=== PATIENT | male | born 1930 | race Caucasian/White ===

== ENCOUNTER 2017-03-01 23:25 | Inpatient (IN) | payer MEDICARE, OTHER ==
[~2017-03-01] VITALS: Ht 182.9 cm; Wt 101.6 kg
[~2017-03-01 23:25] MED LIST: ACET325T9 PO; CYAN10005 PO; DONE10TA7 PO; INSU100V13 SQ; MELA3TAB2 PO; MEMA10TA PO; METF500T4 PO; OSEL75CA PO; QUET25TA5 PO; VALP250S3 PO
[2017-03-01] MEDS ORDERED: fentaNYL PF VIAL 100 MCG/2 ML VIAL IV PRN (23:30)
--- NOTE | 2017-03-01 23:46 | ED.ADGEN ---
Past Medical History Past Medical History: Anxiety, Dementia, Depression, Diabetes-Type II, Other Additional Past Medical Histor: Psychosis,Osteoarthritis, alzheimers, insomnia Past Surgical History: Other Additional Past Surgical Histo: unknown surgical hx. pt poor historian. Alcohol Use: None Drug Use: None Adult General Chief Complaint Chief Complaint: MECHANICAL FALL HPI HPI Patient is a 86-year-old man with a history of dementia, type 2 diabetes mellitus, anxiety, who presents to the emergency department via EMS from his nursing facility with report of fall and a rotated and shortened right lower extremity. Per EMS report, they were only given their details, the patient was lying in bed when the arrived, they were told by nursing staff that the patient had fallen, and there was concern for hip injury. C-collar placed upon arousing the emergency department based on patient's inability to answer questions, and concern for distracting injury with unclear history. Patient her report, is at baseline mental status this time, states that he usually does not answer questions, sometimes will speak but his speech is incomprehensible. Patient is awake, alert, and is moving his upper extremities, noted to have shortening rotation of the right lower extremity, grimacing with motion. Review of Systems Review of Systems Unable to obtain secondary to mental status and nonverbal status Current Medications Current Medications Current Medications Medications (Trade) Dose Ordered Sig/Jennifer Start Time Stop Time Status Last Admin Dose Admin Fentanyl Citrate (Fentanyl 2ml Vial) 25 mcg PRN Q15MIN PRN 03/01/17 23:30 03/02/17 23:29 03/02/17 00:49 25 MCG Allergies Allergies Allergies Coded Allergies Type Severity Reaction Last Updated Verified No Known Drug Allergies 09/20/13 No Physical Exam Physical Exam Constitutional: Well developed, well nourished, no acute distress, non-toxic appearance. [] HENT: Normocephalic, atraumatic, bilateral external ears normal, oropharynx moist, no oral exudates, nose normal. [] Eyes: PERRLA, EOMI, conjunctiva normal, no discharge. [] Neck: C-collar in place, symptoms or deformities appreciated, no tenderness, supple, no stridor. [] Cardiovascular:Heart rate regular rhythm, no murmur, S1, S2, 3-5 cm, rubs or gallops. [] Lungs & Thorax: Diminished breath sounds at bases bilaterally. No rhonchi or rales. Abdomen: Bowel sounds normal, soft, no rebound, rigidity, no guarding, no tenderness, no masses, no pulsatile masses. [] Skin: Warm, dry, no erythema, no rash. [] Back: No tenderness, no midline tenderness, step-offs or deformities, no signs of trauma, no CVA tenderness. [] Extremities: Patient with 2+ pitting edema bilaterally, noted have shortening and external rotation of the right lower extremity, with tenderness palpation of the left lower extremity, from the greater trochanter, down to the ankle, noted to have chronic venous stasis changes, no evidence of acute trauma. Adult diaper in place, no cyanosis, no clubbing, ROM intact, no edema. [] Patient moving upper extremity without issue, no evidence of injury. Neurologic: Patient is moving upper extremities, is alert and awake, at baseline mental status per report from nursing facility, Psychologic: Affect normal, judgement normal, mood normal. [] Current Patient Data Vital Signs Vital Signs Date Time Temp Pulse Resp B/P (MAP) Pulse Ox O2 Delivery O2 Flow Rate FiO2 03/02/17 01:19 clearing for ed 03/02/17 01:00 78 13 97 03/01/17 23:40 97.9 158/79 (105) 97.9 Lab Values Laboratory Tests Test 03/01/17 23:50 03/02/17 00:40 White Blood Count 13.0 x10^3/uL (4.0-11.0) H Red Blood Count 4.97 x10^6/uL (4.30-5.70) Hemoglobin 14.3 g/dL (13.0-17.5) Hematocrit 43.6 % (39.0-53.0) Mean Corpuscular Volume 88 fL (79-100) Mean Corpuscular Hemoglobin 29 pg (25-35) Mean Corpuscular Hemoglobin Concent 33 g/dL (31-37) Red Cell Distribution Width 14.4 % (11.5-14.5) Platelet Count 209 x10^3/uL (140-400) Neutrophils (%) (Auto) 81 % (31-73) H Lymphocytes (%) (Auto) 12 % (24-48) L Monocytes (%) (Auto) 7 % (0-9) Eosinophils (%) (Auto) 0 % (0-3) Basophils (%) (Auto) 0 % (0-3) Neutrophils # (Auto) 10.5 x10^3uL (1.8-7.7) H Lymphocytes # (Auto) 1.5 x10^3/uL (1.0-4.8) Monocytes # (Auto) 0.8 x10^3/uL (0.0-1.1) Eosinophils # (Auto) 0.0 x10^3/uL (0.0-0.7) Basophils # (Auto) 0.0 x10^3/uL (0.0-0.2) Sodium Level 140 mmol/L (136-145) Potassium Level 4.2 mmol/L (3.5-5.1) Chloride Level 102 mmol/L (98-107) Carbon Dioxide Level 29 mmol/L (21-32) Anion Gap 9 (6-14) Blood Urea Nitrogen 13 mg/dL (8-26) Creatinine 1.4 mg/dL (0.7-1.3) H Estimated GFR (Cockcroft-Gault) 47.9 BUN/Creatinine Ratio 9 (6-20) Glucose Level 187 mg/dL (70-99) H Calcium Level 8.9 mg/dL (8.5-10.1) Total Bilirubin 0.8 mg/dL (0.2-1.0) Aspartate Amino Transferase (AST) 25 U/L (15-37) Alanine Aminotransferase (ALT) 22 U/L (16-63) Alkaline Phosphatase 79 U/L (46-116) Myoglobin 314 ng/mL (16-96) H Troponin I Quantitative < 0.017 ng/mL (0.000-0.055) Total Protein 6.6 g/dL (6.4-8.2) Albumin 3.2 g/dL (3.4-5.0) L Albumin/Globulin Ratio 0.9 (1.0-1.7) L Urine Collection Type Unknown Urine Color Yellow Urine Clarity Clear Urine pH 8.5 Urine Specific [place] 1.015 Urine Protein Negative mg/dL (NEG-TRACE) Urine Glucose (UA) Negative mg/dL (NEG) Urine Ketones (Stick) 15 mg/dL (NEG) Urine Blood Negative (NEG) Urine Nitrite Negative (NEG) Urine Bilirubin Negative (NEG) Urine Urobilinogen Dipstick 1.0 mg/dL (0.2 mg/dL) Urine Leukocyte Esterase Negative (NEG) Urine RBC 3-5 /HPF (0-2) Urine WBC 0 /HPF (0-4) Urine Squamous Epithelial Cells Occ /LPF Urine Bacteria 0 /HPF (0-FEW) Urine Mucus Slight /LPF Laboratory Tests 03/01/17 23:50 Laboratory Tests 03/01/17 23:50 EKG EKG EC: Sinus rhythm, heart rate 77 beats/minute, left axis deviation, QTC of 436, HI 190, QRS of 88, a ramos with Q waves noted in the inferior leads, mild baseline artifact noted, abnormal ECG, does not meet STEMI criteria. As interpreted by me.[] Radiology/Procedures Radiology/Procedures [][facility] [address] [place], [place] [id number] IMAGING REPORT Signed PATIENT: MARIBEL LARSEN ACCOUNT: [id number] : 1930 LOCATION: ER AGE: 86 SEX: M EXAM STATUS: REG ER ORD. PHYSICIAN: TAMMI RALPH DO REASON: fall PROCEDURE: KNEE RIGHT 2V Right hip AP and lateral x-rays and AP pelvis x-ray HISTORY: Right-sided pain after a fall FINDINGS: There is decrease sensitivity to detect subtle bone pathology due to film technique and patient body habitus and patient motion during the exam. There is an acute femoral neck fracture with varus deformity with lucency of the lateral femoral neck presumably due to distraction of the fracture although a pathologic fracture due to a lytic bone lesion is not excluded. On the lateral film the femoral neck appears to be distracted anteriorly relative to the femoral head a mild degree. The remainder of the pelvis is unremarkable. IMPRESSION: Right acute femoral neck fracture as described above. Right knee x-rays 2 views HISTORY: Fall, right knee pain FINDINGS: No fracture or dislocation. Osteoarthritis of the medial compartment with full-thickness joint space loss and osteophytes with lesser degenerative change at the lateral and patellofemoral compartments. Chronic ossicle quadriceps tendon. Mild nasal soft tissue edema. IMPRESSION: No acute abnormality evident. Electronically signed by: Isabelle Jasso MD (03/02/2017 1:08 AM) [id number] DICTATED and SIGNED BY: ISABELLE JASSO MD DATE: 03/02/17 0104 CC: TAWANA MEIER; TAMMI RALPH DO ~ Impressions: [facility] [address] [place] [address] IMAGING REPORT Signed PATIENT: MARIBEL LARSEN ACCOUNT: [id number] : 1930 LOCATION: ER AGE: 86 SEX: M EXAM STATUS: REG ER ORD. PHYSICIAN: TAMMI RALPH DO REASON: Fall PROCEDURE: CT HEAD AND CERVICAL SPINE WO CT head without contrast. CT cervical spine without contrast. TECHNIQUE: 5 mm axial noncontrast imaging skull base to vertex. Helical noncontrast imaging of the cervical spine. HISTORY: Trauma, fell and hit head, head pain. 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 Generalized brain atrophy. Cerebral periventricular white matter hypoattenuation likely changes of chronic microvascular disease. No intracranial hemorrhage, mass, hydrocephalus or acute infarction. Orbits, paranasal sinuses, mastoids and bones are unremarkable. IMPRESSION: No acute intracranial CT abnormality. CT cervical spine findings: There is significant patient motion at the craniocervical junction and C1 and C2 vertebra limiting evaluation for injuries including fractures at these levels. No gross evidence of fracture of the C1 or C2 vertebra. Remainder of the cervical spine demonstrates intact vertebral body height and alignment. 1 mm anterolisthesis C7 on T1 associated with facet osteoarthritis. No fracture evident. If there is clinical suspicion of a traumatic injury of the upper cervical spine consider follow-up imaging. Multilevel disc height loss and disc osteophytes and uncovertebral and facet osteophytes with spinal canal and neural foraminal stenoses. Lung apices and paraspinal tissues are unremarkable. IMPRESSION: Extensive motion artifact at the upper cervical spine limiting evaluation of the C1 and C2 vertebra. The remainder of the cervical spine imaged without patient motion demonstrates no acute injury. Cervical disc disease is present. See discussion above. Exposure: One or more of the following individualized dose reduction techniques were utilized for this examination: 1. Automated exposure control 2. Adjustment of the mA and/or kV according to patient size 3. Use of iterative reconstruction technique Electronically signed by: Isabelle Jasso MD (03/02/2017 12:35 AM) [facility] DICTATED and SIGNED BY: ISABELLE JASSO MD DATE: 03/02/1726 CC: TAWANA MEIER; TAMMI RALPH DO ~ Course & Med Decision Making Course & Med Decision Making Pertinent Labs and Imaging studies reviewed. (See chart for details) Limited information available upon patient's arrival to the ED, imaging of the head and neck were ordered, along with laboratory studies an ECG, and imaging of the right lower extremity and pelvis. Additional information obtained from nursing facility by nurse Lau, per nursing report, patient had a fall around 4:30 in the afternoon while ambulating with assistance of the staff member, which is his usual mode of ambulation. Per report, patient tripped and had a mechanical fall. Patient was then moved to his bed, and was unwilling to weight bear at that time, therefore portable x-ray was ordered, but nursing facility was apparently unable to obtain portal x-ray, therefore EMS was contacted to transfer the patient to the ED for evaluation. There was no prolonged downtime, and no evidence of concerning symptoms preceding this fall per report. CT of the head and neck obtained, somewhat limited secondary to motion artifact, but no gross fractures or other abnormalities identified, patient's c-collar was cleared in the ED. X-ray of the right hip reveals a right femoral neck fracture , other x-rays are unremarkable. [place] catheter placed in the ED. No evidence of UTI, no other acutely concerning findings identified. I did discuss findings as above with Dr. Conte, the patient's primary care provider, patient was accepted his service as a full admission to the medical telemetry floor, with symptom management including pain medication and antinausea medication written for, consultation placed for Dr. Burgess of orthopedics to evaluate the patient in the morning. Bridge orders entered per discussion. Dragon Disclaimer Dragon Disclaimer This electronic medical record was generated, in whole or in part, using a voice recognition dictation system. Departure Impression: Primary Impression: Fracture of femoral neck, right Disposition: ADMITTED INPATIENT Admitting Physician: Daniele Jones Condition: IMPROVED TAMMI RALPH DO Mar 01, 2017 23:46
[2017-03-02] LABS: BASO % 0 % (0-3); EOS % 0 % (0-3); HEMATOCRIT 43.6 % (39.0-53.0); HEMOGLOBIN 14.3 g/dL (13.0-17.5); LYMPH # 1.5 x10^3/uL (1.0-4.8); LYMPH % 12 % (24-48); MEAN CORPUSCULAR HEMOGLOBIN 29 pg (25-35); MEAN CORPUSCULAR HGB CONC 33 g/dL (31-37); MEAN CORPUSCULAR VOLUME 88 fL (79-100); MONO % 7 % (0-9); NEUT % 81 % (31-73); PLATELET COUNT 209 x10^3/uL (140-400); RED BLOOD COUNT 4.97 x10^6/uL (4.30-5.70); RED CELL DISTRIBUTION WIDTH 14.4 % (11.5-14.5)
[2017-03-02 00:13] LABS: CALCIUM 8.9 mg/dL (8.5-10.1); CREATININE 1.4 mg/dL (0.7-1.3); GFR 47.9; POTASSIUM 4.2 mmol/L (3.5-5.1)
[2017-03-02 00:20] LABS: ALBUMIN 3.2 g/dL (3.4-5.0); ALBUMIN/GLOBULIN RATIO 0.9 (1.0-1.7); TOTAL BILIRUBIN 0.8 mg/dL (0.2-1.0); TOTAL PROTEIN 6.6 g/dL (6.4-8.2)
--- NOTE | 2017-03-02 00:38 | RAD ---
CT head without contrast. CT cervical spine without contrast. TECHNIQUE: 5 mm axial noncontrast imaging skull base to vertex. Helical noncontrast imaging of the cervical spine. HISTORY: Trauma, fell and hit head, head pain. 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 Generalized brain atrophy. Cerebral periventricular white matter hypoattenuation likely changes of chronic microvascular disease. No intracranial hemorrhage, mass, hydrocephalus or acute infarction. Orbits, paranasal sinuses, mastoids and bones are unremarkable. IMPRESSION: No acute intracranial CT abnormality. CT cervical spine findings: There is significant patient motion at the craniocervical junction and C1 and C2 vertebra limiting evaluation for injuries including fractures at these levels. No gross evidence of fracture of the C1 or C2 vertebra. Remainder of the cervical spine demonstrates intact vertebral body height and alignment. 1 mm anterolisthesis C7 on T1 associated with facet osteoarthritis. No fracture evident. If there is clinical suspicion of a traumatic injury of the upper cervical spine consider follow-up imaging. Multilevel disc height loss and disc osteophytes and uncovertebral and facet osteophytes with spinal canal and neural foraminal stenoses. Lung apices and paraspinal tissues are unremarkable. IMPRESSION: Extensive motion artifact at the upper cervical spine limiting evaluation of the C1 and C2 vertebra. The remainder of the cervical spine imaged without patient motion demonstrates no acute injury. Cervical disc disease is present. See discussion above. Exposure: One or more of the following individualized dose reduction techniques were utilized for this examination: 1. Automated exposure control 2. Adjustment of the mA and/or kV according to patient size 3. Use of iterative reconstruction technique Electronically signed by: Klaus Jasso MD (03/02/2017 12:35 AM) [facility]
[2017-03-02 00:51] LABS: BILIRUBIN,URINE NEGATIVE (NEG); GLUCOSE,URINE NEGATIVE (NEG); NITRITE,URINE NEGATIVE (NEG); PH,URINE 8.5; PROTEIN,URINE NEGATIVE (NEG-TRACE)
[2017-03-02 01:03] LABS: BACTERIA,URINE 0 /HPF (0-FEW); SQUAMOUS EPITHELIAL CELL,UR OCC /LPF; WBC,URINE 0 /HPF (0-4)
--- NOTE | 2017-03-02 01:11 | RAD ---
Right hip AP and lateral x-rays and AP pelvis x-ray HISTORY: Right-sided pain after a fall FINDINGS: There is decrease sensitivity to detect subtle bone pathology due to film technique and patient body habitus and patient motion during the exam. There is an acute femoral neck fracture with varus deformity with lucency of the lateral femoral neck presumably due to distraction of the fracture although a pathologic fracture due to a lytic bone lesion is not excluded. On the lateral film the femoral neck appears to be distracted anteriorly relative to the femoral head a mild degree. The remainder of the pelvis is unremarkable. IMPRESSION: Right acute femoral neck fracture as described above. Right knee x-rays 2 views HISTORY: Fall, right knee pain FINDINGS: No fracture or dislocation. Osteoarthritis of the medial compartment with full-thickness joint space loss and osteophytes with lesser degenerative change at the lateral and patellofemoral compartments. Chronic ossicle quadriceps tendon. Mild nasal soft tissue edema. IMPRESSION: No acute abnormality evident. Electronically signed by: Klaus Jasso MD (03/02/2017 1:08 AM) [facility]
[2017-03-02] MEDS ORDERED: ACETAMINOPHEN 325 MG TABLET. PO PRN (02:00)
[2017-03-02] MEDS ORDERED: ONDANSETRON PF 4 MG/2 ML VIAL. IV PRN (02:00)
[2017-03-02 02:30] VITALS: BP 142/68
[2017-03-02] MEDS ORDERED: DEXTROSE 50% 25 GM / 50ML DISP.SYRIN. IV PRN (02:30)
[2017-03-02] MEDS ORDERED: FURO-69 PO (04:40)
[2017-03-02] MEDS ORDERED: IPRA0.2S5 NEB (04:40)
[2017-03-02] MEDS ORDERED: SIMV10TA3 PO (04:40)
[2017-03-02] MEDS ORDERED: MEMA10TA PO (04:40)
[2017-03-02] MEDS ORDERED: POTA20LI27 PO (04:40)
[2017-03-02] MEDS ORDERED: DONE10TA61 PO (04:40)
[2017-03-02] MEDS ORDERED: LEVO50TA5 PO (04:40)
[2017-03-02] MEDS ORDERED: ONDA4TAB10 SL (04:40)
[2017-03-02] MEDS ORDERED: INSU100V13 SQ (04:40)
[2017-03-02] MEDS ORDERED: LORA10TA68 PO (04:40)
[2017-03-02] MEDS ORDERED: ACET500T68 PO (04:40)
[2017-03-02 07:00] VITALS: BP 118/64
--- NOTE | 2017-03-02 07:54 | EKG ---
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
[2017-03-02] MEDS: INSULIN ASPART 300 UNITS/3 ML INSULN.PEN SQ SCH ×3 (08:00→17:14)
--- NOTE | 2017-03-02 08:20 | PDOC ---
ORTHO PROGRESS NOTES Vitals Vital Signs Date Time Temp Pulse Resp B/P (MAP) Pulse Ox O2 Delivery O2 Flow Rate FiO2 03/02/17 03:02 Room Air 03/02/17 02:30 97.9 79 15 142/68 (92) 95 97.9 Labs Laboratory Tests Test 03/01/17 23:50 03/02/17 00:40 White Blood Count 13.0 x10^3/uL (4.0-11.0) Red Blood Count 4.97 x10^6/uL (4.30-5.70) Hemoglobin 14.3 g/dL (13.0-17.5) Hematocrit 43.6 % (39.0-53.0) Mean Corpuscular Volume 88 fL (79-100) Mean Corpuscular Hemoglobin 29 pg (25-35) Mean Corpuscular Hemoglobin Concent 33 g/dL (31-37) Red Cell Distribution Width 14.4 % (11.5-14.5) Platelet Count 209 x10^3/uL (140-400) Neutrophils (%) (Auto) 81 % (31-73) Lymphocytes (%) (Auto) 12 % (24-48) Monocytes (%) (Auto) 7 % (0-9) Eosinophils (%) (Auto) 0 % (0-3) Basophils (%) (Auto) 0 % (0-3) Neutrophils # (Auto) 10.5 x10^3uL (1.8-7.7) Lymphocytes # (Auto) 1.5 x10^3/uL (1.0-4.8) Monocytes # (Auto) 0.8 x10^3/uL (0.0-1.1) Eosinophils # (Auto) 0.0 x10^3/uL (0.0-0.7) Basophils # (Auto) 0.0 x10^3/uL (0.0-0.2) Sodium Level 140 mmol/L (136-145) Potassium Level 4.2 mmol/L (3.5-5.1) Chloride Level 102 mmol/L (98-107) Carbon Dioxide Level 29 mmol/L (21-32) Anion Gap 9 (6-14) Blood Urea Nitrogen 13 mg/dL (8-26) Creatinine 1.4 mg/dL (0.7-1.3) Estimated GFR (Cockcroft-Gault) 47.9 BUN/Creatinine Ratio 9 (6-20) Glucose Level 187 mg/dL (70-99) Calcium Level 8.9 mg/dL (8.5-10.1) Total Bilirubin 0.8 mg/dL (0.2-1.0) Aspartate Amino Transf (AST/SGOT) 25 U/L (15-37) Alanine Aminotransferase (ALT/SGPT) 22 U/L (16-63) Alkaline Phosphatase 79 U/L (46-116) Myoglobin 314 ng/mL (16-96) Troponin I Quantitative < 0.017 ng/mL (0.000-0.055) Total Protein 6.6 g/dL (6.4-8.2) Albumin 3.2 g/dL (3.4-5.0) Albumin/Globulin Ratio 0.9 (1.0-1.7) Urine Collection Type Unknown Urine Color Yellow Urine Clarity Clear Urine pH 8.5 Urine Specific [place] 1.015 Urine Protein Negative mg/dL (NEG-TRACE) Urine Glucose (UA) Negative mg/dL (NEG) Urine Ketones (Stick) 15 mg/dL (NEG) Urine Blood Negative (NEG) Urine Nitrite Negative (NEG) Urine Bilirubin Negative (NEG) Urine Urobilinogen Dipstick 1.0 mg/dL (0.2 mg/dL) Urine Leukocyte Esterase Negative (NEG) Urine RBC 3-5 /HPF (0-2) Urine WBC 0 /HPF (0-4) Urine Squamous Epithelial Cells Occ /LPF Urine Bacteria 0 /HPF (0-FEW) Urine Mucus Slight /LPF Laboratory Tests Test 03/01/17 23:50 03/02/17 00:40 White Blood Count 13.0 x10^3/uL (4.0-11.0) Red Blood Count 4.97 x10^6/uL (4.30-5.70) Hemoglobin 14.3 g/dL (13.0-17.5) Hematocrit 43.6 % (39.0-53.0) Mean Corpuscular Volume 88 fL (79-100) Mean Corpuscular Hemoglobin 29 pg (25-35) Mean Corpuscular Hemoglobin Concent 33 g/dL (31-37) Red Cell Distribution Width 14.4 % (11.5-14.5) Platelet Count 209 x10^3/uL (140-400) Neutrophils (%) (Auto) 81 % (31-73) Lymphocytes (%) (Auto) 12 % (24-48) Monocytes (%) (Auto) 7 % (0-9) Eosinophils (%) (Auto) 0 % (0-3) Basophils (%) (Auto) 0 % (0-3) Neutrophils # (Auto) 10.5 x10^3uL (1.8-7.7) Lymphocytes # (Auto) 1.5 x10^3/uL (1.0-4.8) Monocytes # (Auto) 0.8 x10^3/uL (0.0-1.1) Eosinophils # (Auto) 0.0 x10^3/uL (0.0-0.7) Basophils # (Auto) 0.0 x10^3/uL (0.0-0.2) Sodium Level 140 mmol/L (136-145) Potassium Level 4.2 mmol/L (3.5-5.1) Chloride Level 102 mmol/L (98-107) Carbon Dioxide Level 29 mmol/L (21-32) Anion Gap 9 (6-14) Blood Urea Nitrogen 13 mg/dL (8-26) Creatinine 1.4 mg/dL (0.7-1.3) Estimated GFR (Cockcroft-Gault) 47.9 BUN/Creatinine Ratio 9 (6-20) Glucose Level 187 mg/dL (70-99) Calcium Level 8.9 mg/dL (8.5-10.1) Total Bilirubin 0.8 mg/dL (0.2-1.0) Aspartate Amino Transf (AST/SGOT) 25 U/L (15-37) Alanine Aminotransferase (ALT/SGPT) 22 U/L (16-63) Alkaline Phosphatase 79 U/L (46-116) Myoglobin 314 ng/mL (16-96) Troponin I Quantitative < 0.017 ng/mL (0.000-0.055) Total Protein 6.6 g/dL (6.4-8.2) Albumin 3.2 g/dL (3.4-5.0) Albumin/Globulin Ratio 0.9 (1.0-1.7) Urine Collection Type Unknown Urine Color Yellow Urine Clarity Clear Urine pH 8.5 Urine Specific [place] 1.015 Urine Protein Negative mg/dL (NEG-TRACE) Urine Glucose (UA) Negative mg/dL (NEG) Urine Ketones (Stick) 15 mg/dL (NEG) Urine Blood Negative (NEG) Urine Nitrite Negative (NEG) Urine Bilirubin Negative (NEG) Urine Urobilinogen Dipstick 1.0 mg/dL (0.2 mg/dL) Urine Leukocyte Esterase Negative (NEG) Urine RBC 3-5 /HPF (0-2) Urine WBC 0 /HPF (0-4) Urine Squamous Epithelial Cells Occ /LPF Urine Bacteria 0 /HPF (0-FEW) Urine Mucus Slight /LPF Assessment and Plan Xrays reviewed discussed with patient's POA, he would like to call other family very low level of ambulation per report from YENNY MINAYA II, MD Mar 02, 2017 08:20
--- NOTE | 2017-03-02 08:20 | RAD ---
2 view right ankle study Clinical indications: Fall and pain. Findings: No acute fracture or dislocation or osteolytic process is seen. The mortise ankle joint is intact. IMPRESSION: No acute fracture.
--- NOTE | 2017-03-02 08:23 | RAD ---
Portable AP supine view CXR: Clinical indications: Fall and pain.. Comparison: May 31, 2014. Findings: No acute lung infiltrate or pleural effusion or pulmonary edema or lung mass or pneumothorax is seen. The heart size, pulmonary vasculature, mediastinum and both manny are unremarkable. No obvious rib deformity is seen. Impression: No acute radiographic abnormality is seen.
--- NOTE | 2017-03-02 08:58 | PDOC ---
Provider Note Provider Note [id number] JESSICA VERDUGO MD Mar 02, 2017 08:58
[2017-03-02] MEDS: POTASSIUM CL 20MEQ D5-0.45NACL 1,000 ML IV SCH ×2 (09:00→22:20)
[2017-03-02] MEDS: CYANOCOBALAMIN (VITAMIN B-12) 1,000 MCG TABLET. PO SCH ×2 (09:00→10:16)
[2017-03-02] MEDS: LEVOTHYROXINE 50 MCG TABLET PO SCH ×2 (09:00→10:16)
[2017-03-02] MEDS: POTASSIUM CHLORIDE 20 MEQ/15 ML ORAL LIQUID. PO SCH ×2 (09:00→10:16)
[2017-03-02] MEDS ORDERED: ONDANSETRON ODT 4 MG TAB.RAPDIS. PO PRN (09:00)
[2017-03-02] MEDS: VALPROIC ACID (AS SODIUM SALT) 250 MG/5 ML SOLUTION. PO SCH ×3 (09:00→21:00)
[2017-03-02] MEDS: DONEPEZIL HCL 10 MG TABLET. PO SCH (09:00)
--- NOTE | 2017-03-02 09:22 | CONS ---
DATE OF CONSULTATION: 03/02/2017 DATE OF SERVICE: 03/02/2017 REFERRING PHYSICIAN: Daniele Jones MD CONSULTING PROVIDER: Aneudy Burgess MD REASON FOR CONSULTATION: Right femoral neck fracture. CHIEF COMPLAINT: Unobtainable. HISTORY OF PRESENT ILLNESS: The patient is an 86-year-old with advanced Alzheimer dementia who normally ambulates at a very low level, he requires 2 people to get up and will shuffle for very short distances. He was found down at his long term and was brought in for concern over a hip injury. The patient is normally noncommunicative and has not talked for 6-7 years per his power of workers compensation defense attorney. REVIEW OF SYSTEMS: Unobtainable secondary to the patient's baseline mental status. MEDICATIONS: Reviewed, please see MRAD. ALLERGIES: None. FAMILY HISTORY: Unobtainable. SOCIAL HISTORY: Resides in a long term. PHYSICAL EXAMINATION: GENERAL: The patient is awake. He does not answer or ask questions. He does not follow commands. HEENT: Head normocephalic, atraumatic. CARDIOVASCULAR: Regular rate and rhythm. He does have edema bilaterally at his ankles. LUNGS: Respirations are unlabored and symmetric chest rise. ABDOMEN: Soft, nondistended. EXTREMITIES: Examination of bilateral lower extremities reveals chronic venous stasis changes bilaterally. Dorsalis pedis 1+. He does spontaneously wiggle his toes bilaterally. His right lower extremity is shortened and externally rotated. IMAGING: X-rays that were interpreted by myself. Knee ankle and hip x-rays. He has degenerative changes present in his knee. He has a complete femoral neck fracture on the right side. LABORATORY DATA: Reviewed. CBC and CMP were reviewed. His creatinine is slightly elevated. IMPRESSION: 1. Closed right femoral neck fracture. 2. Alzheimer dementia. PLAN: I did discuss with this patient's power of workers compensation defense attorney the pros and cons of operative versus nonoperative treatment. The patient's power of workers compensation defense attorney was uncertain how he would like to proceed and would like to discuss it with other family members today. Plan is for this gentleman to call us back sometime today after he has had a chance to do so and let us know what the family's wishes are. Regardless of treatment, I do not think that surgical intervention versus nonsurgical intervention would result in any change in ambulation in the future. ANEUDY BURGESS MD DR: Cyndy JOB#: [id number] / [id number] LILLIAM
--- NOTE | 2017-03-02 09:35 | HP ---
ADMIT DATE: 03/02/2017 DATE OF SERVICE: 03/02/2017 CHIEF COMPLAINT: Fall. HISTORY OF PRESENT ILLNESS: The patient is an 86-year-old white male with advanced dementia. A patient of Dr. Jones, who apparently had a fall and has right femoral neck fracture. Dr. Toussaint has talked to the family and they are considering operative intervention versus comfort care at this point given the patient's advanced level of dementia. He lives in [place] and apparently is nonverbal and otherwise has been in good health. PAST MEDICAL HISTORY: Largely unknown. MEDICATIONS: Listed per the chart shows he has insulin-dependent diabetes, dementia and hypothyroidism. ALLERGIES: No allergies are known. PAST SURGICAL HISTORY: Unknown. SOCIAL HISTORY: Lives in a [place], nonsmoker, nondrinker, apparently . FAMILY HISTORY: Unknown. REVIEW OF SYSTEMS: No other specific complaints. PHYSICAL EXAMINATION: ENT: He has warty lesion on the left upper eyelid, otherwise all within normal limits except mucosa are somewhat dry. NECK: No carotid bruits, nodes or thyroid enlargement. LUNGS: Clear. CARDIOVASCULAR: Regular rate. No irregular beat or murmur. ABDOMEN: Soft, benign and nontender. EXTREMITIES: Right leg is shortened and externally rotated with compression devices on. NEUROLOGIC: Nonfocal, nonverbal, not responsive to questions. No tremors are noted. ASSESSMENT: Advanced dementia with right femoral neck fracture. Laboratory is unremarkable. PLAN: DNR, comfort care, IV fluids till operative decision was made by the family. JESSICA VERDUGO MD DR: HOLDEN/aba JOB#: [id number] / [id number]
[2017-03-02 11:00] VITALS: BP 138/56
[2017-03-02] MEDS: MORPHINE SULFATE 4 MG/ML DISP.SYRIN. IV PRN ×2 (12:23→17:26)
[2017-03-02] MEDS: ACETAMINOPHEN 500 MG TABLET PO SCH (13:00)
[2017-03-02] MEDS: MEMANTINE 10 MG TABLET. PO SCH (13:00)
[2017-03-02 15:00] VITALS: BP 110/55
[2017-03-02 19:00] VITALS: BP 120/57
[2017-03-02] MEDS: SIMVASTATIN 10 MG TABLET PO SCH (21:00)
[2017-03-02 23:00] VITALS: BP 133/57
[2017-03-03] VITALS (11 sets, daily range): BP systolic 84–142; BP diastolic 47–89
[2017-03-03 06:19] LABS: BASO # 0.1 x10^3/uL (0.0-0.2); BASO % 1 % (0-3); EOS % 3 % (0-3); HEMATOCRIT 39.7 % (39.0-53.0); HEMOGLOBIN 13.3 g/dL (13.0-17.5); LYMPH # 1.8 x10^3/uL (1.0-4.8); LYMPH % 18 % (24-48); MEAN CORPUSCULAR HEMOGLOBIN 29 pg (25-35); MEAN CORPUSCULAR HGB CONC 33 g/dL (31-37); MEAN CORPUSCULAR VOLUME 87 fL (79-100); MONO % 8 % (0-9); NEUT % 71 % (31-73); PLATELET COUNT 168 x10^3/uL (140-400); RED BLOOD COUNT 4.54 x10^6/uL (4.30-5.70); RED CELL DISTRIBUTION WIDTH 14.7 % (11.5-14.5)
[2017-03-03 06:38] LABS: CALCIUM 8.4 mg/dL (8.5-10.1); CREATININE 1.5 mg/dL (0.7-1.3); GFR 44.3; POTASSIUM 4.2 mmol/L (3.5-5.1)
[2017-03-03] MEDS: LEVOTHYROXINE 50 MCG TABLET PO SCH (07:00)
[2017-03-03] MEDS: INSULIN ASPART 300 UNITS/3 ML INSULN.PEN SQ SCH ×3 (08:00→18:24)
[2017-03-03] MEDS: DONEPEZIL HCL 10 MG TABLET. PO SCH (08:58)
[2017-03-03] MEDS: VALPROIC ACID (AS SODIUM SALT) 250 MG/5 ML SOLUTION. PO SCH ×2 (08:58→21:00)
[2017-03-03] MEDS: CYANOCOBALAMIN (VITAMIN B-12) 1,000 MCG TABLET. PO SCH (08:58)
[2017-03-03] MEDS: POTASSIUM CHLORIDE 20 MEQ/15 ML ORAL LIQUID. PO SCH (08:58)
[2017-03-03] MEDS: ACETAMINOPHEN 500 MG TABLET PO SCH (08:59)
[2017-03-03] MEDS: MEMANTINE 10 MG TABLET. PO SCH (08:59)
--- NOTE | 2017-03-03 10:55 | PDOC ---
BRIEF OPERATIVE NOTE Date: Mar 03, 2017 Pre-Op Diagnosis R femoral neck fx Post-Op Diagnosis same Procedure Performed R hip cira Surgeon [facility] Advisor Nani Anesthesiologist Rocío Anesthesia Type: General, Local Complications none YENNY SARAVIA II, MD Mar 03, 2017 10:55
[2017-03-03] MEDS: IV RINGERS,LACTATED 1000ML 1,000 ML IV SCH (11:15)
[2017-03-03] MEDS ORDERED: MORPHINE SULFATE 5 MG, KETOROLAC 30 MG, ROPIVacaine 0.5% PF 60 ML, EPINEPHrine 0.5 MG i... INT ART ONE ×5 (11:30)
[2017-03-03] MEDS ORDERED: fentaNYL PF VIAL 100 MCG/2 ML VIAL ONE (11:35)
[2017-03-03] MEDS ORDERED: ONDANSETRON PF 4 MG/2 ML VIAL. ONE (11:38)
[2017-03-03] MEDS ORDERED: LIDOCAINE 2% PF Vial for OR 5 ML VIAL. ONE (11:38)
[2017-03-03] MEDS ORDERED: FAMOTIDINE 20 MG/2 ML VIAL ONE (11:38)
[2017-03-03] MEDS ORDERED: DEXAMETHASONE SOD PHOS 20 MG/5 ML VIAL. ONE (11:38)
[2017-03-03] MEDS ORDERED: PROPOFOL 20 ML IV ONE (11:38)
[2017-03-03] MEDS ORDERED: GLYCOPYRROLATE 1 MG/5 ML VIAL. ONE (11:59)
[2017-03-03] MEDS ORDERED: NEOSTIGMINE METHYLSULFATE 5 MG/5 ML SYRINGE. ONE (12:24)
[2017-03-03] MEDS ORDERED: ROCURONIUM 100 MG/10 ML VIAL. ONE (12:27)
[2017-03-03] MEDS ORDERED: DESFLURANE > 120 MINUTES IH ONE (13:19)
[2017-03-03] MEDS ORDERED: IV RINGERS,LACTATED 1000ML 1,000 ML IV SCH (14:07)
--- NOTE | 2017-03-03 14:10 | OP ---
DATE OF SURGERY: 03/03/2017 SURGEON: Aneudy Saravia MD. GRAPHIC TECHNICIAN: Jaye Cardoza. ANESTHESIA: General plus local. PREOPERATIVE DIAGNOSIS: Complete right femoral neck fracture. POSTOPERATIVE DIAGNOSIS: Complete right femoral neck fracture. PROCEDURE PERFORMED: Right hip hemiarthroplasty. ESTIMATED BLOOD LOSS: 100 mL. COMPONENTS INSERTED: [employer]hew size 9 Synergy cemented stem with +0, 50 mm cobalt chrome unipolar head. Distal centralized was used. REASON FOR PROCEDURE: The patient is a gentleman with Alzheimer dementia who had a fall. He normally was able to ambulate with assistance, but has been unable to do so or willing to attempt. He has also been in a lot of pain with any transfers or motions in his leg. Because of this, I had a discussion of risks, benefits, alternatives of the above surgery with his family members and they wished to proceed with above surgery. DESCRIPTION OF PROCEDURE: The patient was greeted in the preoperative area by myself. Correct extremity was marked and verified. He was taken to the operative suite and antibiotics were started en route. Once in the OR, transferred gently supine to the OR table after successful induction of a general anesthetic. We then laid him in the lateral decubitus position with the right side up and secured him to the bed with our hip positioning device. An axillary roll was used. We then proceeded to prep and drape right lower extremity and hip in our usual sterile fashion and conducted our standard preoperative timeout. I then made my standard posterolateral skin incision, dissected subcutaneous tissue with electrocautery and cauterized bleeders as they were encountered. I identified his fascia and incised this in line with the skin incision. He had a large amount of hemorrhagic bursal tissue and clot and I debrided some of this. I incised his hip capsule and identified the fracture site. I then repositioned his leg and palpated for his lesser trochanter and protected his femoral neck with a Homans' and made my neck cut 1 cm proximal to lesser trochanter. I removed the loose bony debris as well as the femoral head. I irrigated out the acetabulum now to make sure I removed all loose bony debris. I then tagged the ends of the capsule for later identification and repair. After this, I trialled different ball sizes and the 50 gave a great fit. I then repositioned his leg and delivered the proximal femur in the operative field with an elevator. I then began broaching and broached to size 9, which gave a good fit and fill. I felt it was still a little loose, I went up to size 10. We then trialled a standard +0 head; however, I was not able to get this reduced, so I downsized to the 9 broach again and I was able to relocate the hip with the trial ball and +0 and standard neck combination. I felt that his leg had been restored appropriately. I then removed all trial components and irrigated out the acetabulum and then cemented in place the above combination components. After this I held pressure on the stem until the cement polymerized. While this was occurring, all loose cement was removed from around the neck. We then inspected the cup to make sure all bone debris and cement had been removed from the acetabulum. I then irrigated out the acetabulum. We then washed and dried the Stephenson taper region and gently impacting the head onto the stem. I then reduced the hip. We then closed the capsule with simple interrupted #2 Ethibond. We then irrigated out the operative field again and closed his fascia. I then injected my periarticular mixture in the álvaro-incisional area. Inverted interrupted 0 and 2-0 were used for subcutaneous tissue in a multilayered fashion followed by lobito for skin. He tolerated the surgery well. Prior to completion of wound closure, all counts were reported correct x 2. No complications. At the conclusion of surgery, he was awakened from anesthesia, transferred gently supine to the recovery room cart and taken to PACU in stable and extubated condition. Postoperative plan is to admit him to the care of the hospitalist on floor. He will receive DVT and antibiotic prophylaxis. ANEUDY SARAVIA MD DR: ESTEVAN/aba JOB#: [id number] / [id number] LILLIAM
[2017-03-03] MEDS: MORPHINE SULFATE 2 MG/ML DISP.SYRIN. IV PRN ×2 (14:13→14:49)
[2017-03-03] MEDS ORDERED: HYDROmorphone 2 MG/ML VIAL IV PRN (14:15)
[2017-03-03] MEDS ORDERED: LIDOCAINE 1% PF 2 ML VIAL. ID PRN (14:15)
[2017-03-03] MEDS ORDERED: fentaNYL PF VIAL 100 MCG/2 ML VIAL IV PRN ×2 (14:15)
[2017-03-03] MEDS ORDERED: PROCHLORPERAZINE 10 MG/2 ML VIAL. IV PRN (14:15)
--- NOTE | 2017-03-03 14:30 | PDOC ---
PROGRESS NOTES Subjective Subjective Pt currently in surgery. Objective Objective Vital Signs Date Time Temp Pulse Resp B/P (MAP) Pulse Ox O2 Delivery O2 Flow Rate FiO2 03/03/17 14:13 21 03/03/17 14:10 90 143/69 95 Simple Mask 10 03/03/17 13:40 98.1 98.1 Intake and Output 03/04/17 07:00 Intake Total 950 ml Output Total 685 ml Balance 265 ml IV Total 950 ml Output Urine Total 585 ml Estimated Blood Loss 100 ml Assessment Assessment Problems Medical Problems: (1) Fracture of femoral neck, right Status: Acute Plan Plan of Care Right femoral hip fx - pt currently in surgery Alzheimer dementia with behavioral outbursts - Pt on Namenda, Aricept and Depakote DM -Pt on Novolog sliding scale Hypothyroidism -Pt on Levothyroxine Comment Review of Relevant I have reviewed the following items sofie (where applicable) has been applied. Labs Laboratory Tests Test 03/01/17 23:50 03/02/17 00:40 03/02/17 01:55 03/02/17 08:18 White Blood Count 13.0 x10^3/uL (4.0-11.0) Red Blood Count 4.97 x10^6/uL (4.30-5.70) Hemoglobin 14.3 g/dL (13.0-17.5) Hematocrit 43.6 % (39.0-53.0) Mean Corpuscular Volume 88 fL (79-100) Mean Corpuscular Hemoglobin 29 pg (25-35) Mean Corpuscular Hemoglobin Concent 33 g/dL (31-37) Red Cell Distribution Width 14.4 % (11.5-14.5) Platelet Count 209 x10^3/uL (140-400) Neutrophils (%) (Auto) 81 % (31-73) Lymphocytes (%) (Auto) 12 % (24-48) Monocytes (%) (Auto) 7 % (0-9) Eosinophils (%) (Auto) 0 % (0-3) Basophils (%) (Auto) 0 % (0-3) Neutrophils # (Auto) 10.5 x10^3uL (1.8-7.7) Lymphocytes # (Auto) 1.5 x10^3/uL (1.0-4.8) Monocytes # (Auto) 0.8 x10^3/uL (0.0-1.1) Eosinophils # (Auto) 0.0 x10^3/uL (0.0-0.7) Basophils # (Auto) 0.0 x10^3/uL (0.0-0.2) Sodium Level 140 mmol/L (136-145) Potassium Level 4.2 mmol/L (3.5-5.1) Chloride Level 102 mmol/L (98-107) Carbon Dioxide Level 29 mmol/L (21-32) Anion Gap 9 (6-14) Blood Urea Nitrogen 13 mg/dL (8-26) Creatinine 1.4 mg/dL (0.7-1.3) Estimated GFR (Cockcroft-Gault) 47.9 BUN/Creatinine Ratio 9 (6-20) Glucose Level 187 mg/dL (70-99) Calcium Level 8.9 mg/dL (8.5-10.1) Total Bilirubin 0.8 mg/dL (0.2-1.0) Aspartate Amino Transf (AST/SGOT) 25 U/L (15-37) Alanine Aminotransferase (ALT/SGPT) 22 U/L (16-63) Alkaline Phosphatase 79 U/L (46-116) Myoglobin 314 ng/mL (16-96) Troponin I Quantitative < 0.017 ng/mL (0.000-0.055) Total Protein 6.6 g/dL (6.4-8.2) Albumin 3.2 g/dL (3.4-5.0) Albumin/Globulin Ratio 0.9 (1.0-1.7) Urine Collection Type Unknown Urine Color Yellow Urine Clarity Clear Urine pH 8.5 Urine Specific [place] 1.015 Urine Protein Negative mg/dL (NEG-TRACE) Urine Glucose (UA) Negative mg/dL (NEG) Urine Ketones (Stick) 15 mg/dL (NEG) Urine Blood Negative (NEG) Urine Nitrite Negative (NEG) Urine Bilirubin Negative (NEG) Urine Urobilinogen Dipstick 1.0 mg/dL (0.2 mg/dL) Urine Leukocyte Esterase Negative (NEG) Urine RBC 3-5 /HPF (0-2) Urine WBC 0 /HPF (0-4) Urine Squamous Epithelial Cells Occ /LPF Urine Bacteria 0 /HPF (0-FEW) Urine Mucus Slight /LPF Nasal Screen MRSA (PCR) Negative (Negative) Glucose (Fingerstick) 154 mg/dL (70-99) Test 03/02/17 12:05 03/02/17 16:34 03/02/17 21:04 03/03/17 05:25 Glucose (Fingerstick) 191 mg/dL (70-99) 195 mg/dL (70-99) 179 mg/dL (70-99) White Blood Count 10.0 x10^3/uL (4.0-11.0) Red Blood Count 4.54 x10^6/uL (4.30-5.70) Hemoglobin 13.3 g/dL (13.0-17.5) Hematocrit 39.7 % (39.0-53.0) Mean Corpuscular Volume 87 fL (79-100) Mean Corpuscular Hemoglobin 29 pg (25-35) Mean Corpuscular Hemoglobin Concent 33 g/dL (31-37) Red Cell Distribution Width 14.7 % (11.5-14.5) Platelet Count 168 x10^3/uL (140-400) Neutrophils (%) (Auto) 71 % (31-73) Lymphocytes (%) (Auto) 18 % (24-48) Monocytes (%) (Auto) 8 % (0-9) Eosinophils (%) (Auto) 3 % (0-3) Basophils (%) (Auto) 1 % (0-3) Neutrophils # (Auto) 7.1 x10^3uL (1.8-7.7) Lymphocytes # (Auto) 1.8 x10^3/uL (1.0-4.8) Monocytes # (Auto) 0.8 x10^3/uL (0.0-1.1) Eosinophils # (Auto) 0.3 x10^3/uL (0.0-0.7) Basophils # (Auto) 0.1 x10^3/uL (0.0-0.2) Sodium Level 137 mmol/L (136-145) Potassium Level 4.2 mmol/L (3.5-5.1) Chloride Level 104 mmol/L (98-107) Carbon Dioxide Level 26 mmol/L (21-32) Anion Gap 7 (6-14) Blood Urea Nitrogen 13 mg/dL (8-26) Creatinine 1.5 mg/dL (0.7-1.3) Estimated GFR (Cockcroft-Gault) 44.3 Glucose Level 213 mg/dL (70-99) Calcium Level 8.4 mg/dL (8.5-10.1) Test 03/03/17 07:27 03/03/17 10:46 Glucose (Fingerstick) 198 mg/dL (70-99) 200 mg/dL (70-99) Laboratory Tests Test 03/02/17 16:34 03/02/17 21:04 03/03/17 05:25 03/03/17 07:27 Glucose (Fingerstick) 195 mg/dL (70-99) 179 mg/dL (70-99) 198 mg/dL (70-99) White Blood Count 10.0 x10^3/uL (4.0-11.0) Red Blood Count 4.54 x10^6/uL (4.30-5.70) Hemoglobin 13.3 g/dL (13.0-17.5) Hematocrit 39.7 % (39.0-53.0) Mean Corpuscular Volume 87 fL (79-100) Mean Corpuscular Hemoglobin 29 pg (25-35) Mean Corpuscular Hemoglobin Concent 33 g/dL (31-37) Red Cell Distribution Width 14.7 % (11.5-14.5) Platelet Count 168 x10^3/uL (140-400) Neutrophils (%) (Auto) 71 % (31-73) Lymphocytes (%) (Auto) 18 % (24-48) Monocytes (%) (Auto) 8 % (0-9) Eosinophils (%) (Auto) 3 % (0-3) Basophils (%) (Auto) 1 % (0-3) Neutrophils # (Auto) 7.1 x10^3uL (1.8-7.7) Lymphocytes # (Auto) 1.8 x10^3/uL (1.0-4.8) Monocytes # (Auto) 0.8 x10^3/uL (0.0-1.1) Eosinophils # (Auto) 0.3 x10^3/uL (0.0-0.7) Basophils # (Auto) 0.1 x10^3/uL (0.0-0.2) Sodium Level 137 mmol/L (136-145) Potassium Level 4.2 mmol/L (3.5-5.1) Chloride Level 104 mmol/L (98-107) Carbon Dioxide Level 26 mmol/L (21-32) Anion Gap 7 (6-14) Blood Urea Nitrogen 13 mg/dL (8-26) Creatinine 1.5 mg/dL (0.7-1.3) Estimated GFR (Cockcroft-Gault) 44.3 Glucose Level 213 mg/dL (70-99) Calcium Level 8.4 mg/dL (8.5-10.1) Test 03/03/17 10:46 Glucose (Fingerstick) 200 mg/dL (70-99) Medications Current Medications Fentanyl Citrate (Fentanyl 2ml Vial) 25 mcg PRN Q15MIN PRN IV PAIN GREATER THAN 3/10 Last administered on 03/02/17 00:49; Start 03/01/17 at 23:30; Stop 03/02/17 at 23:29; Status DC Ondansetron HCl (Zofran) 4 mg PRN Q8HRS PRN IV NAUSEA/VOMITING; Start at 02:00; Stop 03/03/17 at 01:59; Status DC Morphine Sulfate 4 mg PRN Q2HR PRN IV SEVERE PAIN Last administered on 17:26; Start 03/02/17 at 02:00; Stop 03/03/17 at 01:59; Status DC Acetaminophen (Tylenol) 650 mg PRN Q4HRS PRN PO FEVER; Start 03/02/17 at 02:00 ; Stop 03/03/17 at 01:59; Status DC Insulin Aspart (NovoLOG) 0-5 UNITS TIDWMEALS SQ Last administered on 17:14; Start 03/02/17 at 08:00 Dextrose (Dextrose 50%-Water Syringe) 12.5 gm PRN Q15MIN PRN IV SEE COMMENTS; Start 03/02/17 at 02:30 Acetaminophen (Tylenol) 500 mg AFTRNOON PO ; Start 03/02/17 at 13:00 Cyanocobalamin (Vitamin B-12) 500 mcg DAILY PO ; Start 03/02/17 at 09:00 Donepezil HCl (Aricept) 10 mg DAILY PO ; Start 03/02/17 at 09:00 Levothyroxine Sodium (Synthroid) 50 mcg DAILY07 PO ; Start 03/02/17 at 09:00 Memantine (Namenda) 10 mg AFTRNOON PO ; Start 03/02/17 at 13:00 Ondansetron HCl (Zofran Odt) 4 mg PRN Q6HRS PRN PO NAUSEA/VOMITING; Start at 09:00 Potassium Chloride (KCl Oral Soln) 7.5 meq DAILY PO ; Start 03/02/17 at 09:00 Simvastatin (Zocor) 5 mg QHS PO ; Start 03/02/17 at 21:00 Valproic Acid (Depakene) 375 mg BID PO ; Start 03/02/17 at 09:00 Potassium Chloride/Dextrose/ Sod Cl 1,000 ml @ 75 mls/hr [id number] IV Last administered on 03/02/17 22:20; Start 03/02/17 at 09:00 Cefazolin Sodium/ Dextrose 50 ml @ 100 mls/hr 1X ONCE IV Last administered on 03/03/17 11:50; Start 03/03/17 at 07:45; Stop 03/03/17 at 08:14; Status DC Cefazolin Sodium/ Dextrose 50 ml @ 100 mls/hr Q6H IV ; Start 03/03/17 at 18:00 ; Stop 03/04/17 at 06:29 Enoxaparin Sodium (Lovenox 40mg Syringe) 40 mg Q24H SQ ; Start 03/04/17 at 08: 00 Morphine Sulfate 5 mg/Ketorolac Tromethamine 30 mg/Ropivacaine 60 ml/ Epinephrine HCl 0.5 mg/Sodium Chloride 100 ml @ 100 mls/hr 1X PERIOP ONCE INT ART Last administered on 03/03/17 12:13; Start 03/03/17 at 11:30; Stop at 12:29; Status DC Fentanyl Citrate (Fentanyl 2ml Vial) 100 mcg STK-MED ONCE .ROUTE ; Start at 11:35; Stop 03/03/17 at 11:36; Status DC Propofol 20 ml @ As Directed STK-MED ONCE IV ; Start 03/03/17 at 11:38; Stop 03/03/17 at 11:39; Status DC Dexamethasone Sodium Phosphate (Decadron) 20 mg STK-MED ONCE .ROUTE ; Start at 11:38; Stop 03/03/17 at 11:39; Status DC Famotidine (Pepcid) 20 mg STK-MED ONCE .ROUTE ; Start 03/03/17 at 11:38; Stop 03/03/17 at 11:39; Status DC Lidocaine HCl (Lidocaine Pf 2% Vial) 5 ml STK-MED ONCE .ROUTE ; Start 03/03/17 at 11:38; Stop 03/03/17 at 11:39; Status DC Ondansetron HCl (Zofran) 4 mg STK-MED ONCE .ROUTE ; Start 03/03/17 at 11:38; Stop 03/03/17 at 11:39; Status DC Ringer's Solution 1,000 ml @ 75 mls/hr [id number] IV Last administered on t 11:15; Start 03/03/17 at 12:00 Glycopyrrolate (Robinul) 1 mg STK-MED ONCE .ROUTE ; Start 03/03/17 at 11:59; Stop 03/03/17 at 12:00; Status DC Neostigmine Methylsulfate 5 mg STK-MED ONCE .ROUTE ; Start 03/03/17 at 12:24; Stop 03/03/17 at 12:25; Status DC Rocuronium [place] (Zemuron) 100 mg STK-MED ONCE .ROUTE ; Start 03/03/17 at 12: 27; Stop 03/03/17 at 12:28; Status DC Desflurane (Suprane) 90 ml STK-MED ONCE IH ; Start 03/03/17 at 13:19; Stop at 13:20; Status DC Fentanyl Citrate (Fentanyl 2ml Vial) 25 mcg PRN Q5MIN PRN IV MILD PAIN; Start 03/03/17 at 14:15; Stop 03/04/17 at 14:14 Fentanyl Citrate (Fentanyl 2ml Vial) 50 mcg PRN Q5MIN PRN IV MODERATE PAIN; Start 03/03/17 at 14:15; Stop 03/04/17 at 14:14 Morphine Sulfate 1 mg PRN Q10MIN PRN IV SEVERE PAIN Last administered on t 14:13; Start 03/03/17 at 14:15; Stop 03/04/17 at 14:14 Ringer's Solution 1,000 ml @ 30 mls/hr Q24H IV ; Start 03/03/17 at 14:07; Stop 03/04/17 at 02:06 Lidocaine HCl (Xylocaine-Mpf 1% Vial) 2 ml 1X PRN PRN ID IV START; Start 03/03 at 14:15; Stop 03/04/17 at 14:14 Hydromorphone HCl (Dilaudid) 0.5 mg PRN Q10MIN PRN IV SEV PAIN, Second choice; Start 03/03/17 at 14:15; Stop 03/04/17 at 14:14 Prochlorperazine Edisylate (Compazine) 5 mg PACU PRN PRN IV NAUSEA, MRX1 Last administered on 03/03/17t 14:13; Start 03/03/17 at 14:15; Stop 03/04/17 at 14 :14 Active Scripts Active Reported Ipratropium [place] 0.2 Mg/1 Ml Solution 1 Vial NEB PRN Q6HRS PRN Claritin (Loratadine) 10 Mg Tablet 1 Tab PO DAILY Aricept (Donepezil Hcl) 10 Mg Tablet 1 Tab PO DAILY Lasix (Furosemide) 20 Mg Tablet 1.5 Tab PO DAILY Levemir (Insulin Detemir) 100 Unit/1 Ml Vial 12 Unit SQ DAILY08 Levothyroxine Sodium 50 Mcg Tablet 1 Tab PO DAILY Namenda (Memantine Hcl) 10 Mg Tablet 10 Mg PO AFTRNOON Zofran Odt (Ondansetron) 4 Mg Tab.rapdis 1 Tab SL Q6HRS PRN Potassium Chloride Oral Liquid (Potassium Chloride) 20 Meq/15 Ml Liquid 7.5 Meq PO DAILY Simvastatin 10 Mg Tablet 0.5 Tab PO QHS Acetaminophen 500 Mg Tablet 500 Mg PO AFTRNOON Levemir (Insulin Detemir) 100 Unit/1 Ml Vial 14 Unit SQ HS Valproic Acid (Valproate Sodium) 250 Mg/5 Ml Solution 375 Mg PO BID Melatonin 3 Mg Tablet 1 Tab PO QHS Vitamin B-12 (Cyanocobalamin (Vitamin B-12)) 1,000 Mcg Tablet 500 Mcg PO DAILY Vitals/I & O Vital Sign - Last 24 Hours 03/02/17 03/02/17 03/02/17 03/02/17 15:00 17:26 17:56 19:00 Temp 98.6 98.2 98.6 98.2 Pulse 80 82 Resp 18 18 B/P (MAP) 110/55 (73) 120/57 (78) Pulse Ox 92 95 O2 Delivery Room Air Room Air clearing for prev shift Room Air 03/02/17 03/02/17 03/03/17 03/03/17 20:00 23:00 03:00 07:00 Temp 99.5 99.3 97.9 99.5 99.3 97.9 Pulse 82 78 54 Resp 14 22 18 B/P (MAP) 133/57 (82) 123/58 (79) 121/51 (74) Pulse Ox 100 93 96 O2 Delivery Room Air Room Air Room Air Room Air 03/03/17 03/03/17 03/03/17 03/03/17 10:57 11:13 13:40 13:40 Temp 97.9 98.1 97.9 98.1 Pulse 70 72 98 Resp 18 20 35 B/P (MAP) 128/89 (102) 128/72 149/61 Pulse Ox 94 94 95 O2 Delivery Room Air Room Air Simple Mask Mask O2 Flow Rate 10 10 03/03/17 03/03/17 03/03/17 13:55 14:10 14:13 Pulse 88 90 Resp 20 18 21 B/P (MAP) 132/77 143/69 Pulse Ox 96 95 O2 Delivery Simple Mask Simple Mask O2 Flow Rate 10 10 Intake and Output 03/03/17 03/03/17 03/04/17 15:00 23:00 07:00 Intake Total 950 ml Output Total 685 ml Balance 265 ml ROGELIO WEBBER APRN Mar 03, 2017 14:30
[2017-03-03] MEDS: POTASSIUM CL 20MEQ D5-0.45NACL 1,000 ML IV SCH (15:40)
[2017-03-03] MEDS: SIMVASTATIN 10 MG TABLET PO SCH (21:00)
[2017-03-03] MEDS ORDERED: INSULIN ASPART 300 UNITS/3 ML INSULN.PEN SQ ONE (23:00)
[2017-03-04] MEDS: IV RINGERS,LACTATED 1000ML 1,000 ML IV SCH ×2 (01:20→14:40)
[2017-03-04 03:00] VITALS: BP 120/40
[2017-03-04] MEDS: POTASSIUM CL 20MEQ D5-0.45NACL 1,000 ML IV SCH ×2 (05:36→14:20)
[2017-03-04 07:00] VITALS: BP 102/49
[2017-03-04] MEDS: INSULIN ASPART 300 UNITS/3 ML INSULN.PEN SQ SCH ×3 (08:00→17:00)
--- NOTE | 2017-03-04 10:54 | PDOC ---
PROGRESS NOTES Subjective Subjective Pt awake and agitated. [facility] report he pulled out his IV and has been attempting to pull out his vanegas. Pt mumbles in communication which is his baseline secondary to his Alzheimer dementia. Objective Objective Pt awake and alert. Agitated. VSS. Afebrile. Lungs CTA bilat. Resp even and unalbored. Pt on 2L of O2 per NC. Heart with RRR. No murmurs. No pedal edema. Right hip dressing CDI. Pt with Vanegas, actively draining straw colored urine. Abdomen soft, nondistended, and nontender with palpation. Skin WDP. Vital Signs Date Time Temp Pulse Resp B/P (MAP) Pulse Ox O2 Delivery O2 Flow Rate FiO2 03/04/17 08:00 Room Air 03/04/17 07:00 97.5 64 18 102/49 (66) 94 2.0 97.5 Assessment Assessment Problems Medical Problems: (1) Fracture of femoral neck, right Status: Acute Plan Plan of Care Right femoral hip fx - Right hip hemiarthroplasty on 03/03 - Hgb 13.3 on 03/03 -CBC today Alzheimer dementia with behavioral outbursts - Pt on Namenda, Aricept and Depakote - Increased anxiety and aggression this am. Ordered Xanax 0.5mg tid prn. - CMP today DM -Pt on Novolog sliding scale Hypothyroidism -Pt on Levothyroxine Comment Review of Relevant I have reviewed the following items sofie (where applicable) has been applied. Labs Laboratory Tests Test 03/02/17 12:05 03/02/17 16:34 03/02/17 21:04 03/03/17 05:25 Glucose (Fingerstick) 191 mg/dL (70-99) 195 mg/dL (70-99) 179 mg/dL (70-99) White Blood Count 10.0 x10^3/uL (4.0-11.0) Red Blood Count 4.54 x10^6/uL (4.30-5.70) Hemoglobin 13.3 g/dL (13.0-17.5) Hematocrit 39.7 % (39.0-53.0) Mean Corpuscular Volume 87 fL (79-100) Mean Corpuscular Hemoglobin 29 pg (25-35) Mean Corpuscular Hemoglobin Concent 33 g/dL (31-37) Red Cell Distribution Width 14.7 % (11.5-14.5) Platelet Count 168 x10^3/uL (140-400) Neutrophils (%) (Auto) 71 % (31-73) Lymphocytes (%) (Auto) 18 % (24-48) Monocytes (%) (Auto) 8 % (0-9) Eosinophils (%) (Auto) 3 % (0-3) Basophils (%) (Auto) 1 % (0-3) Neutrophils # (Auto) 7.1 x10^3uL (1.8-7.7) Lymphocytes # (Auto) 1.8 x10^3/uL (1.0-4.8) Monocytes # (Auto) 0.8 x10^3/uL (0.0-1.1) Eosinophils # (Auto) 0.3 x10^3/uL (0.0-0.7) Basophils # (Auto) 0.1 x10^3/uL (0.0-0.2) Sodium Level 137 mmol/L (136-145) Potassium Level 4.2 mmol/L (3.5-5.1) Chloride Level 104 mmol/L (98-107) Carbon Dioxide Level 26 mmol/L (21-32) Anion Gap 7 (6-14) Blood Urea Nitrogen 13 mg/dL (8-26) Creatinine 1.5 mg/dL (0.7-1.3) Estimated GFR (Cockcroft-Gault) 44.3 Glucose Level 213 mg/dL (70-99) Calcium Level 8.4 mg/dL (8.5-10.1) Test 03/03/17 07:27 03/03/17 10:46 03/03/17 16:07 03/03/17 21:02 Glucose (Fingerstick) 198 mg/dL (70-99) 200 mg/dL (70-99) 273 mg/dL (70-99) 309 mg/dL (70-99) Laboratory Tests Test 03/03/17 16:07 03/03/17 21:02 Glucose (Fingerstick) 273 mg/dL (70-99) 309 mg/dL (70-99) Medications Current Medications Fentanyl Citrate (Fentanyl 2ml Vial) 25 mcg PRN Q15MIN PRN IV PAIN GREATER THAN 3/10 Last administered on 03/02/17t 00:49; Start 10/14/17 at 23:30; Stop 03/02/17 at 23:29; Status DC Ondansetron HCl (Zofran) 4 mg PRN Q8HRS PRN IV NAUSEA/VOMITING; Start at 02:00; Stop 03/03/17 at 01:59; Status DC Morphine Sulfate 4 mg PRN Q2HR PRN IV SEVERE PAIN Last administered on 17:26; Start 03/02/17 at 02:00; Stop 03/03/17 at 01:59; Status DC Acetaminophen (Tylenol) 650 mg PRN Q4HRS PRN PO FEVER; Start 03/02/17 at 02:00 ; Stop 03/03/17 at 01:59; Status DC Insulin Aspart (NovoLOG) 0-5 UNITS TIDWMEALS SQ Last administered on 18:24; Start 03/02/17 at 08:00 Dextrose (Dextrose 50%-Water Syringe) 12.5 gm PRN Q15MIN PRN IV SEE COMMENTS; Start 03/02/17 at 02:30 Acetaminophen (Tylenol) 500 mg AFTRNOON PO ; Start 03/02/17 at 13:00 Cyanocobalamin (Vitamin B-12) 500 mcg DAILY PO ; Start 03/02/17 at 09:00 Donepezil HCl (Aricept) 10 mg DAILY PO ; Start 03/02/17 at 09:00 Levothyroxine Sodium (Synthroid) 50 mcg DAILY07 PO ; Start 03/02/17 at 09:00 Memantine (Namenda) 10 mg AFTRNOON PO ; Start 03/02/17 at 13:00 Ondansetron HCl (Zofran Odt) 4 mg PRN Q6HRS PRN PO NAUSEA/VOMITING; Start at 09:00 Potassium Chloride (KCl Oral Soln) 7.5 meq DAILY PO ; Start 03/02/17 at 09:00 Simvastatin (Zocor) 5 mg QHS PO ; Start 03/02/17 at 21:00 Valproic Acid (Depakene) 375 mg BID PO ; Start 03/02/17 at 09:00 Potassium Chloride/Dextrose/ Sod Cl 1,000 ml @ 75 mls/hr [id number] IV Last administered on 03/04/17 05:36; Start 03/02/17 at 09:00 Cefazolin Sodium/ Dextrose 50 ml @ 100 mls/hr 1X ONCE IV Last administered on 03/03/17 11:50; Start 03/03/17 at 07:45; Stop 03/03/17 at 08:14; Status DC Cefazolin Sodium/ Dextrose 50 ml @ 100 mls/hr Q6H IV Last administered on 05:35; Start 03/03/17 at 18:00; Stop 03/04/17 at 06:29; Status DC Enoxaparin Sodium (Lovenox 40mg Syringe) 40 mg Q24H SQ ; Start 03/04/17 at 08: 00 Morphine Sulfate 5 mg/Ketorolac Tromethamine 30 mg/Ropivacaine 60 ml/ Epinephrine HCl 0.5 mg/Sodium Chloride 100 ml @ 100 mls/hr 1X PERIOP ONCE INT ART Last administered on 03/03/17 12:13; Start 03/03/17 at 11:30; Stop at 12:29; Status DC Fentanyl Citrate (Fentanyl 2ml Vial) 100 mcg STK-MED ONCE .ROUTE ; Start at 11:35; Stop 03/03/17 at 11:36; Status DC Propofol 20 ml @ As Directed STK-MED ONCE IV ; Start 03/03/17 at 11:38; Stop 03/03/17 at 11:39; Status DC Dexamethasone Sodium Phosphate (Decadron) 20 mg STK-MED ONCE .ROUTE ; Start at 11:38; Stop 03/03/17 at 11:39; Status DC Famotidine (Pepcid) 20 mg STK-MED ONCE .ROUTE ; Start 03/03/17 at 11:38; Stop 03/03/17 at 11:39; Status DC Lidocaine HCl (Lidocaine Pf 2% Vial) 5 ml STK-MED ONCE .ROUTE ; Start 03/03/17 at 11:38; Stop 03/03/17 at 11:39; Status DC Ondansetron HCl (Zofran) 4 mg STK-MED ONCE .ROUTE ; Start 03/03/17 at 11:38; Stop 03/03/17 at 11:39; Status DC Ringer's Solution 1,000 ml @ 75 mls/hr [id number] IV Last administered on 11:15; Start 03/03/17 at 12:00 Glycopyrrolate (Robinul) 1 mg STK-MED ONCE .ROUTE ; Start 03/03/17 at 11:59; Stop 03/03/17 at 12:00; Status DC Neostigmine Methylsulfate 5 mg STK-MED ONCE .ROUTE ; Start 03/03/17 at 12:24; Stop 03/03/17 at 12:25; Status DC Rocuronium [place]hertz (Zemuron) 100 mg STK-MED ONCE .ROUTE ; Start 03/03/17 at 12: 27; Stop 03/03/17 at 12:28; Status DC Desflurane (Suprane) 90 ml STK-MED ONCE IH ; Start 03/03/17 at 13:19; Stop at 13:20; Status DC Fentanyl Citrate (Fentanyl 2ml Vial) 25 mcg PRN Q5MIN PRN IV MILD PAIN; Start 03/03/17 at 14:15; Stop 03/04/17 at 14:14 Fentanyl Citrate (Fentanyl 2ml Vial) 50 mcg PRN Q5MIN PRN IV MODERATE PAIN; Start 03/03/17 at 14:15; Stop 03/04/17 at 14:14 Morphine Sulfate 1 mg PRN Q10MIN PRN IV SEVERE PAIN Last administered on 14:49; Start 03/03/17 at 14:15; Stop 03/04/17 at 14:14 Ringer's Solution 1,000 ml @ 30 mls/hr Q24H IV ; Start 03/03/17 at 14:07; Stop 03/04/17 at 02:06; Status DC Lidocaine HCl (Xylocaine-Mpf 1% Vial) 2 ml 1X PRN PRN ID IV START; Start 03/03 at 14:15; Stop 03/04/17 at 14:14 Hydromorphone HCl (Dilaudid) 0.5 mg PRN Q10MIN PRN IV SEV PAIN, Second choice; Start 03/03/17 at 14:15; Stop 03/04/17 at 14:14 Prochlorperazine Edisylate (Compazine) 5 mg PACU PRN PRN IV NAUSEA, MRX1 Last administered on 03/03/17t 14:13; Start 03/03/17 at 14:15; Stop 03/04/17 at 14 :14 Insulin Aspart (NovoLOG) 3 units 1X ONCE SQ Last administered on 03/03/17 22 :31; Start 03/03/17 at 23:00; Stop 03/03/17 at 23:01; Status DC Alprazolam (Xanax) 0.5 mg PRN Q8HRS PRN PO ANXIETY / AGITATION; Start at 10:30 Active Scripts Active Reported Ipratropium Schertz 0.2 Mg/1 Ml Solution 1 Vial NEB PRN Q6HRS PRN Claritin (Loratadine) 10 Mg Tablet 1 Tab PO DAILY Aricept (Donepezil Hcl) 10 Mg Tablet 1 Tab PO DAILY Lasix (Furosemide) 20 Mg Tablet 1.5 Tab PO DAILY Levemir (Insulin Detemir) 100 Unit/1 Ml Vial 12 Unit SQ DAILY08 Levothyroxine Sodium 50 Mcg Tablet 1 Tab PO DAILY Namenda (Memantine Hcl) 10 Mg Tablet 10 Mg PO AFTRNOON Zofran Odt (Ondansetron) 4 Mg Tab.rapdis 1 Tab SL Q6HRS PRN Potassium Chloride Oral Liquid (Potassium Chloride) 20 Meq/15 Ml Liquid 7.5 Meq PO DAILY Simvastatin 10 Mg Tablet 0.5 Tab PO QHS Acetaminophen 500 Mg Tablet 500 Mg PO AFTRNOON Levemir (Insulin Detemir) 100 Unit/1 Ml Vial 14 Unit SQ HS Valproic Acid (Valproate Sodium) 250 Mg/5 Ml Solution 375 Mg PO BID Melatonin 3 Mg Tablet 1 Tab PO QHS Vitamin B-12 (Cyanocobalamin (Vitamin B-12)) 1,000 Mcg Tablet 500 Mcg PO DAILY Vitals/I & O Vital Sign - Last 24 Hours 03/03/17 03/03/17 03/03/17 03/03/17 10:57 11:13 13:40 13:40 Temp 97.9 98.1 97.9 98.1 Pulse 70 72 98 Resp 18 20 35 B/P (MAP) 128/89 (102) 128/72 149/61 Pulse Ox 94 94 95 O2 Delivery Room Air Room Air Simple Mask Mask O2 Flow Rate 10 10 03/03/17 03/03/17 03/03/17 03/03/17 13:55 14:10 14:13 14:25 Temp 98.2 98.2 Pulse 88 90 95 Resp 20 18 21 17 B/P (MAP) 132/77 143/69 134/67 Pulse Ox 96 95 98 O2 Delivery Simple Mask Simple Mask Simple Mask O2 Flow Rate 10 10 10 03/03/17 03/03/17 03/03/17 03/03/17 14:40 14:49 14:55 15:15 Temp 98.2 98.9 98.2 98.9 Pulse 98 96 95 Resp 30 17 18 18 B/P (MAP) 126/63 130/68 142/65 (90) Pulse Ox 96 96 92 O2 Delivery Nasal Cannula Room Air Nasal Cannula Nasal Cannula O2 Flow Rate 2 2 2.0 03/03/17 03/03/17 03/03/17 03/03/17 15:30 15:41 15:45 16:00 Pulse 95 92 91 Resp 18 18 18 B/P (MAP) 115/55 (75) 98/52 (67) 94/51 (65) Pulse Ox 96 96 96 96 O2 Delivery Nasal Cannula Nasal Cannula Nasal Cannula Nasal Cannula O2 Flow Rate 2.0 2.0 2.0 03/03/17 03/03/17 03/03/17 03/03/17 16:30 17:00 18:00 20:00 Pulse 89 85 93 Resp 18 18 18 B/P (MAP) 101/47 (65) 84/49 (61) 114/62 (79) Pulse Ox 97 98 97 O2 Delivery Nasal Cannula Room Air Nasal Cannula Room Air O2 Flow Rate 2.0 2.0 2.0 03/03/17 03/04/17 03/04/17 03/04/17 23:39 03:00 07:00 08:00 Temp 97.7 97.7 97.5 97.7 97.7 97.5 Pulse 93 63 64 Resp 18 18 18 B/P (MAP) 117/53 (74) 120/40 (66) 102/49 (66) Pulse Ox 96 93 94 O2 Delivery Nasal Cannula Nasal Cannula Room Air O2 Flow Rate 2.0 2.0 ROGELIO WEBBER AUTHOR'S AGENT Mar 04, 2017 10:54
[2017-03-04 11:00] VITALS: BP 90/70
[2017-03-04] MEDS: ALPRAZolam 0.5 MG TABLET PO PRN ×2 (11:08→19:31)
[2017-03-04] MEDS: CYANOCOBALAMIN (VITAMIN B-12) 1,000 MCG TABLET. PO SCH (11:08)
[2017-03-04] MEDS: DONEPEZIL HCL 10 MG TABLET. PO SCH (11:10)
[2017-03-04] MEDS: LEVOTHYROXINE 50 MCG TABLET PO SCH (11:10)
[2017-03-04] MEDS: VALPROIC ACID (AS SODIUM SALT) 250 MG/5 ML SOLUTION. PO SCH ×2 (11:11→20:28)
[2017-03-04] MEDS: ENOXAPARIN 40 MG/0.4 ML SYRINGE. SQ SCH (11:11)
[2017-03-04] MEDS: POTASSIUM CHLORIDE 20 MEQ/15 ML ORAL LIQUID. PO SCH (11:14)
[2017-03-04 12:01] LABS: BASO % 0 % (0-3); EOS % 0 % (0-3); HEMATOCRIT 37.7 % (39.0-53.0); HEMOGLOBIN 12.1 g/dL (13.0-17.5); LYMPH # 2.1 x10^3/uL (1.0-4.8); LYMPH % 16 % (24-48); MEAN CORPUSCULAR HEMOGLOBIN 28 pg (25-35); MEAN CORPUSCULAR HGB CONC 32 g/dL (31-37); MEAN CORPUSCULAR VOLUME 88 fL (79-100); MONO % 8 % (0-9); NEUT % 76 % (31-73); PLATELET COUNT 188 x10^3/uL (140-400); RED BLOOD COUNT 4.27 x10^6/uL (4.30-5.70); RED CELL DISTRIBUTION WIDTH 14.3 % (11.5-14.5); WHITE BLOOD COUNT 13.4 x10^3/uL (4.0-11.0)
[2017-03-04 12:26] LABS: ALBUMIN 2.7 g/dL (3.4-5.0); ALBUMIN/GLOBULIN RATIO 0.7 (1.0-1.7); CALCIUM 8.8 mg/dL (8.5-10.1); CREATININE 1.5 mg/dL (0.7-1.3); GFR 44.3; POTASSIUM 4.1 mmol/L (3.5-5.1); TOTAL BILIRUBIN 0.5 mg/dL (0.2-1.0); TOTAL PROTEIN 6.4 g/dL (6.4-8.2)
--- NOTE | 2017-03-04 12:43 | PDOC ---
ORTHO PROGRESS NOTES Subjective No acute events. He does not verbalize any complaints Vitals Vital Signs Date Time Temp Pulse Resp B/P (MAP) Pulse Ox O2 Delivery O2 Flow Rate FiO2 03/04/17 08:00 Room Air 03/04/17 07:00 97.5 64 18 102/49 (66) 94 2.0 97.5 Labs Laboratory Tests Test 03/02/17 16:34 03/02/17 21:04 03/03/17 05:25 03/03/17 07:27 Glucose (Fingerstick) 195 mg/dL (70-99) 179 mg/dL (70-99) 198 mg/dL (70-99) White Blood Count 10.0 x10^3/uL (4.0-11.0) Red Blood Count 4.54 x10^6/uL (4.30-5.70) Hemoglobin 13.3 g/dL (13.0-17.5) Hematocrit 39.7 % (39.0-53.0) Mean Corpuscular Volume 87 fL (79-100) Mean Corpuscular Hemoglobin 29 pg (25-35) Mean Corpuscular Hemoglobin Concent 33 g/dL (31-37) Red Cell Distribution Width 14.7 % (11.5-14.5) Platelet Count 168 x10^3/uL (140-400) Neutrophils (%) (Auto) 71 % (31-73) Lymphocytes (%) (Auto) 18 % (24-48) Monocytes (%) (Auto) 8 % (0-9) Eosinophils (%) (Auto) 3 % (0-3) Basophils (%) (Auto) 1 % (0-3) Neutrophils # (Auto) 7.1 x10^3uL (1.8-7.7) Lymphocytes # (Auto) 1.8 x10^3/uL (1.0-4.8) Monocytes # (Auto) 0.8 x10^3/uL (0.0-1.1) Eosinophils # (Auto) 0.3 x10^3/uL (0.0-0.7) Basophils # (Auto) 0.1 x10^3/uL (0.0-0.2) Sodium Level 137 mmol/L (136-145) Potassium Level 4.2 mmol/L (3.5-5.1) Chloride Level 104 mmol/L (98-107) Carbon Dioxide Level 26 mmol/L (21-32) Anion Gap 7 (6-14) Blood Urea Nitrogen 13 mg/dL (8-26) Creatinine 1.5 mg/dL (0.7-1.3) Estimated GFR (Cockcroft-Gault) 44.3 Glucose Level 213 mg/dL (70-99) Calcium Level 8.4 mg/dL (8.5-10.1) Test 03/03/17 10:46 03/03/17 16:07 03/03/17 21:02 03/04/17 11:40 Glucose (Fingerstick) 200 mg/dL (70-99) 273 mg/dL (70-99) 309 mg/dL (70-99) White Blood Count 13.4 x10^3/uL (4.0-11.0) Red Blood Count 4.27 x10^6/uL (4.30-5.70) Hemoglobin 12.1 g/dL (13.0-17.5) Hematocrit 37.7 % (39.0-53.0) Mean Corpuscular Volume 88 fL (79-100) Mean Corpuscular Hemoglobin 28 pg (25-35) Mean Corpuscular Hemoglobin Concent 32 g/dL (31-37) Red Cell Distribution Width 14.3 % (11.5-14.5) Platelet Count 188 x10^3/uL (140-400) Neutrophils (%) (Auto) 76 % (31-73) Lymphocytes (%) (Auto) 16 % (24-48) Monocytes (%) (Auto) 8 % (0-9) Eosinophils (%) (Auto) 0 % (0-3) Basophils (%) (Auto) 0 % (0-3) Neutrophils # (Auto) 10.1 x10^3uL (1.8-7.7) Lymphocytes # (Auto) 2.1 x10^3/uL (1.0-4.8) Monocytes # (Auto) 1.0 x10^3/uL (0.0-1.1) Eosinophils # (Auto) 0.0 x10^3/uL (0.0-0.7) Basophils # (Auto) 0.0 x10^3/uL (0.0-0.2) Sodium Level 137 mmol/L (136-145) Potassium Level 4.1 mmol/L (3.5-5.1) Chloride Level 103 mmol/L (98-107) Carbon Dioxide Level 26 mmol/L (21-32) Anion Gap 8 (6-14) Blood Urea Nitrogen 19 mg/dL (8-26) Creatinine 1.5 mg/dL (0.7-1.3) Estimated GFR (Cockcroft-Gault) 44.3 BUN/Creatinine Ratio 13 (6-20) Glucose Level 148 mg/dL (70-99) Calcium Level 8.8 mg/dL (8.5-10.1) Total Bilirubin 0.5 mg/dL (0.2-1.0) Aspartate Amino Transf (AST/SGOT) 28 U/L (15-37) Alanine Aminotransferase (ALT/SGPT) 16 U/L (16-63) Alkaline Phosphatase 62 U/L (46-116) Total Protein 6.4 g/dL (6.4-8.2) Albumin 2.7 g/dL (3.4-5.0) Albumin/Globulin Ratio 0.7 (1.0-1.7) Laboratory Tests Test 03/03/17 16:07 03/03/17 21:02 03/04/17 11:40 Glucose (Fingerstick) 273 mg/dL (70-99) 309 mg/dL (70-99) White Blood Count 13.4 x10^3/uL (4.0-11.0) Red Blood Count 4.27 x10^6/uL (4.30-5.70) Hemoglobin 12.1 g/dL (13.0-17.5) Hematocrit 37.7 % (39.0-53.0) Mean Corpuscular Volume 88 fL (79-100) Mean Corpuscular Hemoglobin 28 pg (25-35) Mean Corpuscular Hemoglobin Concent 32 g/dL (31-37) Red Cell Distribution Width 14.3 % (11.5-14.5) Platelet Count 188 x10^3/uL (140-400) Neutrophils (%) (Auto) 76 % (31-73) Lymphocytes (%) (Auto) 16 % (24-48) Monocytes (%) (Auto) 8 % (0-9) Eosinophils (%) (Auto) 0 % (0-3) Basophils (%) (Auto) 0 % (0-3) Neutrophils # (Auto) 10.1 x10^3uL (1.8-7.7) Lymphocytes # (Auto) 2.1 x10^3/uL (1.0-4.8) Monocytes # (Auto) 1.0 x10^3/uL (0.0-1.1) Eosinophils # (Auto) 0.0 x10^3/uL (0.0-0.7) Basophils # (Auto) 0.0 x10^3/uL (0.0-0.2) Sodium Level 137 mmol/L (136-145) Potassium Level 4.1 mmol/L (3.5-5.1) Chloride Level 103 mmol/L (98-107) Carbon Dioxide Level 26 mmol/L (21-32) Anion Gap 8 (6-14) Blood Urea Nitrogen 19 mg/dL (8-26) Creatinine 1.5 mg/dL (0.7-1.3) Estimated GFR (Cockcroft-Gault) 44.3 BUN/Creatinine Ratio 13 (6-20) Glucose Level 148 mg/dL (70-99) Calcium Level 8.8 mg/dL (8.5-10.1) Total Bilirubin 0.5 mg/dL (0.2-1.0) Aspartate Amino Transf (AST/SGOT) 28 U/L (15-37) Alanine Aminotransferase (ALT/SGPT) 16 U/L (16-63) Alkaline Phosphatase 62 U/L (46-116) Total Protein 6.4 g/dL (6.4-8.2) Albumin 2.7 g/dL (3.4-5.0) Albumin/Globulin Ratio 0.7 (1.0-1.7) Notes He is awake. He responds to voice. He has minutes in place. His dressing is clean and dry. Toes are warm distally. Assessment and Plan I discussed anticoag with family, we will do Lovenox 4 weeks. He can weight- bear as tolerated. No recommendations from orthopedics today otherwise YENNY SARAVIA II, MD Mar 04, 2017 12:43
[2017-03-04] MEDS: MEMANTINE 10 MG TABLET. PO SCH (14:56)
[2017-03-04] MEDS: ACETAMINOPHEN 500 MG TABLET PO SCH (14:56)
[2017-03-04 15:00] VITALS: BP 98/58
[2017-03-04 19:00] VITALS: BP 108/55
[2017-03-04] MEDS: SIMVASTATIN 10 MG TABLET PO SCH (20:28)
[2017-03-04] MEDS: HALOPERIDOL LACTATE 5 MG/ML VIAL. IM PRN (22:08)
[2017-03-04 23:00] VITALS: BP 127/59
[2017-03-05] MEDS: HALOPERIDOL LACTATE 5 MG/ML VIAL. IM PRN ×2 (02:13→07:31)
[2017-03-05 03:00] VITALS: BP 139/57
[2017-03-05] MEDS: POTASSIUM CL 20MEQ D5-0.45NACL 1,000 ML IV SCH ×2 (04:18→17:00)
[2017-03-05] MEDS: LEVOTHYROXINE 50 MCG TABLET PO SCH (06:36)
[2017-03-05 07:00] VITALS: BP 119/64
[2017-03-05] MEDS: CYANOCOBALAMIN (VITAMIN B-12) 1,000 MCG TABLET. PO SCH ×2 (09:00→10:00)
[2017-03-05] MEDS: POTASSIUM CHLORIDE 20 MEQ/15 ML ORAL LIQUID. PO SCH ×2 (09:00→09:59)
[2017-03-05] MEDS: VALPROIC ACID (AS SODIUM SALT) 250 MG/5 ML SOLUTION. PO SCH ×3 (09:00→22:26)
[2017-03-05] MEDS: DONEPEZIL HCL 10 MG TABLET. PO SCH ×2 (09:00→09:59)
[2017-03-05] MEDS: ENOXAPARIN 40 MG/0.4 ML SYRINGE. SQ SCH (09:59)
[2017-03-05] MEDS: INSULIN ASPART 300 UNITS/3 ML INSULN.PEN SQ SCH ×3 (10:02→17:00)
[2017-03-05 11:00] VITALS: BP 135/65
[2017-03-05] MEDS: MEMANTINE 10 MG TABLET. PO SCH (13:00)
[2017-03-05] MEDS: ACETAMINOPHEN 500 MG TABLET PO SCH (13:00)
--- NOTE | 2017-03-05 14:23 | PDOC ---
DIANANONI MASCORROAURORA Zhang MOLDER OPERATOR 03/05/17 1423: ORTHO PROGRESS NOTES Subjective Patient confused and combative. Nursing reports that he does not follow commands well, refuses care, spits out meds, combative when trying to care for him. Post-op Day: 2 (Right hip cira) Vitals Vital Signs Date Time Temp Pulse Resp B/P (MAP) Pulse Ox O2 Delivery O2 Flow Rate FiO2 03/05/17 11:00 98.7 74 18 135/65 (88) 92 Room Air 98.7 03/04/17 15:00 2.0 Labs Laboratory Tests Test 03/03/17 16:07 03/03/17 21:02 03/04/17 11:40 03/04/17 16:23 Glucose (Fingerstick) 273 mg/dL (70-99) 309 mg/dL (70-99) 160 mg/dL (70-99) White Blood Count 13.4 x10^3/uL (4.0-11.0) Red Blood Count 4.27 x10^6/uL (4.30-5.70) Hemoglobin 12.1 g/dL (13.0-17.5) Hematocrit 37.7 % (39.0-53.0) Mean Corpuscular Volume 88 fL (79-100) Mean Corpuscular Hemoglobin 28 pg (25-35) Mean Corpuscular Hemoglobin Concent 32 g/dL (31-37) Red Cell Distribution Width 14.3 % (11.5-14.5) Platelet Count 188 x10^3/uL (140-400) Neutrophils (%) (Auto) 76 % (31-73) Lymphocytes (%) (Auto) 16 % (24-48) Monocytes (%) (Auto) 8 % (0-9) Eosinophils (%) (Auto) 0 % (0-3) Basophils (%) (Auto) 0 % (0-3) Neutrophils # (Auto) 10.1 x10^3uL (1.8-7.7) Lymphocytes # (Auto) 2.1 x10^3/uL (1.0-4.8) Monocytes # (Auto) 1.0 x10^3/uL (0.0-1.1) Eosinophils # (Auto) 0.0 x10^3/uL (0.0-0.7) Basophils # (Auto) 0.0 x10^3/uL (0.0-0.2) Sodium Level 137 mmol/L (136-145) Potassium Level 4.1 mmol/L (3.5-5.1) Chloride Level 103 mmol/L (98-107) Carbon Dioxide Level 26 mmol/L (21-32) Anion Gap 8 (6-14) Blood Urea Nitrogen 19 mg/dL (8-26) Creatinine 1.5 mg/dL (0.7-1.3) Estimated GFR (Cockcroft-Gault) 44.3 BUN/Creatinine Ratio 13 (6-20) Glucose Level 148 mg/dL (70-99) Calcium Level 8.8 mg/dL (8.5-10.1) Total Bilirubin 0.5 mg/dL (0.2-1.0) Aspartate Amino Transf (AST/SGOT) 28 U/L (15-37) Alanine Aminotransferase (ALT/SGPT) 16 U/L (16-63) Alkaline Phosphatase 62 U/L (46-116) Total Protein 6.4 g/dL (6.4-8.2) Albumin 2.7 g/dL (3.4-5.0) Albumin/Globulin Ratio 0.7 (1.0-1.7) Test 03/04/17 21:13 03/05/17 07:51 03/05/17 11:00 Glucose (Fingerstick) 139 mg/dL (70-99) 222 mg/dL (70-99) 221 mg/dL (70-99) Laboratory Tests Test 03/04/17 16:23 03/04/17 21:13 03/05/17 07:51 03/05/17 11:00 Glucose (Fingerstick) 160 mg/dL (70-99) 139 mg/dL (70-99) 222 mg/dL (70-99) 221 mg/dL (70-99) Notes Patient is awake and alert, but confused. incision covered with dressing, intact and dry. skin warm and pink. good cap refill. PPP. Problems: (1) Fracture of femoral neck, right Assessment and Plan Ok to DC from ortho standpoint when medical stable to transfer back to care facility. Follow up with ortho two weeks post operative YENNY SARAVIA II, MD 03/05/172023: Problem Qualifiers (1) Fracture of femoral neck, right: Encounter type: subsequent encounter Fracture type: closed Fracture healing : with routine healing Qualified Codes: S72.001D - Fracture of unspecified part of neck of right femur, subsequent encounter for closed fracture with routine healing YUMIKO KEMP APRN Mar 05, 2017 14:23 YENNY SARAVIA II, MD Mar 05, 2017 20:24
--- NOTE | 2017-03-05 14:31 | PATHOLOGY ---
PATHOLOGY REPORT * * * * * * * * FINAL DIAGNOSIS: Femoral head, right hip hemiarthroplasty: - Focal fragmentation of bony trabeculae and recent intertrabecular hemorrhage consistent with fracture. - Degenerative arthritis. COMMENT: There is no evidence of malignancy. (JPM:db; 03/05/2017) REPORT ELECTRONICALLY SIGNED BY: Art Miguel M.D. DATE/TIME: 03/05/2017 14:30 * * * * * * * * GROSS PATHOLOGY: Received in formalin labeled "Adarsh Stewart, right hip bone and tissue," is a femoral head measuring 5.0 x 5.0 x 3.9 cm in greatest dimensions. The articular surface is smooth to granular and pale castro to dark brown in appearance. Sectioning reveals a yellow-castro to pink-castro marrow space, with the distal most aspect hemorrhagic in appearance, consistent with a fracture site. Jewel Inserter tissue from the fracture site is submitted in cassettes A1 and A2, following decalcification. ([facility]; 03/04/2017) INITIAL CPT CODE(S): A; 22806, 96268 Professional services performed [place] [address] Technical services performed by [facility] at [address] [place] [address]. SPECIMEN(S) RECEIVED: A.Right hip bone and tissue CLINICAL HISTORY: Right hip fracture PATIENT: ADARSH STEWART /AGE: 12 1930 (Age: 86) PATIENT #: [id number] ALT CASE #: SPECIMEN COLLECTION DATE: 03/03/2017 SPECIMEN RECEIVED DATE: 03/03/2017 [facility] - [address] [place] [address] - PHONE: [phone] * * * END OF REPORT * * *
[2017-03-05 15:00] VITALS: BP 135/69
--- NOTE | 2017-03-05 17:22 | PDOC ---
GENERAL General: vss with tmax 99.7. chest clear, heart regular, abdomen benign, and non verbal this am. hip wound looks ok. vanegas in place. dc planning underway. will likely need snu. Problems: VITAL SIGNS Vital Signs: Vital Signs Date Time Temp Pulse Resp B/P (MAP) Pulse Ox O2 Delivery O2 Flow Rate FiO2 03/05/17 15:00 97.4 79 18 135/69 (91) 96 Room Air 97.4 03/04/17 15:00 2.0 I & O I & O Intake and Output 03/06/17 07:00 Intake Total 120 ml Output Total 300 ml Balance -180 ml Intake Oral 120 ml Output Urine Total 300 ml ALLERGIES Allergies: Allergies Coded Allergies Type Severity Reaction Last Updated Verified No Known Drug Allergies 03/03/17 No MEDS Medications: Current Medications Medications (Trade) Dose Ordered Sig/Jennifer Start Time Stop Time Status Last Admin Dose Admin Acetaminophen (Tylenol) 500 mg AFTRNOON 03/02/17 13:00 03/04/17 14:56 500 MG Alprazolam (Xanax) 0.5 mg PRN Q8HRS PRN 03/04/17 10:30 03/04/17 19:31 0.5 MG Cefazolin Sodium/ Dextrose 50 ml @ 100 mls/hr Q6H 03/03/17 18:00 03/04/17 06:29 DC 03/04/17 05:35 100 MLS/HR Cyanocobalamin (Vitamin B-12) 500 mcg DAILY 03/02/17 09:00 03/04/17 11:08 500 MCG Desflurane (Suprane) 90 ml STK-MED ONCE 03/03/17 13:19 03/03/17 13:20 DC Dexamethasone Sodium Phosphate (Decadron) 20 mg STK-MED ONCE 03/03/17 11:38 03/03/17 11:39 DC Dextrose (Dextrose 50%-Water Syringe) 12.5 gm PRN Q15MIN PRN 03/02/17 02:30 Donepezil HCl (Aricept) 10 mg DAILY 03/02/17 09:00 03/04/17 11:10 10 MG Enoxaparin Sodium (Lovenox 40mg Syringe) 40 mg Q24H 03/04/17 08:00 03/05/17 09:59 40 MG Famotidine (Pepcid) 20 mg STK-MED ONCE 03/03/17 11:38 03/03/17 11:39 DC Fentanyl Citrate (Fentanyl 2ml Vial) 50 mcg PRN Q5MIN PRN 03/03/17 14:15 03/04/17 14:14 DC Glycopyrrolate (Robinul) 1 mg STK-MED ONCE 03/03/17 11:59 03/03/17 12:00 DC Haloperidol Lactate (Haldol) 1 mg PRN Q4HRS PRN 03/04/17 20:00 03/05/17 07:31 1 MG Hydromorphone HCl (Dilaudid) 0.5 mg PRN Q10MIN PRN 03/03/17 14:15 03/04/17 14:14 DC Insulin Aspart (NovoLOG) 3 units 1X ONCE 03/03/17 23:00 03/03/17 23:01 DC 03/03/17 22:31 3 UNITS Levothyroxine Sodium (Synthroid) 50 mcg DAILY07 03/02/17 09:00 03/04/17 11:10 50 MCG Lidocaine HCl (Lidocaine Pf 2% Vial) 5 ml STK-MED ONCE 03/03/17 11:38 03/03/17 11:39 DC Lidocaine HCl (Xylocaine-Mpf 1% Vial) 2 ml 1X PRN PRN 03/03/17 14:15 03/04/17 14:14 DC Memantine (Namenda) 10 mg AFTRNOON 03/02/17 13:00 03/04/17 14:56 10 MG Morphine Sulfate 1 mg PRN Q10MIN PRN 03/03/17 14:15 03/04/17 14:14 DC 03/03/17 14:49 1 MG Morphine Sulfate 5 mg/Ketorolac Tromethamine 30 mg/Ropivacaine 60 ml/Epinephrine HCl 0.5 mg/Sodium Chloride 100 ml @ 100 mls/hr 1X PERIOP ONCE 03/03/17 11:30 03/03/17 12:29 DC 03/03/17 12:13 Neostigmine Methylsulfate 5 mg STK-MED ONCE 03/03/17 12:24 03/03/17 12:25 DC Ondansetron HCl (Zofran Odt) 4 mg PRN Q6HRS PRN 03/02/17 09:00 Ondansetron HCl (Zofran) 4 mg STK-MED ONCE 03/03/17 11:38 03/03/17 11:39 DC Potassium Chloride/Dextrose/ Sod Cl 1,000 ml @ 75 mls/hr [id number] 03/02/17 09:00 03/05/17 04:18 75 MLS/HR Potassium Chloride (KCl Oral Soln) 7.5 meq DAILY 03/02/17 09:00 03/04/17 11:14 7.5 MEQ Prochlorperazine Edisylate (Compazine) 5 mg PACU PRN PRN 03/03/17 14:15 03/04/17 14:14 DC 03/03/17 14:13 5 MG Propofol 20 ml @ As Directed STK-MED ONCE 03/03/17 11:38 03/03/17 11:39 DC Ringer's Solution 1,000 ml @ 30 mls/hr Q24H 03/03/17 14:07 03/04/17 02:06 DC Rocuronium [place] (Zemuron) 100 mg STK-MED ONCE 03/03/17 12:27 03/03/17 12:28 DC Simvastatin (Zocor) 5 mg QHS 03/02/17 21:00 Valproic Acid (Depakene) 375 mg BID 03/02/17 09:00 03/04/17 11:11 375 MG LAB Lab: Laboratory Tests Test 03/04/17 21:13 03/05/17 07:51 03/05/17 11:00 03/05/17 16:38 Glucose (Fingerstick) 139 mg/dL (70-99) 222 mg/dL (70-99) 221 mg/dL (70-99) 187 mg/dL (70-99) QUIQUE BUI MD Mar 05, 2017 17:22
[2017-03-05] MEDS: metFORMIN 500 MG TABLET PO SCH (17:30)
[2017-03-05 19:00] VITALS: BP 138/67
[2017-03-05] MEDS: SIMVASTATIN 10 MG TABLET PO SCH (22:26)
[2017-03-05 23:00] VITALS: BP 132/58
[2017-03-06 03:00] VITALS: BP 134/66
[2017-03-06 04:46] LABS: BASO # 0.1 x10^3/uL (0.0-0.2); BASO % 1 % (0-3); EOS % 3 % (0-3); LYMPH # 1.7 x10^3/uL (1.0-4.8); LYMPH % 19 % (24-48); MEAN CORPUSCULAR HEMOGLOBIN 29 pg (25-35); MEAN CORPUSCULAR HGB CONC 33 g/dL (31-37); MEAN CORPUSCULAR VOLUME 88 fL (79-100); MONO % 11 % (0-9); NEUT % 67 % (31-73); PLATELET COUNT 197 x10^3/uL (140-400); RED BLOOD COUNT 4.11 x10^6/uL (4.30-5.70); RED CELL DISTRIBUTION WIDTH 14.5 % (11.5-14.5); WHITE BLOOD COUNT 9.2 x10^3/uL (4.0-11.0)
[2017-03-06 05:18] LABS: CALCIUM 8.2 mg/dL (8.5-10.1); CREATININE 1.4 mg/dL (0.7-1.3); GFR 47.9; POTASSIUM 4.3 mmol/L (3.5-5.1)
[2017-03-06] MEDS: LEVOTHYROXINE 50 MCG TABLET PO SCH (06:24)
[2017-03-06 07:00] VITALS: BP 149/69
--- NOTE | 2017-03-06 08:35 | PDOC ---
GENERAL General: vss and afebrile. labs acceptable. sugars increased and metformin added to regimen. remains with mits on to prevent pulling of iv's etc. chest clear, heart regular, abdomen benign. vanegas remains in place. plan to snu tomorrow if ok with ortho. Problems: VITAL SIGNS Vital Signs: Vital Signs Date Time Temp Pulse Resp B/P (MAP) Pulse Ox O2 Delivery O2 Flow Rate FiO2 03/06/17 03:00 98.5 65 20 134/66 (88) 97 Room Air 98.5 ALLERGIES Allergies: Allergies Coded Allergies Type Severity Reaction Last Updated Verified No Known Drug Allergies 03/03/17 No MEDS Medications: Current Medications Medications (Trade) Dose Ordered Sig/Jennifer Start Time Stop Time Status Last Admin Dose Admin Acetaminophen (Tylenol) 500 mg AFTRNOON 03/02/17 13:00 03/04/17 14:56 500 MG Alprazolam (Xanax) 0.5 mg PRN Q8HRS PRN 03/04/17 10:30 03/04/17 19:31 0.5 MG Cefazolin Sodium/ Dextrose 50 ml @ 100 mls/hr Q6H 03/03/17 18:00 03/04/17 06:29 DC 03/04/17 05:35 100 MLS/HR Cyanocobalamin (Vitamin B-12) 500 mcg DAILY 03/02/17 09:00 03/04/17 11:08 500 MCG Desflurane (Suprane) 90 ml STK-MED ONCE 03/03/17 13:19 03/03/17 13:20 DC Dexamethasone Sodium Phosphate (Decadron) 20 mg STK-MED ONCE 03/03/17 11:38 03/03/17 11:39 DC Dextrose (Dextrose 50%-Water Syringe) 12.5 gm PRN Q15MIN PRN 03/02/17 02:30 Donepezil HCl (Aricept) 10 mg DAILY 03/02/17 09:00 03/04/17 11:10 10 MG Enoxaparin Sodium (Lovenox 40mg Syringe) 40 mg Q24H 03/04/17 08:00 03/05/17 09:59 40 MG Famotidine (Pepcid) 20 mg STK-MED ONCE 03/03/17 11:38 03/03/17 11:39 DC Fentanyl Citrate (Fentanyl 2ml Vial) 50 mcg PRN Q5MIN PRN 03/03/17 14:15 03/04/17 14:14 DC Glycopyrrolate (Robinul) 1 mg STK-MED ONCE 03/03/17 11:59 03/03/17 12:00 DC Haloperidol Lactate (Haldol) 1 mg PRN Q4HRS PRN 03/04/17 20:00 03/05/17 07:31 1 MG Hydromorphone HCl (Dilaudid) 0.5 mg PRN Q10MIN PRN 03/03/17 14:15 03/04/17 14:14 DC Insulin Aspart (NovoLOG) 3 units 1X ONCE 03/03/17 23:00 03/03/17 23:01 DC 03/03/17 22:31 3 UNITS Levothyroxine Sodium (Synthroid) 50 mcg DAILY07 03/02/17 09:00 03/04/17 11:10 50 MCG Lidocaine HCl (Lidocaine Pf 2% Vial) 5 ml STK-MED ONCE 03/03/17 11:38 03/03/17 11:39 DC Lidocaine HCl (Xylocaine-Mpf 1% Vial) 2 ml 1X PRN PRN 03/03/17 14:15 03/04/17 14:14 DC Memantine (Namenda) 10 mg AFTRNOON 03/02/17 13:00 03/04/17 14:56 10 MG Metformin HCl (Glucophage) 500 mg BIDWMEALS 03/05/17 17:30 Morphine Sulfate 1 mg PRN Q10MIN PRN 03/03/17 14:15 03/04/17 14:14 DC 03/03/17 14:49 1 MG Morphine Sulfate 5 mg/Ketorolac Tromethamine 30 mg/Ropivacaine 60 ml/Epinephrine HCl 0.5 mg/Sodium Chloride 100 ml @ 100 mls/hr 1X PERIOP ONCE 03/03/17 11:30 03/03/17 12:29 DC 03/03/17 12:13 Neostigmine Methylsulfate 5 mg STK-MED ONCE 03/03/17 12:24 03/03/17 12:25 DC Ondansetron HCl (Zofran Odt) 4 mg PRN Q6HRS PRN 03/02/17 09:00 Ondansetron HCl (Zofran) 4 mg STK-MED ONCE 03/03/17 11:38 03/03/17 11:39 DC Potassium Chloride/Dextrose/ Sod Cl 1,000 ml @ 75 mls/hr [id number] 03/02/17 09:00 03/05/17 17:00 75 MLS/HR Potassium Chloride (KCl Oral Soln) 7.5 meq DAILY 03/02/17 09:00 03/04/17 11:14 7.5 MEQ Prochlorperazine Edisylate (Compazine) 5 mg PACU PRN PRN 03/03/17 14:15 03/04/17 14:14 DC 03/03/17 14:13 5 MG Propofol 20 ml @ As Directed STK-MED ONCE 03/03/17 11:38 03/03/17 11:39 DC Ringer's Solution 1,000 ml @ 30 mls/hr Q24H 03/03/17 14:07 03/04/17 02:06 DC Rocuronium [place] (Zemuron) 100 mg STK-MED ONCE 03/03/17 12:27 03/03/17 12:28 DC Simvastatin (Zocor) 5 mg QHS 03/02/17 21:00 Valproic Acid (Depakene) 375 mg BID 03/02/17 09:00 03/04/17 11:11 375 MG LAB Lab: Laboratory Tests Test 03/05/17 11:00 03/05/17 16:38 03/06/17 04:05 03/06/17 07:38 Glucose (Fingerstick) 221 mg/dL (70-99) 187 mg/dL (70-99) 206 mg/dL (70-99) White Blood Count 9.2 x10^3/uL (4.0-11.0) Red Blood Count 4.11 x10^6/uL (4.30-5.70) Hemoglobin 12.0 g/dL (13.0-17.5) Hematocrit 36.0 % (39.0-53.0) Mean Corpuscular Volume 88 fL (79-100) Mean Corpuscular Hemoglobin 29 pg (25-35) Mean Corpuscular Hemoglobin Concent 33 g/dL (31-37) Red Cell Distribution Width 14.5 % (11.5-14.5) Platelet Count 197 x10^3/uL (140-400) Neutrophils (%) (Auto) 67 % (31-73) Lymphocytes (%) (Auto) 19 % (24-48) Monocytes (%) (Auto) 11 % (0-9) Eosinophils (%) (Auto) 3 % (0-3) Basophils (%) (Auto) 1 % (0-3) Neutrophils # (Auto) 6.2 x10^3uL (1.8-7.7) Lymphocytes # (Auto) 1.7 x10^3/uL (1.0-4.8) Monocytes # (Auto) 1.0 x10^3/uL (0.0-1.1) Eosinophils # (Auto) 0.3 x10^3/uL (0.0-0.7) Basophils # (Auto) 0.1 x10^3/uL (0.0-0.2) Sodium Level 138 mmol/L (136-145) Potassium Level 4.3 mmol/L (3.5-5.1) Chloride Level 105 mmol/L (98-107) Carbon Dioxide Level 26 mmol/L (21-32) Anion Gap 7 (6-14) Blood Urea Nitrogen 18 mg/dL (8-26) Creatinine 1.4 mg/dL (0.7-1.3) Estimated GFR (Cockcroft-Gault) 47.9 Glucose Level 218 mg/dL (70-99) Calcium Level 8.2 mg/dL (8.5-10.1) QUIQUE BUI MD Mar 06, 2017 08:35
[2017-03-06] MEDS: CYANOCOBALAMIN (VITAMIN B-12) 1,000 MCG TABLET. PO SCH (09:39)
[2017-03-06] MEDS: DONEPEZIL HCL 10 MG TABLET. PO SCH (09:40)
[2017-03-06] MEDS: metFORMIN 500 MG TABLET PO SCH ×2 (09:40→17:00)
[2017-03-06] MEDS: VALPROIC ACID (AS SODIUM SALT) 250 MG/5 ML SOLUTION. PO SCH ×2 (09:40→20:30)
[2017-03-06] MEDS: POTASSIUM CHLORIDE 20 MEQ/15 ML ORAL LIQUID. PO SCH (09:40)
[2017-03-06] MEDS: ENOXAPARIN 40 MG/0.4 ML SYRINGE. SQ SCH (09:41)
[2017-03-06] MEDS: POTASSIUM CL 20MEQ D5-0.45NACL 1,000 ML IV SCH ×2 (09:42→20:34)
[2017-03-06] MEDS: INSULIN ASPART 300 UNITS/3 ML INSULN.PEN SQ SCH ×3 (09:50→18:00)
[2017-03-06 11:00] VITALS: BP 109/59
[2017-03-06] MEDS: MEMANTINE 10 MG TABLET. PO SCH (13:00)
[2017-03-06] MEDS: ACETAMINOPHEN 500 MG TABLET PO SCH (13:00)
[2017-03-06 15:00] VITALS: BP 103/71
[2017-03-06 19:15] VITALS: BP 132/63
[2017-03-06] MEDS: SIMVASTATIN 10 MG TABLET PO SCH (20:30)
[2017-03-06 23:00] VITALS: BP 111/54
[2017-03-07 03:00] VITALS: BP 147/87
[2017-03-07] MEDS: LEVOTHYROXINE 50 MCG TABLET PO SCH (06:38)
[2017-03-07 07:00] VITALS: BP 133/51
--- NOTE | 2017-03-07 08:13 | PDOC ---
GENERAL General: see discharge summary. Problems: VITAL SIGNS Vital Signs: Vital Signs Date Time Temp Pulse Resp B/P (MAP) Pulse Ox O2 Delivery O2 Flow Rate FiO2 03/07/17 03:00 98.9 88 18 147/87 (107) 94 Room Air 98.9 ALLERGIES Allergies: Allergies Coded Allergies Type Severity Reaction Last Updated Verified No Known Drug Allergies 03/03/17 No MEDS Medications: Current Medications Medications (Trade) Dose Ordered Sig/Jennifer Start Time Stop Time Status Last Admin Dose Admin Acetaminophen (Tylenol) 500 mg AFTRNOON 03/02/17 13:00 03/04/17 14:56 500 MG Alprazolam (Xanax) 0.5 mg PRN Q8HRS PRN 03/04/17 10:30 03/04/17 19:31 0.5 MG Cefazolin Sodium/ Dextrose 50 ml @ 100 mls/hr Q6H 03/03/17 18:00 03/04/17 06:29 DC 03/04/17 05:35 100 MLS/HR Cyanocobalamin (Vitamin B-12) 500 mcg DAILY 03/02/17 09:00 03/06/17 09:39 500 MCG Desflurane (Suprane) 90 ml STK-MED ONCE 03/03/17 13:19 03/03/17 13:20 DC Dexamethasone Sodium Phosphate (Decadron) 20 mg STK-MED ONCE 03/03/17 11:38 03/03/17 11:39 DC Dextrose (Dextrose 50%-Water Syringe) 12.5 gm PRN Q15MIN PRN 03/02/17 02:30 Donepezil HCl (Aricept) 10 mg DAILY 03/02/17 09:00 03/06/17 09:40 10 MG Enoxaparin Sodium (Lovenox 40mg Syringe) 40 mg Q24H 03/04/17 08:00 03/06/17 09:41 40 MG Famotidine (Pepcid) 20 mg STK-MED ONCE 03/03/17 11:38 03/03/17 11:39 DC Fentanyl Citrate (Fentanyl 2ml Vial) 50 mcg PRN Q5MIN PRN 03/03/17 14:15 03/04/17 14:14 DC Glycopyrrolate (Robinul) 1 mg STK-MED ONCE 03/03/17 11:59 03/03/17 12:00 DC Haloperidol Lactate (Haldol) 1 mg PRN Q4HRS PRN 03/04/17 20:00 03/05/17 07:31 1 MG Hydromorphone HCl (Dilaudid) 0.5 mg PRN Q10MIN PRN 03/03/17 14:15 03/04/17 14:14 DC Influenza Virus Vaccine Quadrival (Fluarix Quad [id number] Syringe) 0.5 ml ONCE ONCE 03/07/17 09:00 03/07/17 09:01 Insulin Aspart (NovoLOG) 3 units 1X ONCE 03/03/17 23:00 03/03/17 23:01 DC 03/03/17 22:31 3 UNITS Levothyroxine Sodium (Synthroid) 50 mcg DAILY07 03/02/17 09:00 03/04/17 11:10 50 MCG Lidocaine HCl (Lidocaine Pf 2% Vial) 5 ml STK-MED ONCE 03/03/17 11:38 03/03/17 11:39 DC Lidocaine HCl (Xylocaine-Mpf 1% Vial) 2 ml 1X PRN PRN 03/03/17 14:15 03/04/17 14:14 DC Memantine (Namenda) 10 mg AFTRNOON 03/02/17 13:00 03/04/17 14:56 10 MG Metformin HCl (Glucophage) 500 mg BIDWMEALS 03/05/17 17:30 03/06/17 09:40 500 MG Morphine Sulfate 1 mg PRN Q10MIN PRN 03/03/17 14:15 03/04/17 14:14 DC 03/03/17 14:49 1 MG Morphine Sulfate 5 mg/Ketorolac Tromethamine 30 mg/Ropivacaine 60 ml/Epinephrine HCl 0.5 mg/Sodium Chloride 100 ml @ 100 mls/hr 1X PERIOP ONCE 03/03/17 11:30 03/03/17 12:29 DC 03/03/17 12:13 Neostigmine Methylsulfate 5 mg STK-MED ONCE 03/03/17 12:24 03/03/17 12:25 DC Ondansetron HCl (Zofran Odt) 4 mg PRN Q6HRS PRN 03/02/17 09:00 Ondansetron HCl (Zofran) 4 mg STK-MED ONCE 03/03/17 11:38 03/03/17 11:39 DC Potassium Chloride/Dextrose/ Sod Cl 1,000 ml @ 75 mls/hr [id number] 03/02/17 09:00 03/06/17 20:34 75 MLS/HR Potassium Chloride (KCl Oral Soln) 7.5 meq DAILY 03/02/17 09:00 03/06/17 09:40 7.5 MEQ Prochlorperazine Edisylate (Compazine) 5 mg PACU PRN PRN 03/03/17 14:15 03/04/17 14:14 DC 03/03/17 14:13 5 MG Propofol 20 ml @ As Directed STK-MED ONCE 03/03/17 11:38 03/03/17 11:39 DC Ringer's Solution 1,000 ml @ 30 mls/hr Q24H 03/03/17 14:07 03/04/17 02:06 DC Rocuronium [place] (Zemuron) 100 mg STK-MED ONCE 03/03/17 12:27 03/03/17 12:28 DC Simvastatin (Zocor) 5 mg QHS 03/02/17 21:00 Valproic Acid (Depakene) 375 mg BID 03/02/17 09:00 03/06/17 09:40 375 MG LAB Lab: Laboratory Tests Test 03/06/17 10:50 03/06/17 16:48 03/06/17 20:38 03/07/17 07:25 Glucose (Fingerstick) 167 mg/dL (70-99) 196 mg/dL (70-99) 153 mg/dL (70-99) 199 mg/dL (70-99) QUIQUE BUI MD Mar 07, 2017 08:13
--- NOTE | 2017-03-07 08:47 | DS ---
DATE OF DISCHARGE: 03/07/2017 PRIMARY DIAGNOSES: Fall with right hip fracture. ADDITIONAL DIAGNOSES: Dementia, diabetes, hypothyroidism. CHIEF COMPLAINT AND HISTORY OF PRESENT ILLNESS: This 86-year-old white male, advanced dementia, lives at [facility] on Dementia Unit. He had a fall, sustaining a right femoral neck fracture and was admitted to the hospital. SUMMARY OF STAY: The patient was admitted, underwent right hip hemiarthroplasty. Postoperatively, he had lots of confusion and agitation, refused to participate with therapy. Laboratory was good. Sugars were anywhere from 150-200 throughout most of the stay and metformin was added to his regimen during the stay for the same. It was felt he could go back to [facility] and hope like participate in some alf there for rehab following this. He still had a [place] catheter in at the time of transfer and will need to probably be left until he was able to at least transfer to a bedside commode or something like that at the facility. DISPOSITION: The patient is discharged back to alf. Activity as outlined per Ortho. Med rec has been completed for meds and he will be on diet as tolerated. QUIQUE BUI MD DR: DAVE/aba JOB#: [id number] / [id number]
[2017-03-07] MEDS ORDERED: FLU VACC QS2017-18 (36MOS+)/PF 0.5 ML SYRINGE. VAX IM ONE (09:00)
[2017-03-07] MEDS: metFORMIN 500 MG TABLET PO SCH (09:21)
[2017-03-07] MEDS: CYANOCOBALAMIN (VITAMIN B-12) 1,000 MCG TABLET. PO SCH (09:21)
[2017-03-07] MEDS: ENOXAPARIN 40 MG/0.4 ML SYRINGE. SQ SCH (09:21)
[2017-03-07] MEDS: POTASSIUM CL 20MEQ D5-0.45NACL 1,000 ML IV SCH (09:22)
[2017-03-07] MEDS: POTASSIUM CHLORIDE 20 MEQ/15 ML ORAL LIQUID. PO SCH (09:23)
[2017-03-07] MEDS: VALPROIC ACID (AS SODIUM SALT) 250 MG/5 ML SOLUTION. PO SCH (09:23)
[2017-03-07] MEDS: DONEPEZIL HCL 10 MG TABLET. PO SCH (09:24)
[2017-03-07] MEDS: INSULIN ASPART 300 UNITS/3 ML INSULN.PEN SQ SCH ×2 (10:03→12:00)
[2017-03-07 11:00] VITALS: BP 133/60
== END 2017-03-07 13:35 | disposition home or self-care (01) | DRG 470 ==
LOC: ER 23:25 → 4 NORTH 03-02 01:29
PROVIDERS: ADMIT Family Medicine; ATTEND Family Medicine
PROC: 0SRR0J9 Replacement of Right Hip Joint, Femoral Surface with Synthetic Substitute, Cemented, Open Approach (ICD-10-PCS; principal; 2017-03-03 11:30)
DX: S72.001A Fracture of unspecified part of neck of right femur, initial encounter for closed fracture (principal); E11.9 Type 2 diabetes mellitus without complications; G30.9 Alzheimer's disease, unspecified; F02.80 Dementia in other diseases classified elsewhere, unspecified severity, without behavioral disturbance, psychotic disturbance, mood disturbance, and anxiety; E03.9 Hypothyroidism, unspecified; F29 Unspecified psychosis not due to a substance or known physiological condition; F32.9 Major depressive disorder, single episode, unspecified; F41.9 Anxiety disorder, unspecified; G47.00 Insomnia, unspecified; M19.90 Unspecified osteoarthritis, unspecified site; W19.XXXA Unspecified fall, initial encounter; Y93.89 Activity, other specified; Y92.89 Other specified places as the place of occurrence of the external cause; Y99.8 Other external cause status
CPT/HCPCS: 36415; 70450; 71010; 72125; 73502; 73560; 73600; 80048; 80053; 81001; 82962; 83874; 84484; 85025; 87641; 88305; 88311; 90686; 93005; 96374; C1713; J0171; J0690; J0780; J1100; J1630; J1650; J1815; J1885; J2270; J2405; J2704; J2710; J2795; J3010; J3490; J7030; J7120; S0028; 99285-25; J2001

== ENCOUNTER 2017-04-01 10:07 | Emergency (ER) | payer MEDICARE, OTHER ==
[~2017-04-01] VITALS: Ht 180.3 cm; Wt 83.9 kg
[~2017-04-01 10:07] MED LIST changes: +ACET500T68 PO; +DONE10TA61 PO; +FURO-69 PO; +IPRA0.2S5 NEB; +LEVO50TA5 PO; +LORA10TA68 PO; +ONDA4TAB10 SL; +POTA20LI27 PO; +SIMV10TA3 PO
[2017-04-01] MEDS ORDERED: fentaNYL PF VIAL 100 MCG/2 ML VIAL IV ONE (10:15)
--- NOTE | 2017-04-01 10:19 | PHYS DOC ---
Past Medical History Past Medical History: Anxiety, Dementia, Depression, Diabetes-Type II, Other Additional Past Medical Histor: Psychosis,Osteoarthritis, alzheimers, insomnia Past Surgical History: Other Additional Past Surgical Histo: unknown surgical hx. pt poor historian. Alcohol Use: None Drug Use: None Adult General Chief Complaint Chief Complaint: HIP PAIN HPI HPI Patient is a pleasant 86-year-old male who is coming from [facility] was in physical therapy today when he had sudden onset of pain in the right hip. He's had a recent hip fracture and replacement of this hip last February as been going to rehabilitation since. Patient has a history of vascular dementia, also missed disease, generalized weakness, dysphasia, chronic constipation, diabetes type 2, anxiety disorder, major depressive disorder, insomnia, and arthritis he was seen and treated for an oblique atypical femoral fracture of the right leg. While at rehabilitation today he was attempting to ambulate when he felt a pop and new pain in his hip. On arrival patient is resting comfortably vital signs within normal limits. He does not have any complaints he is resting quietly. Review of Systems Review of Systems Is demented which may limit history provided but he denies history of by EMS Constitutional: Denies fever or chills [] Respiratory: Denies cough or shortness of breath [] Cardiovascular: No additional information not addressed in HPI [] GI: Denies abdominal pain, nausea, vomiting, bloody stools or diarrhea [] Musculoskeletal: Complaint is right hip pain although this is not confirmed by patient Integument: Denies rash or skin lesions [] Neurologic: Denies headache All other systems were reviewed and found to be within normal limits, except as documented in this note. Current Medications Current Medications Current Medications Medications (Trade) Dose Ordered Sig/[facility] Start Time Stop Time Status Last Admin Dose Admin Fentanyl Citrate (Fentanyl 2ml Vial) 50 mcg 1X ONCE 04/01/17 10:15 04/01/17 10:16 DC Allergies Allergies Allergies Coded Allergies Type Severity Reaction Last Updated Verified No Known Drug Allergies 03/03/17 No Physical Exam Physical Exam Vital signs on the chart patient noted to be mildly tachycardic otherwise normal. Constitutional: Well developed, well nourished, no acute distress, non-toxic appearance. [] HENT: Normocephalic, atraumatic, bilateral external ears normal, oropharynx dry with no oral exudates, nose normal. [] Eyes: PERRLA, EOMI, conjunctiva normal, no discharge. [] Neck: Normal range of motion, no tenderness, supple, no stridor. [] Cardiovascular:Heart rate regular rhythm, no murmur [] Lungs & Thorax: Bilateral breath sounds clear to auscultation [] Abdomen: Bowel sounds normal, soft, no tenderness, no masses, no pulsatile masses. [] Skin: Warm, dry, no erythema, no rash. [] Back: No tenderness, Extremities: No apparent tenderness to the right hip decreased range of motion secondary to muscle weakness no obvious signs of trauma or deformity Neurologic: He is resting quietly with his eyes spontaneously is not answering any questions although he is only oriented to self Current Patient Data Vital Signs Vital Signs Date Time Temp Pulse Resp B/P (MAP) Pulse Ox O2 Delivery O2 Flow Rate FiO2 04/01/17 10:07 96.8 100 20 111/66 (81) 96 Room Air 96.8 EKG EKG [] Radiology/Procedures Radiology/Procedures [] IMAGING REPORT Signed PATIENT: MARIBEL LARSEN ACCOUNT: [id number] : 1930 LOCATION: ER AGE: 86 SEX: M EXAM STATUS: REG ER ORD. PHYSICIAN: ROGERIO LAGUNAS MD REASON: hip pain PROCEDURE: HIP RIGHT 2V WITH PELVIS Pelvis with right hip, 3 views, 04/01/2017: History: Hip pain The bony structures are demineralized. A bipolar right hip prosthesis has been inserted since the 03/02/2017 study. It appears to be in satisfactory position. No new fracture or dislocation is identified. There are mild degenerative changes at the left hip and in the symphysis pubis. Degenerative changes are also noted in the lower lumbar spine. IMPRESSION: 1. A right bipolar hip prosthesis is in satisfactory position. 2. No acute bony abnormality is detected. DICTATED and SIGNED BY: BRIGIDA CASIANO MD DATE: 04/01/173 CC: TAWANA MEIER; ROGERIO LAGUNAS MD ~ Course & Med Decision Making Course & Med Decision Making Pertinent Labs and Imaging studies reviewed. (See chart for details) []Presented with right hip pain after physical therapy there is no obvious fracture dislocation of the hip patient is resting quietly and comfortable with no complaints with discharge back to the group home. Patient is a total move the hip without issue prosthetic is in place on physical exam patient is quietly sleeping Dragon Disclaimer Dragon Disclaimer This electronic medical record was generated, in whole or in part, using a voice recognition dictation system. Departure Departure Impression: Primary Impression: Hip pain Disposition: HOME, SELF-CARE Condition: IMPROVED Referrals: TAWANA MEIER (PCP) Patient Instructions: Hip Injury, Hip Pain Additional Instructions: discharge: I've spoken with the patient and/or caregivers. I've explained the patient's condition, diagnosis and treatment plan based on information available to me at this time. I've answered the patient's and/or caregivers questions and addressed any concerns. The patient and/or caregivers have a good understanding the patient's diagnosis, condition and treatment plan as can be expected at this point. Vital signs have been stabilized. The patient's condition is stable for discharge from the emergency department. The patient will pursue further outpatient evaluation with her primary care provider or other designated consulting physician as outlined in the discharge instructions. Patient and/or caregivers are agreeable to this plan of care and follow-up instructions have been explained in detail. The patient and/or caregivers have received these instructions in written format and expressed understanding of these discharge instructions. The patient and her caregivers are aware that if any significant change in condition or worsening of symptoms should prompt him to immediately return to this of the closest emergency department. If an emergent department is not readily available I would encourage him to call 911. Scripts Tramadol Hcl/Acetaminophen (TRAMADOL-ACETAMINOPHN 37.5-325) 1 Each Tablet 1 TAB PO Q4-6HRS, #10 TAB Prov: ROGERIO LAGUNAS MD 04/01/17 ROGERIO LAGUNAS MD Apr 01, 2017 10:19
--- NOTE | 2017-04-01 11:26 | RAD ---
Pelvis with right hip, 3 views, 04/01/2017: History: Hip pain The bony structures are demineralized. A bipolar right hip prosthesis has been inserted since the 03/02/2017 study. It appears to be in satisfactory position. No new fracture or dislocation is identified. There are mild degenerative changes at the left hip and in the symphysis pubis. Degenerative changes are also noted in the lower lumbar spine. IMPRESSION: 1. A right bipolar hip prosthesis is in satisfactory position. 2. No acute bony abnormality is detected.
[2017-04-01] MEDS ORDERED: TRAM1TAB4 PO (12:23)
[2017-04-01 13:39] VITALS: BP 121/61
== END 2017-04-01 14:05 | disposition home or self-care (01) ==
LOC: ER 10:07
DX: M25.551 Pain in right hip (principal); F41.9 Anxiety disorder, unspecified; F02.80 Dementia in other diseases classified elsewhere, unspecified severity, without behavioral disturbance, psychotic disturbance, mood disturbance, and anxiety; F32.9 Major depressive disorder, single episode, unspecified; E11.9 Type 2 diabetes mellitus without complications; G30.9 Alzheimer's disease, unspecified; M19.90 Unspecified osteoarthritis, unspecified site; G47.00 Insomnia, unspecified; K59.09 Other constipation; F29 Unspecified psychosis not due to a substance or known physiological condition; Z96.641 Presence of right artificial hip joint
CPT/HCPCS: 73502; 99284

== ENCOUNTER 2017-04-04 13:35 | Inpatient (IN) | payer MEDICARE, OTHER ==
[~2017-04-04] VITALS: Ht 182.9 cm; Wt 93.0 kg
[~2017-04-04 13:35] MED LIST changes: +TRAM1TAB4 PO
[2017-04-04 15:26] LABS: BASO # 0.2 x10^3/uL (0.0-0.2); BASO % 1 % (0-3); EOS % 1 % (0-3); HEMATOCRIT 48.7 % (39.0-53.0); HEMOGLOBIN 15.2 g/dL (13.0-17.5); LYMPH # 1.4 x10^3/uL (1.0-4.8); LYMPH % 8 % (24-48); MEAN CORPUSCULAR HEMOGLOBIN 29 pg (25-35); MEAN CORPUSCULAR HGB CONC 31 g/dL (31-37); MEAN CORPUSCULAR VOLUME 92 fL (79-100); MONO % 6 % (0-9); NEUT % 83 % (31-73); PLATELET COUNT 201 x10^3/uL (140-400); RED BLOOD COUNT 5.31 x10^6/uL (4.30-5.70); RED CELL DISTRIBUTION WIDTH 16.9 % (11.5-14.5); WHITE BLOOD COUNT 16.9 x10^3/uL (4.0-11.0)
--- NOTE | 2017-04-04 15:37 | EKG ---
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
--- NOTE | 2017-04-04 15:38 | RAD ---
Single view chest radiograph 04/04/2017 Clinical indication: Altered mental status. Comparison: Chest 03/02/2017 Findings: Cardiac and mediastinal silhouettes are unremarkable. Calcified atheromatous disease of the thoracic aorta. No pleural effusion, pneumothorax or focal consolidation. Impression: No acute cardiopulmonary abnormality.
--- NOTE | 2017-04-04 15:43 | PHYS DOC ---
Past Medical History Past Medical History: Anxiety, Dementia, Depression, Diabetes-Type II, Other Additional Past Medical Histor: Psychosis,Osteoarthritis, alzheimers, insomnia Past Surgical History: Hip Replacement, Other Additional Past Surgical Histo: unknown surgical hx. pt poor historian. Alcohol Use: None Drug Use: None Adult General Chief Complaint Chief Complaint: ALTERED MENTAL STATUS HPI HPI Patient is a 86 year old M who presents with altered mental status. At baseline patient is AO x 1 and very agitated however for the past couple days he 's been less agitated and not his normal self. Patient is coming from a retirement. [facility] does not report any fevers. Patient was recently admitted for hip fracture. No family is at bedside. All history has been obtained from the retirement and EMS. Review of Systems Review of Systems Limited review of symptoms secondary to patient's clinical condition All other systems were reviewed and found to be within normal limits, except as documented in this note. Current Medications Current Medications Current Medications Medications (Trade) Dose Ordered Sig/Jennifer Start Time Stop Time Status Last Admin Dose Admin Acetaminophen (Tylenol) 650 mg PRN Q4HRS PRN 04/04/17 16:30 04/05/17 16:29 Fentanyl Citrate (Fentanyl 2ml Vial) 50 mcg PRN Q1HR PRN 04/04/17 16:30 04/05/17 16:29 Ondansetron HCl (Zofran) 4 mg PRN Q8HRS PRN 04/04/17 16:30 04/05/17 16:29 Piperacillin Sod/ Tazobactam Sod (Zosyn Per Pharmacy) 1 each PRN DAILY PRN 04/04/17 16:15 UNV Piperacillin Sod/ Tazobactam Sod (Zosyn) 2.25 gm 1X ONCE 04/04/17 16:30 04/04/17 16:31 Sodium Chloride 1,000 ml @ 125 mls/hr Q8H 04/04/17 16:19 04/05/17 16:18 Vancomycin HCl (Vanco Per Pharmacy) 1 each PRN DAILY PRN 04/04/17 16:15 UNV Vancomycin HCl 1.75 gm/Dextrose 500 ml @ 250 mls/hr 1X ONCE 04/04/17 16:30 04/04/17 18:29 Allergies Allergies Allergies Coded Allergies Type Severity Reaction Last Updated Verified No Known Drug Allergies 03/03/17 No Physical Exam Physical Exam GEN.: No apparent distress. Alert and oriented x 1 HEENT: Head is normocephalic, atraumatic, dry mucous membranes NECK: Supple. LUNGS: CTAB. HEART: RRR, S1, S2 present. Peripheral pulses intact ABDOMEN: Soft, nontender. Positive bowel sounds. EXTREMITIES: Without any cyanosis. NEUROLOGIC: Nonverbal PSYCHIATRIC: Agitated SKIN: No ulcerations Current Patient Data Vital Signs Vital Signs Date Time Temp Pulse Resp B/P (MAP) Pulse Ox O2 Delivery O2 Flow Rate FiO2 04/04/17 16:00 104 92 04/04/17 15:30 25 04/04/17 13:40 98.5 109/56 (73) Nasal Cannula 2.0 98.5 Lab Values Laboratory Tests Test 04/04/17 13:40 04/04/17 13:58 White Blood Count 16.9 x10^3/uL (4.0-11.0) H Red Blood Count 5.31 x10^6/uL (4.30-5.70) Hemoglobin 15.2 g/dL (13.0-17.5) Hematocrit 48.7 % (39.0-53.0) Mean Corpuscular Volume 92 fL (79-100) Mean Corpuscular Hemoglobin 29 pg (25-35) Mean Corpuscular Hemoglobin Concent 31 g/dL (31-37) Red Cell Distribution Width 16.9 % (11.5-14.5) H Platelet Count 201 x10^3/uL (140-400) Neutrophils (%) (Auto) 83 % (31-73) H Lymphocytes (%) (Auto) 8 % (24-48) L Monocytes (%) (Auto) 6 % (0-9) Eosinophils (%) (Auto) 1 % (0-3) Basophils (%) (Auto) 1 % (0-3) Neutrophils # (Auto) 14.1 x10^3uL (1.8-7.7) H Lymphocytes # (Auto) 1.4 x10^3/uL (1.0-4.8) Monocytes # (Auto) 1.1 x10^3/uL (0.0-1.1) Eosinophils # (Auto) 0.2 x10^3/uL (0.0-0.7) Basophils # (Auto) 0.2 x10^3/uL (0.0-0.2) Segmented Neutrophils % 69 % (35-66) H Band Neutrophils % 13 % (0-9) H Lymphocytes % 13 % (24-48) L Monocytes % 4 % (0-10) Eosinophils % 1 % (0-5) Toxic Granulation Slight Platelet Estimate Adequate (ADEQUATE) Sodium Level 167 mmol/L (136-145) *H Potassium Level 4.2 mmol/L (3.5-5.1) Chloride Level 124 mmol/L (98-107) H Carbon Dioxide Level 24 mmol/L (21-32) Anion Gap 19 (6-14) H Blood Urea Nitrogen 76 mg/dL (8-26) H Creatinine 5.1 mg/dL (0.7-1.3) H Estimated GFR (Cockcroft-Gault) 10.8 BUN/Creatinine Ratio 15 (6-20) Glucose Level 250 mg/dL (70-99) H Lactic Acid Level 4.7 mmol/L (0.4-2.0) *H Calcium Level 9.5 mg/dL (8.5-10.1) Total Bilirubin 0.7 mg/dL (0.2-1.0) Aspartate Amino Transferase (AST) 41 U/L (15-37) H Alanine Aminotransferase (ALT) 34 U/L (16-63) Alkaline Phosphatase 136 U/L (46-116) H Total Protein 8.6 g/dL (6.4-8.2) H Albumin 3.2 g/dL (3.4-5.0) L Albumin/Globulin Ratio 0.6 (1.0-1.7) L Lipase 134 U/L (73-393) Urine Collection Type U cath Urine Color Dk yellow Urine Clarity Clear Urine pH 5.5 Urine Specific [place] >=1.030 Urine Protein Negative mg/dL (NEG-TRACE) Urine Glucose (UA) Negative mg/dL (NEG) Urine Ketones (Stick) Trace mg/dL (NEG) Urine Blood Small (NEG) Urine Nitrite Negative (NEG) Urine Bilirubin Small (NEG) Urine Urobilinogen Dipstick 0.2 mg/dL (0.2 mg/dL) Urine Leukocyte Esterase Negative (NEG) Urine RBC Rare /HPF (0-2) Urine WBC 0 /HPF (0-4) Urine Transitional Epithelial Cells Few /LPF Urine Bacteria 0 /HPF (0-FEW) Urine Hyaline Casts Many /HPF Urine Mucus Mod /LPF Laboratory Tests 04/04/17 13:40 Laboratory Tests 04/04/17 13:40 EKG EKG [] Interpretation Time: 1348: EKG shows sinus tachycardia rate of 108 no STEMI Radiology/Procedures Radiology/Procedures Chest x-ray NAD CT scan of the head without contrast NAD[] Course & Med Decision Making Course & Med Decision Making Pertinent Labs and Imaging studies reviewed. (See chart for details) ED course: Patient was seen and examined emergency room septic workup was ordered. Reviewed blood work patient still has no family at bedside will admit the patient for hypernatremia and acute renal failure 1625: Discussed CC/HP/PMH with Dr. Vasquez and recommends admit [] [] Dragon Disclaimer Dragon Disclaimer This electronic medical record was generated, in whole or in part, using a voice recognition dictation system. Departure Departure Impression: Primary Impression: Hypernatremia Additional Impressions: Acute renal failure Altered mental status Disposition: ADMITTED INPATIENT Admitting Physician: Other (Dr. Vasquez) Condition: GUARDED Referrals: TAWANA MEIER (PCP) Problem Qualifiers PATRICIA COHEN DO Apr 04, 2017 15:43
[2017-04-04 15:44] LABS: % EOS 1 % (0-5)
[2017-04-04 15:46] LABS: ALBUMIN 3.2 g/dL (3.4-5.0); ALBUMIN/GLOBULIN RATIO 0.6 (1.0-1.7); CALCIUM 9.5 mg/dL (8.5-10.1); CREATININE 5.1 mg/dL (0.7-1.3); GFR 10.8; POTASSIUM 4.2 mmol/L (3.5-5.1); TOTAL BILIRUBIN 0.7 mg/dL (0.2-1.0); TOTAL PROTEIN 8.6 g/dL (6.4-8.2)
[2017-04-04 15:47] LABS: PLT ESTIMATE ADEQUATE (ADEQUATE); TOXIC GRANULATION SLIGHT
[2017-04-04 15:55] LABS: BILIRUBIN,URINE SMALL (NEG); GLUCOSE,URINE NEGATIVE (NEG); NITRITE,URINE NEGATIVE (NEG); PH,URINE 5.5; PROTEIN,URINE NEGATIVE (NEG-TRACE); UROBILINOGEN,URINE 0.2 mg/dL (0.2 mg/dL)
--- NOTE | 2017-04-04 16:00 | RAD ---
CT of the head without contrast, 04/04/2017: History: Altered mental status Comparison is made to a study from 03/01/2017. There is moderate cerebral atrophy and mild cerebellar atrophy. The ventricles are mildly prominent on a compensatory basis. There is no shift of midline structures. There is no evidence of acute intracranial hemorrhage or mass effect. There are minimal deep white matter lucencies compatible with chronic ischemic change. IMPRESSION: 1. Chronic findings as described above. 2. No acute intracranial abnormality is detected. PQRS Compliance Statement: One or more of the following individualized dose reduction techniques were utilized for this examination: 1. Automated exposure control 2. Adjustment of the mA and/or kV according to patient size 3. Use of iterative reconstruction technique
[2017-04-04 16:05] LABS: RBC,URINE RARE /HPF (0-2); WBC,URINE 0 /HPF (0-4)
[2017-04-04 16:06] LABS: BACTERIA,URINE 0 /HPF (0-FEW)
[2017-04-04] MEDS ORDERED: PIP/TAZO PER PHARMACY MC PRN (16:15)
[2017-04-04] MEDS ORDERED: ACETAMINOPHEN 325 MG TABLET. PO PRN ×2 (16:30→20:30)
[2017-04-04] MEDS ORDERED: VANCOMYCIN 1.75 GM in IV DEXTROSE 5% 500 ML IV ONE (16:30)
[2017-04-04] MEDS ORDERED: fentaNYL PF VIAL 100 MCG/2 ML VIAL IV PRN (16:30)
[2017-04-04] MEDS ORDERED: PIPERACILLIN/TAZO IV Push 2.25 GM VIAL. IVP ONE (16:30)
[2017-04-04] MEDS ORDERED: IV NORMAL SALINE 1000ML BAG 1,000 ML IV ONE ×2 (16:30)
[2017-04-04] MEDS ORDERED: ONDANSETRON PF 4 MG/2 ML VIAL. IV PRN (16:30)
[2017-04-04] MEDS: VANCOMYCIN PER PHARMACY MC PRN (17:47)
[2017-04-04] MEDS ORDERED: TERB250T8 PO (18:37)
[2017-04-04] MEDS ORDERED: TRAM50TA PO (18:37)
[2017-04-04] MEDS ORDERED: ACET325T9 PO (18:37)
[2017-04-04] MEDS ORDERED: POLY17PO29 PO (18:37)
[2017-04-04] MEDS ORDERED: OXYC5TAB95 PO (18:37)
[2017-04-04] MEDS ORDERED: ALPR0.5T6 PO (18:37)
[2017-04-04] MEDS ORDERED: BISA-42 PO (18:37)
[2017-04-04] MEDS ORDERED: METF500T4 PO (18:37)
[2017-04-04] MEDS ORDERED: QUET25TA5 PO (18:37)
[2017-04-04] MEDS ORDERED: SENN-37 PO (18:37)
[2017-04-04] MEDS ORDERED: INSU100C4 SQ (18:37)
[2017-04-04 19:00] VITALS: BP 98/50
[2017-04-04] MEDS ORDERED: DEXTROSE 50% 25 GM / 50ML DISP.SYRIN. IV PRN (20:30)
[2017-04-04] MEDS ORDERED: IPRATROPIUM BROMIDE 0.5 MG/2.5 ML NEBU. NEB PRN (20:30)
[2017-04-04] MEDS: IV NORMAL SALINE 1000ML BAG 1,000 ML IV SCH (21:04)
[2017-04-04] MEDS: INSULIN DETEMIR 300 UNITS/3 ML INSULN.PEN. SQ SCH (21:14)
[2017-04-04 23:00] VITALS: BP 95/52
[2017-04-04] MEDS: PIPERACILLIN/TAZO IV Push 2.25 GM VIAL. IVP SCH (23:00)
--- NOTE | 2017-04-04 23:20 | HP ---
ADMIT DATE: 04/04/2017 CHIEF COMPLAINT: Acute mental status changes. HISTORY OF PRESENT ILLNESS: The patient is an 86-year-old [facility] resident who was brought to the Emergency Room for a change in behavior. According to staff, he is typically quite agitated and he was noted to be getting quieter and quieter. The timeframe is unfortunately unknown. As the patient is essentially obtunded, no family present, all information was elicited from the [facility] staff and EMS as well as the previous chart. PAST MEDICAL HISTORY: Alzheimer's, anxiety/depression, diabetes. FAMILY HISTORY: Unknown. SOCIAL HISTORY: No toxic habits. assisted patient. ALLERGIES: No known drug allergies. MEDICATIONS: MAR reconciled with home medications. REVIEW OF SYSTEMS: Unable to obtain due to the patient's obtundation. PHYSICAL EXAMINATION: VITAL SIGNS: From today show a blood pressure of 109/56, heart rate at 104, respiratory rate at 22. GENERAL: This is an 86-year-old pale appearing gentleman, resting in bed, moving head to voice, but not responding to commands. No verbal input. HEENT: Shows no scleral icterus. NECK: Supple. LUNGS: Clear anteriorly. HEART: Has a regular rate and rhythm. ABDOMEN: Has positive bowel sounds, soft, nontender. EXTREMITIES: Show no edema. SKIN: Warm, soft and dry. LABORATORY DATA: CBC with a WBC of 16.9, hemoglobin 15.2, platelets of 201. Chemistries with a BUN and creatinine of 76 and 5.1, of note previously in the 1.5 range; sodium of 167, potassium 4.2. Lactic acid 4.7. Urine is dark yellow. No signs of infection. IMAGING STUDIES: Chest x-ray in the Emergency Room shows no acute cardiopulmonary abnormality. CT of the head shows chronic atrophy and mild cerebellar atrophy. ASSESSMENT AND PLAN: The patient is an 86-year-old demented [facility] patient who presents with severe hypernatremia. Suspect this is secondary to dehydration. No sign of infection can be found at this time. He will receive fluid resuscitation. We will monitor his sodium. We will hold all oral medications for the time being as I suspect he is too obtunded to swallow properly. We will reevaluate in the morning. He does have a history of insulin-dependent diabetes. As he is n.p.o. at this time, we will monitor with insulin sliding scale. His Levemir dose will be cut in half. RAY BRIAN MD DR: ROSENDO/aba JOB#: [id number] / [id number] LILLIAM
[2017-04-05 03:00] VITALS: BP 119/46
[2017-04-05] MEDS: IV NORMAL SALINE 1000ML BAG 1,000 ML IV SCH ×2 (03:53)
[2017-04-05 05:41] LABS: BASO # 0.1 x10^3/uL (0.0-0.2); BASO % 1 % (0-3); EOS % 1 % (0-3); HEMATOCRIT 44.9 % (39.0-53.0); HEMOGLOBIN 13.5 g/dL (13.0-17.5); LYMPH # 2.3 x10^3/uL (1.0-4.8); LYMPH % 17 % (24-48); MEAN CORPUSCULAR HEMOGLOBIN 29 pg (25-35); MEAN CORPUSCULAR HGB CONC 30 g/dL (31-37); MEAN CORPUSCULAR VOLUME 95 fL (79-100); MONO % 6 % (0-9); NEUT % 75 % (31-73); PLATELET COUNT 158 x10^3/uL (140-400); RED BLOOD COUNT 4.71 x10^6/uL (4.30-5.70); RED CELL DISTRIBUTION WIDTH 17.5 % (11.5-14.5)
[2017-04-05 05:48] LABS: CALCIUM 8.6 mg/dL (8.5-10.1); CREATININE 4.7 mg/dL (0.7-1.3); GFR 11.8; POTASSIUM 4.4 mmol/L (3.5-5.1)
[2017-04-05] MEDS: PIPERACILLIN/TAZO IV Push 2.25 GM VIAL. IVP SCH ×3 (06:00→21:04)
[2017-04-05] MEDS ORDERED: IV 1/2 NORMAL SALINE 1,000 ML IV SCH (06:15)
[2017-04-05 07:20] VITALS: BP 102/80
[2017-04-05] MEDS: INSULIN ASPART 300 UNITS/3 ML INSULN.PEN SQ SCH ×3 (08:00→16:43)
[2017-04-05] MEDS: INSULIN DETEMIR 300 UNITS/3 ML INSULN.PEN. SQ SCH ×2 (08:19→21:09)
[2017-04-05] MEDS: VANCOMYCIN PER PHARMACY MC PRN (09:33)
--- NOTE | 2017-04-05 09:39 | PDOC2 ---
CONSULT Date of Consult Date of Consult DATE: 04/05/17 TIME: 09:37 Reason for Consult Reason for Consult: ARF Referring Physician Referring Physician: Dr Alcala Identification/Chief Complaint Chief Complaint none from pt - sent from CT due to decreased LOC and lack of interactiveness Problems: Source Source: Chart review, Patient Past Medical History Cardiovascular: No pertinent hx Pulmonary: No pertinent hx CENTRAL NERVOUS SYSTEM: Dementia Psych: Anxiety, Depression, Other Endocrine: Diabetes Past Surgical History Past Surgical History: Other Family History Family History: Family History Unknown (unable to be obtained from pt due to mental status and probably not relevant given advanced age) Social History ALCOHOL: none Drugs: None Lives: [facility] Domestic Violence: Neg Current Problem List Problem List Problems Medical Problems: (1) Acute renal failure Status: Acute (2) Altered mental status Status: Acute (3) Hypernatremia Status: Acute Current Medications Current Medications Current Medications Piperacillin Sod/ Tazobactam Sod (Zosyn Per Pharmacy) 1 each PRN DAILY PRN MC SEE COMMENTS; Start 04/04/17 at 16:15 Vancomycin HCl (Vanco Per Pharmacy) 1 each PRN DAILY PRN MC SEE COMMENTS Last administered on 04/04/17 17:47; Start 04/04/17 at 16:15 Vancomycin HCl 1.75 gm/Dextrose 500 ml @ 250 mls/hr 1X ONCE IV Last administered on 04/04/17 16:54; Start 04/04/17 at 16:30; Stop 04/04/17 at 18 :29; Status DC Piperacillin Sod/ Tazobactam Sod (Zosyn) 2.25 gm 1X ONCE IVP Last administered on 04/04/17 16:53; Start 04/04/17 at 16:30; Stop 04/04/17 at 16 :31; Status DC Sodium Chloride 1,000 ml @ 1,000 mls/hr 1X ONCE IV Last administered on 04/04 16:54; Start 04/04/17 at 16:30; Stop 04/04/17 at 17:29; Status DC Sodium Chloride 1,000 ml @ 1,000 mls/hr 1X ONCE IV Last administered on 04/04 16:54; Start 04/04/17 at 16:30; Stop 04/04/17 at 17:29; Status DC Ondansetron HCl (Zofran) 4 mg PRN Q8HRS PRN IV NAUSEA/VOMITING; Start at 16:30; Stop 04/05/17 at 16:29 Fentanyl Citrate (Fentanyl 2ml Vial) 50 mcg PRN Q1HR PRN IV PAIN; Start at 16:30; Stop 04/04/17 at 20:31; Status DC Sodium Chloride 1,000 ml @ 200 mls/hr Q5H IV Last administered on 04/05/17 00:00; Start 04/04/17 at 16:19; Stop 04/05/17 at 06:30; Status DC Acetaminophen (Tylenol) 650 mg PRN Q4HRS PRN PO FEVER; Start 04/04/17 at 16:30 ; Stop 04/05/17 at 16:29 Piperacillin Sod/ Tazobactam Sod (Zosyn) 2.25 gm Q8HRS IVP Last administered on 04/05/17 06:00; Start 04/04/17 at 23:00 Vancomycin HCl 1 each 1X ONCE MC ; Start 04/06/17 at 17:00; Stop 04/06/17 at 17:01 Acetaminophen (Tylenol) 650 mg PRN Q4HRS PRN PO MILD PAIN/TEMP; Start at 20:30 Ipratropium Benge (Atrovent) 0.2 mg PRN Q6HRS PRN NEB SHORTNESS OF BREATH; Start 04/04/17 at 20:30 Insulin Detemir (Levemir) 7 units BID SQ Last administered on 04/05/17 08:19 ; Start 04/04/17 at 21:00 Insulin Aspart (NovoLOG) 0-5 UNITS TIDWMEALS SQ ; Start 04/05/17 at 08:00 Dextrose (Dextrose 50%-Water Syringe) 12.5 gm PRN Q15MIN PRN IV SEE COMMENTS; Start 04/04/17 at 20:30 Sodium Chloride 1,000 ml @ 200 mls/hr Q5H IV Last administered on 04/05/17 06:11; Start 04/05/17 at 06:15 Active Scripts Active Reported Tylenol (Acetaminophen) 325 Mg Tablet 2 Tab PO PRN Q4HRS Tramadol Hcl 50 Mg Tablet 1 Tab PO PRN Q6HRS Terbinafine Hcl 250 Mg Tablet 1 Tab PO DAILY Senokot-S Tablet (Sennosides/Docusate Sodium) 1 Each Tablet 2 Tab PO BID Seroquel (Quetiapine Fumarate) 25 Mg Tablet 1 Tab PO BID Oxycodone Hcl 5 Mg Tablet 0.5 Tab PO Q4HRS Novolog (Insulin Aspart) 100 Unit/1 Ml Cartridge 100 Unit SQ Miralax (Polyethylene Glycol 3350) 17 Gm Powd.pack 1 Packet PO DAILY Metformin Hcl 500 Mg Tablet 500 Mg PO BIDWMEALS Dulcolax (Bisacodyl) 5 Mg Tablet.dr 5 Mg PO DAILY Alprazolam 0.5 Mg Tablet 0.5 Mg PO PRN Q8HRS PRN Ipratropium Benge 0.2 Mg/1 Ml Solution 1 Vial NEB PRN Q6HRS PRN Aricept (Donepezil Hcl) 10 Mg Tablet 1 Tab PO DAILY Lasix (Furosemide) 20 Mg Tablet 1.5 Tab PO DAILY Levemir (Insulin Detemir) 100 Unit/1 Ml Vial 14 Unit SQ DAILY08 Levothyroxine Sodium 50 Mcg Tablet 1 Tab PO DAILY Namenda (Memantine Hcl) 10 Mg Tablet 10 Mg PO AFTRNOON Potassium Chloride Oral Liquid (Potassium Chloride) 20 Meq/15 Ml Liquid 7.5 Meq PO DAILY Simvastatin 10 Mg Tablet 0.5 Tab PO QHS Levemir (Insulin Detemir) 100 Unit/1 Ml Vial 14 Unit SQ HS Valproic Acid (Valproate Sodium) 250 Mg/5 Ml Solution 375 Mg PO BID Melatonin 3 Mg Tablet 1 Tab PO QHS Vitamin B-12 (Cyanocobalamin (Vitamin B-12)) 1,000 Mcg Tablet 500 Mcg PO DAILY Allergies Allergies: Coded Allergies: No Known Drug Allergies (Unverified , 03/03/17) ROS Review of System unable to obtain due to underlying AMS Physical Exam Physical Exam General Appearance: Awake somewhat Alert Oriented x 0 In no Distress Eyes: Sclera Anicteric Conjunctiva Normal EN: No EN Drainage Mucous Memb. dry Neck: no JVD no JVP Supple no Thyromegaly CVS: S1 S2 no Murmur No Gallop No Rub no Edema Resp: no Rales no Rhonchi no Acc. Muscle use GI: BAS +ve NO Bruit Non Tender Non Distended : no CVA tenderness; no Suprapubic Tenderness SKIN: no visible Rashes Breast Exam deferred; ? Rt Hip wound Mu.Sk: Adequate ROM in upper ext, does not follow commands currently ; min Muscle Atrophy Heme: Unable to palpate Obvious LAD no palp Splenomegaly NEURO: Good Strength and Tone in upper ext ; no asterixis; does not follow commands due to underlying encephalopahty Psych: ? Depressed no Active hallucination Vital Signs Vital Signs Date Time Temp Pulse Resp B/P (MAP) Pulse Ox O2 Delivery O2 Flow Rate FiO2 04/05/17 08:00 Nasal Cannula 2.0 04/05/17 07:20 97.7 75 18 102/80 (87) 97 97.7 Assessment & Plan ARF/ ? ATN - due to septic shock vs Pre-renal due to sev dehydration. Current FLuid and E-lyte status does not necessitate emergent need for Dialysis. Poor candidate for HD given current functional status Lactic Acidosis (WAGMA) - follow trend with serial levels. ? due to sepsis vs due to Hypovolemia - reval response to Vol repeltion ^Na - PPN for nwo Sev Dehydration - Hypotonic IVF in the frmo of PPN suspected malnutrition - PPN for now AMS - suspect asso with infection/ HypoVolemia >> renal dysfunction HypoTN: somewaht better with IVF for now . IVF boluses prn ? Hip Wound -- ID etc consulted May need code status addressed Labs Labs Laboratory Tests Test 04/04/17 13:40 04/04/17 13:58 04/04/17 20:00 04/04/17 20:46 White Blood Count 16.9 x10^3/uL (4.0-11.0) Red Blood Count 5.31 x10^6/uL (4.30-5.70) Hemoglobin 15.2 g/dL (13.0-17.5) Hematocrit 48.7 % (39.0-53.0) Mean Corpuscular Volume 92 fL (79-100) Mean Corpuscular Hemoglobin 29 pg (25-35) Mean Corpuscular Hemoglobin Concent 31 g/dL (31-37) Red Cell Distribution Width 16.9 % (11.5-14.5) Platelet Count 201 x10^3/uL (140-400) Neutrophils (%) (Auto) 83 % (31-73) Lymphocytes (%) (Auto) 8 % (24-48) Monocytes (%) (Auto) 6 % (0-9) Eosinophils (%) (Auto) 1 % (0-3) Basophils (%) (Auto) 1 % (0-3) Neutrophils # (Auto) 14.1 x10^3uL (1.8-7.7) Lymphocytes # (Auto) 1.4 x10^3/uL (1.0-4.8) Monocytes # (Auto) 1.1 x10^3/uL (0.0-1.1) Eosinophils # (Auto) 0.2 x10^3/uL (0.0-0.7) Basophils # (Auto) 0.2 x10^3/uL (0.0-0.2) Segmented Neutrophils % 69 % (35-66) Band Neutrophils % 13 % (0-9) Lymphocytes % 13 % (24-48) Monocytes % 4 % (0-10) Eosinophils % 1 % (0-5) Toxic Granulation Slight Platelet Estimate Adequate (ADEQUATE) Sodium Level 167 mmol/L (136-145) Potassium Level 4.2 mmol/L (3.5-5.1) Chloride Level 124 mmol/L (98-107) Carbon Dioxide Level 24 mmol/L (21-32) Anion Gap 19 (6-14) Blood Urea Nitrogen 76 mg/dL (8-26) Creatinine 5.1 mg/dL (0.7-1.3) Estimated GFR (Cockcroft-Gault) 10.8 BUN/Creatinine Ratio 15 (6-20) Glucose Level 250 mg/dL (70-99) Lactic Acid Level 4.7 mmol/L (0.4-2.0) 4.0 mmol/L (0.4-2.0) Calcium Level 9.5 mg/dL (8.5-10.1) Total Bilirubin 0.7 mg/dL (0.2-1.0) Aspartate Amino Transf (AST/SGOT) 41 U/L (15-37) Alanine Aminotransferase (ALT/SGPT) 34 U/L (16-63) Alkaline Phosphatase 136 U/L (46-116) Total Protein 8.6 g/dL (6.4-8.2) Albumin 3.2 g/dL (3.4-5.0) Albumin/Globulin Ratio 0.6 (1.0-1.7) Lipase 134 U/L (73-393) Urine Collection Type U cath Urine Color Dk yellow Urine Clarity Clear Urine pH 5.5 Urine Specific [place] >=1.030 Urine Protein Negative mg/dL (NEG-TRACE) Urine Glucose (UA) Negative mg/dL (NEG) Urine Ketones (Stick) Trace mg/dL (NEG) Urine Blood Small (NEG) Urine Nitrite Negative (NEG) Urine Bilirubin Small (NEG) Urine Urobilinogen Dipstick 0.2 mg/dL (0.2 mg/dL) Urine Leukocyte Esterase Negative (NEG) Urine RBC Rare /HPF (0-2) Urine WBC 0 /HPF (0-4) Urine Transitional Epithelial Cells Few /LPF Urine Bacteria 0 /HPF (0-FEW) Urine Hyaline Casts Many /HPF Urine Mucus Mod /LPF Glucose (Fingerstick) 226 mg/dL (70-99) Test 04/05/17 03:00 04/05/17 07:22 White Blood Count 14.0 x10^3/uL (4.0-11.0) Red Blood Count 4.71 x10^6/uL (4.30-5.70) Hemoglobin 13.5 g/dL (13.0-17.5) Hematocrit 44.9 % (39.0-53.0) Mean Corpuscular Volume 95 fL (79-100) Mean Corpuscular Hemoglobin 29 pg (25-35) Mean Corpuscular Hemoglobin Concent 30 g/dL (31-37) Red Cell Distribution Width 17.5 % (11.5-14.5) Platelet Count 158 x10^3/uL (140-400) Neutrophils (%) (Auto) 75 % (31-73) Lymphocytes (%) (Auto) 17 % (24-48) Monocytes (%) (Auto) 6 % (0-9) Eosinophils (%) (Auto) 1 % (0-3) Basophils (%) (Auto) 1 % (0-3) Neutrophils # (Auto) 10.5 x10^3uL (1.8-7.7) Lymphocytes # (Auto) 2.3 x10^3/uL (1.0-4.8) Monocytes # (Auto) 0.9 x10^3/uL (0.0-1.1) Eosinophils # (Auto) 0.1 x10^3/uL (0.0-0.7) Basophils # (Auto) 0.1 x10^3/uL (0.0-0.2) Sodium Level 168 mmol/L (136-145) Potassium Level 4.4 mmol/L (3.5-5.1) Chloride Level 125 mmol/L (98-107) Carbon Dioxide Level 25 mmol/L (21-32) Anion Gap 18 (6-14) Blood Urea Nitrogen 78 mg/dL (8-26) Creatinine 4.7 mg/dL (0.7-1.3) Estimated GFR (Cockcroft-Gault) 11.8 Glucose Level 224 mg/dL (70-99) Calcium Level 8.6 mg/dL (8.5-10.1) Glucose (Fingerstick) 136 mg/dL (70-99) Laboratory Tests Test 04/04/17 13:40 04/04/17 13:58 04/04/17 20:00 04/04/17 20:46 White Blood Count 16.9 x10^3/uL (4.0-11.0) Red Blood Count 5.31 x10^6/uL (4.30-5.70) Hemoglobin 15.2 g/dL (13.0-17.5) Hematocrit 48.7 % (39.0-53.0) Mean Corpuscular Volume 92 fL (79-100) Mean Corpuscular Hemoglobin 29 pg (25-35) Mean Corpuscular Hemoglobin Concent 31 g/dL (31-37) Red Cell Distribution Width 16.9 % (11.5-14.5) Platelet Count 201 x10^3/uL (140-400) Neutrophils (%) (Auto) 83 % (31-73) Lymphocytes (%) (Auto) 8 % (24-48) Monocytes (%) (Auto) 6 % (0-9) Eosinophils (%) (Auto) 1 % (0-3) Basophils (%) (Auto) 1 % (0-3) Neutrophils # (Auto) 14.1 x10^3uL (1.8-7.7) Lymphocytes # (Auto) 1.4 x10^3/uL (1.0-4.8) Monocytes # (Auto) 1.1 x10^3/uL (0.0-1.1) Eosinophils # (Auto) 0.2 x10^3/uL (0.0-0.7) Basophils # (Auto) 0.2 x10^3/uL (0.0-0.2) Segmented Neutrophils % 69 % (35-66) Band Neutrophils % 13 % (0-9) Lymphocytes % 13 % (24-48) Monocytes % 4 % (0-10) Eosinophils % 1 % (0-5) Toxic Granulation Slight Platelet Estimate Adequate (ADEQUATE) Sodium Level 167 mmol/L (136-145) Potassium Level 4.2 mmol/L (3.5-5.1) Chloride Level 124 mmol/L (98-107) Carbon Dioxide Level 24 mmol/L (21-32) Anion Gap 19 (6-14) Blood Urea Nitrogen 76 mg/dL (8-26) Creatinine 5.1 mg/dL (0.7-1.3) Estimated GFR (Cockcroft-Gault) 10.8 BUN/Creatinine Ratio 15 (6-20) Glucose Level 250 mg/dL (70-99) Lactic Acid Level 4.7 mmol/L (0.4-2.0) 4.0 mmol/L (0.4-2.0) Calcium Level 9.5 mg/dL (8.5-10.1) Total Bilirubin 0.7 mg/dL (0.2-1.0) Aspartate Amino Transf (AST/SGOT) 41 U/L (15-37) Alanine Aminotransferase (ALT/SGPT) 34 U/L (16-63) Alkaline Phosphatase 136 U/L (46-116) Total Protein 8.6 g/dL (6.4-8.2) Albumin 3.2 g/dL (3.4-5.0) Albumin/Globulin Ratio 0.6 (1.0-1.7) Lipase 134 U/L (73-393) Urine Collection Type U cath Urine Color Dk yellow Urine Clarity Clear Urine pH 5.5 Urine Specific [place] >=1.030 Urine Protein Negative mg/dL (NEG-TRACE) Urine Glucose (UA) Negative mg/dL (NEG) Urine Ketones (Stick) Trace mg/dL (NEG) Urine Blood Small (NEG) Urine Nitrite Negative (NEG) Urine Bilirubin Small (NEG) Urine Urobilinogen Dipstick 0.2 mg/dL (0.2 mg/dL) Urine Leukocyte Esterase Negative (NEG) Urine RBC Rare /HPF (0-2) Urine WBC 0 /HPF (0-4) Urine Transitional Epithelial Cells Few /LPF Urine Bacteria 0 /HPF (0-FEW) Urine Hyaline Casts Many /HPF Urine Mucus Mod /LPF Glucose (Fingerstick) 226 mg/dL (70-99) Test 04/05/17 03:00 04/05/17 07:22 White Blood Count 14.0 x10^3/uL (4.0-11.0) Red Blood Count 4.71 x10^6/uL (4.30-5.70) Hemoglobin 13.5 g/dL (13.0-17.5) Hematocrit 44.9 % (39.0-53.0) Mean Corpuscular Volume 95 fL (79-100) Mean Corpuscular Hemoglobin 29 pg (25-35) Mean Corpuscular Hemoglobin Concent 30 g/dL (31-37) Red Cell Distribution Width 17.5 % (11.5-14.5) Platelet Count 158 x10^3/uL (140-400) Neutrophils (%) (Auto) 75 % (31-73) Lymphocytes (%) (Auto) 17 % (24-48) Monocytes (%) (Auto) 6 % (0-9) Eosinophils (%) (Auto) 1 % (0-3) Basophils (%) (Auto) 1 % (0-3) Neutrophils # (Auto) 10.5 x10^3uL (1.8-7.7) Lymphocytes # (Auto) 2.3 x10^3/uL (1.0-4.8) Monocytes # (Auto) 0.9 x10^3/uL (0.0-1.1) Eosinophils # (Auto) 0.1 x10^3/uL (0.0-0.7) Basophils # (Auto) 0.1 x10^3/uL (0.0-0.2) Sodium Level 168 mmol/L (136-145) Potassium Level 4.4 mmol/L (3.5-5.1) Chloride Level 125 mmol/L (98-107) Carbon Dioxide Level 25 mmol/L (21-32) Anion Gap 18 (6-14) Blood Urea Nitrogen 78 mg/dL (8-26) Creatinine 4.7 mg/dL (0.7-1.3) Estimated GFR (Cockcroft-Gault) 11.8 Glucose Level 224 mg/dL (70-99) Calcium Level 8.6 mg/dL (8.5-10.1) Glucose (Fingerstick) 136 mg/dL (70-99) Images Images ECHO: DATE: 06/01/14 The left ventricle is normal size. Left ventricle systolic function is normal. The Ejection Fraction is 55-60%. There is no significant aortic valvular stenosis. Doppler and Color Flow revealed no significant aortic regurgitation. Doppler and Color Flow revealed trace mitral valve regurgitation. Doppler and Color Flow revealed mild tricuspid regurgitation. The PA pressure was estimated at 34 mmHg. There is no evidence of significant pericardial effusion. Renal US: DATE: 05/30/14 1559 Impression: 1. There is no hydronephrosis of either kidney. There is thinning of the renal cortex bilaterally, also some increased echogenicity which may be seen with medical renal disease. 2. There is a hypoechoic lesion of the left kidney suboptimally visualized on this exam, sonographic findings more suggestive of a cyst. KINJAL CLAUDIO MD Apr 05, 2017 09:39
[2017-04-05] MEDS: AMINO AC 3%/ELECTROLYTE/GLYCER 1,000 ML IV SCH ×2 (09:45→21:58)
[2017-04-05] MEDS ORDERED: IV NORMAL SALINE 500ML BAG 500 ML IV PRN (09:45)
[2017-04-05] MEDS ORDERED: MAGNESIUM SULFATE 2GM 50 ML IV PRN (09:45)
[2017-04-05 10:11] LABS: URIC ACID 15.4 mg/dL (3.5-7.2)
[2017-04-05 10:30] VITALS: BP 111/50
--- NOTE | 2017-04-05 11:36 | RAD ---
COMPLETE RENAL ULTRASOUND Indication: Acute renal failure/chronic kidney disease Comparison: None. Procedure: Transabdominal ultrasound images are obtained of the kidneys and bladder. Findings: The kidneys demonstrate normal morphology and echotexture. There is focal cortical thinning of the interpolar right kidney There is no hydronephrosis. The right kidney measures 9.2 cm. The left kidney measures 9.2 cm. The bladder contains Boone catheter and is decompressed and cannot be evaluated. IMPRESSION: 1. No hydronephrosis. 2. Focal cortical thinning of the right kidney.
[2017-04-05 14:30] VITALS: BP 95/47
--- NOTE | 2017-04-05 16:14 | PDOC ---
Infectious Disease Note ROS ROS Vital Sign Vital Signs Vital Signs Date Time Temp Pulse Resp B/P (MAP) Pulse Ox O2 Delivery O2 Flow Rate FiO2 04/05/17 14:30 97.7 78 18 95/47 (63) 99 Nasal Cannula 2.0 97.7 Labs Lab Laboratory Tests Test 04/04/17 20:00 04/04/17 20:46 04/05/17 03:00 04/05/17 07:22 Lactic Acid Level 4.0 mmol/L (0.4-2.0) Glucose (Fingerstick) 226 mg/dL (70-99) 136 mg/dL (70-99) White Blood Count 14.0 x10^3/uL (4.0-11.0) Red Blood Count 4.71 x10^6/uL (4.30-5.70) Hemoglobin 13.5 g/dL (13.0-17.5) Hematocrit 44.9 % (39.0-53.0) Mean Corpuscular Volume 95 fL (79-100) Mean Corpuscular Hemoglobin 29 pg (25-35) Mean Corpuscular Hemoglobin Concent 30 g/dL (31-37) Red Cell Distribution Width 17.5 % (11.5-14.5) Platelet Count 158 x10^3/uL (140-400) Neutrophils (%) (Auto) 75 % (31-73) Lymphocytes (%) (Auto) 17 % (24-48) Monocytes (%) (Auto) 6 % (0-9) Eosinophils (%) (Auto) 1 % (0-3) Basophils (%) (Auto) 1 % (0-3) Neutrophils # (Auto) 10.5 x10^3uL (1.8-7.7) Lymphocytes # (Auto) 2.3 x10^3/uL (1.0-4.8) Monocytes # (Auto) 0.9 x10^3/uL (0.0-1.1) Eosinophils # (Auto) 0.1 x10^3/uL (0.0-0.7) Basophils # (Auto) 0.1 x10^3/uL (0.0-0.2) Sodium Level 168 mmol/L (136-145) Potassium Level 4.4 mmol/L (3.5-5.1) Chloride Level 125 mmol/L (98-107) Carbon Dioxide Level 25 mmol/L (21-32) Anion Gap 18 (6-14) Blood Urea Nitrogen 78 mg/dL (8-26) Creatinine 4.7 mg/dL (0.7-1.3) Estimated GFR (Cockcroft-Gault) 11.8 Glucose Level 224 mg/dL (70-99) Uric Acid 15.4 mg/dL (3.5-7.2) Calcium Level 8.6 mg/dL (8.5-10.1) Creatine Kinase 107 U/L (39-308) Test 04/05/17 10:15 04/05/17 11:19 Lactic Acid Level 2.4 mmol/L (0.4-2.0) Glucose (Fingerstick) 133 mg/dL (70-99) Micro BLOOD CULTURE Preliminary NO GROWTH AFTER 1 DAY Objective Assessment Leukocytosis Lactic acidosis s/p right hip hemiarthroplasty, Mar [address] Burgess, now + drainage Acute encephalopathy, improving JOSEFINA Dehydration Alzheimer's Plan Plan of Care Hold vanc in setting of decrease renal function Continue Zosyn BC NGTD Await ortho evaluation f/u am labs and cultures Thank you [id number] NIALL MOHAN APRN Apr 05, 2017 16:14
--- NOTE | 2017-04-05 17:28 | CONS ---
DATE OF CONSULTATION: PRIMARY PHYSICIAN: Dr. Alcala in the ER and Dr. Vasquez. REASON FOR CONSULTATION: Acute renal failure. HISTORY OF PRESENT ILLNESS: The patient is an 86-year-old gentleman from a local [facility]. He was brought here due to decreased interactiveness and presumed mental status changes. He was noted to be increasingly agitated. The patient was apparently obtunded in the Emergency Room, no family was available. He was brought by EMS. The patient is currently nonverbal and is unable to provide much in terms of history and most of it has been obtained from electronic records. Reviewing his recent records, as of 02/2017 his creatinine has been running in the 1.4-1.5 range. Imaging studies as well as echocardiogram was reviewed from electronic records and are as listed in my electronic consult note. He was started on half normal saline and his sodium has gone from 167 to 168 and his creatinine has dropped from 5.1 to 4.7 this morning. Urine output is not recorded given the fact that the patient is in a diaper currently, Boone catheter has not been placed. He does appear to attempt to verbalize some; however, it is not known how much he otherwise interacts. He is noted to be on diuretics in his snf. He is noted to be diabetic also; however, recent A1c is not available. For rest of details, see electronic records. KINJAL CLAUDIO MD DR: MARYSOL/aba JOB#: [id number] / [id number]
--- NOTE | 2017-04-05 18:11 | PDOC ---
PROGRESS NOTES Chief Complaint Chief Complaint demented long-term patient severe hypernatremia dehydration. malnutrition\ DM2 History of Present Illness History of Present Illness no event, not very talkative no complaint Vitals Vitals Vital Signs Date Time Temp Pulse Resp B/P (MAP) Pulse Ox O2 Delivery O2 Flow Rate FiO2 04/05/17 14:30 97.7 78 18 95/47 (63) 99 Nasal Cannula 2.0 97.7 Physical Exam General: Cooperative, No acute distress Heart: Regular rate, No murmurs Lungs: Clear Extremities: No clubbing Skin: No rashes Labs LABS Laboratory Tests Test 04/04/17 20:00 04/04/17 20:46 04/05/17 03:00 04/05/17 07:22 Lactic Acid Level 4.0 mmol/L (0.4-2.0) Glucose (Fingerstick) 226 mg/dL (70-99) 136 mg/dL (70-99) White Blood Count 14.0 x10^3/uL (4.0-11.0) Red Blood Count 4.71 x10^6/uL (4.30-5.70) Hemoglobin 13.5 g/dL (13.0-17.5) Hematocrit 44.9 % (39.0-53.0) Mean Corpuscular Volume 95 fL (79-100) Mean Corpuscular Hemoglobin 29 pg (25-35) Mean Corpuscular Hemoglobin Concent 30 g/dL (31-37) Red Cell Distribution Width 17.5 % (11.5-14.5) Platelet Count 158 x10^3/uL (140-400) Neutrophils (%) (Auto) 75 % (31-73) Lymphocytes (%) (Auto) 17 % (24-48) Monocytes (%) (Auto) 6 % (0-9) Eosinophils (%) (Auto) 1 % (0-3) Basophils (%) (Auto) 1 % (0-3) Neutrophils # (Auto) 10.5 x10^3uL (1.8-7.7) Lymphocytes # (Auto) 2.3 x10^3/uL (1.0-4.8) Monocytes # (Auto) 0.9 x10^3/uL (0.0-1.1) Eosinophils # (Auto) 0.1 x10^3/uL (0.0-0.7) Basophils # (Auto) 0.1 x10^3/uL (0.0-0.2) Sodium Level 168 mmol/L (136-145) Potassium Level 4.4 mmol/L (3.5-5.1) Chloride Level 125 mmol/L (98-107) Carbon Dioxide Level 25 mmol/L (21-32) Anion Gap 18 (6-14) Blood Urea Nitrogen 78 mg/dL (8-26) Creatinine 4.7 mg/dL (0.7-1.3) Estimated GFR (Cockcroft-Gault) 11.8 Glucose Level 224 mg/dL (70-99) Uric Acid 15.4 mg/dL (3.5-7.2) Calcium Level 8.6 mg/dL (8.5-10.1) Creatine Kinase 107 U/L (39-308) Test 04/05/17 10:15 04/05/17 11:19 04/05/17 16:32 Lactic Acid Level 2.4 mmol/L (0.4-2.0) Glucose (Fingerstick) 133 mg/dL (70-99) 156 mg/dL (70-99) Review of Systems Review of Systems unable to complete, Assessment and Plan Assessmemt and Plan Problems Medical Problems: (1) Acute renal failure Status: Acute (2) Altered mental status Status: Acute (3) Hypernatremia Status: Acute Problems: Comment Review of Relevant I have reviewed the following items sofie (where applicable) has been applied. Labs Laboratory Tests Test 04/04/17 13:40 04/04/17 13:58 04/04/17 20:00 04/04/17 20:46 White Blood Count 16.9 x10^3/uL (4.0-11.0) Red Blood Count 5.31 x10^6/uL (4.30-5.70) Hemoglobin 15.2 g/dL (13.0-17.5) Hematocrit 48.7 % (39.0-53.0) Mean Corpuscular Volume 92 fL (79-100) Mean Corpuscular Hemoglobin 29 pg (25-35) Mean Corpuscular Hemoglobin Concent 31 g/dL (31-37) Red Cell Distribution Width 16.9 % (11.5-14.5) Platelet Count 201 x10^3/uL (140-400) Neutrophils (%) (Auto) 83 % (31-73) Lymphocytes (%) (Auto) 8 % (24-48) Monocytes (%) (Auto) 6 % (0-9) Eosinophils (%) (Auto) 1 % (0-3) Basophils (%) (Auto) 1 % (0-3) Neutrophils # (Auto) 14.1 x10^3uL (1.8-7.7) Lymphocytes # (Auto) 1.4 x10^3/uL (1.0-4.8) Monocytes # (Auto) 1.1 x10^3/uL (0.0-1.1) Eosinophils # (Auto) 0.2 x10^3/uL (0.0-0.7) Basophils # (Auto) 0.2 x10^3/uL (0.0-0.2) Segmented Neutrophils % 69 % (35-66) Band Neutrophils % 13 % (0-9) Lymphocytes % 13 % (24-48) Monocytes % 4 % (0-10) Eosinophils % 1 % (0-5) Toxic Granulation Slight Platelet Estimate Adequate (ADEQUATE) Sodium Level 167 mmol/L (136-145) Potassium Level 4.2 mmol/L (3.5-5.1) Chloride Level 124 mmol/L (98-107) Carbon Dioxide Level 24 mmol/L (21-32) Anion Gap 19 (6-14) Blood Urea Nitrogen 76 mg/dL (8-26) Creatinine 5.1 mg/dL (0.7-1.3) Estimated GFR (Cockcroft-Gault) 10.8 BUN/Creatinine Ratio 15 (6-20) Glucose Level 250 mg/dL (70-99) Lactic Acid Level 4.7 mmol/L (0.4-2.0) 4.0 mmol/L (0.4-2.0) Calcium Level 9.5 mg/dL (8.5-10.1) Total Bilirubin 0.7 mg/dL (0.2-1.0) Aspartate Amino Transf (AST/SGOT) 41 U/L (15-37) Alanine Aminotransferase (ALT/SGPT) 34 U/L (16-63) Alkaline Phosphatase 136 U/L (46-116) Total Protein 8.6 g/dL (6.4-8.2) Albumin 3.2 g/dL (3.4-5.0) Albumin/Globulin Ratio 0.6 (1.0-1.7) Lipase 134 U/L (73-393) Urine Collection Type U cath Urine Color Dk yellow Urine Clarity Clear Urine pH 5.5 Urine Specific [place] >=1.030 Urine Protein Negative mg/dL (NEG-TRACE) Urine Glucose (UA) Negative mg/dL (NEG) Urine Ketones (Stick) Trace mg/dL (NEG) Urine Blood Small (NEG) Urine Nitrite Negative (NEG) Urine Bilirubin Small (NEG) Urine Urobilinogen Dipstick 0.2 mg/dL (0.2 mg/dL) Urine Leukocyte Esterase Negative (NEG) Urine RBC Rare /HPF (0-2) Urine WBC 0 /HPF (0-4) Urine Transitional Epithelial Cells Few /LPF Urine Bacteria 0 /HPF (0-FEW) Urine Hyaline Casts Many /HPF Urine Mucus Mod /LPF Glucose (Fingerstick) 226 mg/dL (70-99) Test 04/05/17 03:00 04/05/17 07:22 04/05/17 10:15 04/05/17 11:19 White Blood Count 14.0 x10^3/uL (4.0-11.0) Red Blood Count 4.71 x10^6/uL (4.30-5.70) Hemoglobin 13.5 g/dL (13.0-17.5) Hematocrit 44.9 % (39.0-53.0) Mean Corpuscular Volume 95 fL (79-100) Mean Corpuscular Hemoglobin 29 pg (25-35) Mean Corpuscular Hemoglobin Concent 30 g/dL (31-37) Red Cell Distribution Width 17.5 % (11.5-14.5) Platelet Count 158 x10^3/uL (140-400) Neutrophils (%) (Auto) 75 % (31-73) Lymphocytes (%) (Auto) 17 % (24-48) Monocytes (%) (Auto) 6 % (0-9) Eosinophils (%) (Auto) 1 % (0-3) Basophils (%) (Auto) 1 % (0-3) Neutrophils # (Auto) 10.5 x10^3uL (1.8-7.7) Lymphocytes # (Auto) 2.3 x10^3/uL (1.0-4.8) Monocytes # (Auto) 0.9 x10^3/uL (0.0-1.1) Eosinophils # (Auto) 0.1 x10^3/uL (0.0-0.7) Basophils # (Auto) 0.1 x10^3/uL (0.0-0.2) Sodium Level 168 mmol/L (136-145) Potassium Level 4.4 mmol/L (3.5-5.1) Chloride Level 125 mmol/L (98-107) Carbon Dioxide Level 25 mmol/L (21-32) Anion Gap 18 (6-14) Blood Urea Nitrogen 78 mg/dL (8-26) Creatinine 4.7 mg/dL (0.7-1.3) Estimated GFR (Cockcroft-Gault) 11.8 Glucose Level 224 mg/dL (70-99) Uric Acid 15.4 mg/dL (3.5-7.2) Calcium Level 8.6 mg/dL (8.5-10.1) Creatine Kinase 107 U/L (39-308) Glucose (Fingerstick) 136 mg/dL (70-99) 133 mg/dL (70-99) Lactic Acid Level 2.4 mmol/L (0.4-2.0) Test 04/05/17 16:32 Glucose (Fingerstick) 156 mg/dL (70-99) Laboratory Tests Test 04/04/17 20:00 04/04/17 20:46 04/05/17 03:00 04/05/17 07:22 Lactic Acid Level 4.0 mmol/L (0.4-2.0) Glucose (Fingerstick) 226 mg/dL (70-99) 136 mg/dL (70-99) White Blood Count 14.0 x10^3/uL (4.0-11.0) Red Blood Count 4.71 x10^6/uL (4.30-5.70) Hemoglobin 13.5 g/dL (13.0-17.5) Hematocrit 44.9 % (39.0-53.0) Mean Corpuscular Volume 95 fL (79-100) Mean Corpuscular Hemoglobin 29 pg (25-35) Mean Corpuscular Hemoglobin Concent 30 g/dL (31-37) Red Cell Distribution Width 17.5 % (11.5-14.5) Platelet Count 158 x10^3/uL (140-400) Neutrophils (%) (Auto) 75 % (31-73) Lymphocytes (%) (Auto) 17 % (24-48) Monocytes (%) (Auto) 6 % (0-9) Eosinophils (%) (Auto) 1 % (0-3) Basophils (%) (Auto) 1 % (0-3) Neutrophils # (Auto) 10.5 x10^3uL (1.8-7.7) Lymphocytes # (Auto) 2.3 x10^3/uL (1.0-4.8) Monocytes # (Auto) 0.9 x10^3/uL (0.0-1.1) Eosinophils # (Auto) 0.1 x10^3/uL (0.0-0.7) Basophils # (Auto) 0.1 x10^3/uL (0.0-0.2) Sodium Level 168 mmol/L (136-145) Potassium Level 4.4 mmol/L (3.5-5.1) Chloride Level 125 mmol/L (98-107) Carbon Dioxide Level 25 mmol/L (21-32) Anion Gap 18 (6-14) Blood Urea Nitrogen 78 mg/dL (8-26) Creatinine 4.7 mg/dL (0.7-1.3) Estimated GFR (Cockcroft-Gault) 11.8 Glucose Level 224 mg/dL (70-99) Uric Acid 15.4 mg/dL (3.5-7.2) Calcium Level 8.6 mg/dL (8.5-10.1) Creatine Kinase 107 U/L (39-308) Test 04/05/17 10:15 04/05/17 11:19 04/05/17 16:32 Lactic Acid Level 2.4 mmol/L (0.4-2.0) Glucose (Fingerstick) 133 mg/dL (70-99) 156 mg/dL (70-99) Microbiology 04/04/17 Blood Culture - Preliminary, Resulted NO GROWTH AFTER 1 DAY Medications Current Medications Piperacillin Sod/ Tazobactam Sod (Zosyn Per Pharmacy) 1 each PRN DAILY PRN MC SEE COMMENTS; Start 04/04/17 at 16:15 Vancomycin HCl (Vanco Per Pharmacy) 1 each PRN DAILY PRN MC SEE COMMENTS Last administered on 04/05/17 09:33; Start 04/04/17 at 16:15 Vancomycin HCl 1.75 gm/Dextrose 500 ml @ 250 mls/hr 1X ONCE IV Last administered on 04/04/17 16:54; Start 04/04/17 at 16:30; Stop 04/04/17 at 18 :29; Status DC Piperacillin Sod/ Tazobactam Sod (Zosyn) 2.25 gm 1X ONCE IVP Last administered on 04/04/17 16:53; Start 04/04/17 at 16:30; Stop 04/04/17 at 16 :31; Status DC Sodium Chloride 1,000 ml @ 1,000 mls/hr 1X ONCE IV Last administered on 04/04 16:54; Start 04/04/17 at 16:30; Stop 04/04/17 at 17:29; Status DC Sodium Chloride 1,000 ml @ 1,000 mls/hr 1X ONCE IV Last administered on 04/04 16:54; Start 04/04/17 at 16:30; Stop 04/04/17 at 17:29; Status DC Ondansetron HCl (Zofran) 4 mg PRN Q8HRS PRN IV NAUSEA/VOMITING; Start at 16:30; Stop 04/05/17 at 16:29; Status DC Fentanyl Citrate (Fentanyl 2ml Vial) 50 mcg PRN Q1HR PRN IV PAIN; Start at 16:30; Stop 04/04/17 at 20:31; Status DC Sodium Chloride 1,000 ml @ 200 mls/hr Q5H IV Last administered on 04/05/17 00:00; Start 04/04/17 at 16:19; Stop 04/05/17 at 06:30; Status DC Acetaminophen (Tylenol) 650 mg PRN Q4HRS PRN PO FEVER; Start 04/04/17 at 16:30 ; Stop 04/05/17 at 09:40; Status DC Piperacillin Sod/ Tazobactam Sod (Zosyn) 2.25 gm Q8HRS IVP Last administered on 04/05/17 14:04; Start 04/04/17 at 23:00 Vancomycin HCl 1 each 1X ONCE MC ; Start 04/06/17 at 17:00; Stop 04/06/17 at 17:01 Acetaminophen (Tylenol) 650 mg PRN Q4HRS PRN PO MILD PAIN/TEMP; Start at 20:30 Ipratropium [place] (Atrovent) 0.2 mg PRN Q6HRS PRN NEB SHORTNESS OF BREATH; Start 04/04/17 at 20:30 Insulin Detemir (Levemir) 7 units BID SQ Last administered on 04/05/17 08:19 ; Start 04/04/17 at 21:00 Insulin Aspart (NovoLOG) 0-5 UNITS TIDWMEALS SQ ; Start 04/05/17 at 08:00 Dextrose (Dextrose 50%-Water Syringe) 12.5 gm PRN Q15MIN PRN IV SEE COMMENTS; Start 04/04/17 at 20:30 Sodium Chloride 1,000 ml @ 200 mls/hr Q5H IV Last administered on 04/05/17 06:11; Start 04/05/17 at 06:15; Stop 04/05/17 at 09:49; Status DC Magnesium Sulfate/ Dextrose 50 ml @ 25 mls/hr PRN DAILY PRN IV for Mag < 1.7 on am labs; Start 04/05/17 at 09:45 Amino Acids/ Glycerin/ Electrolytes 1,000 ml @ 80 mls/hr [id number] IV Last administered on 04/05/17 09:45; Start 04/05/17 at 09:45 Sodium Chloride 500 ml @ 0 mls/hr QID PRN IV UO< 30cc/hr over previous 6hrs; Start 04/05/17 at 09:45 Active Scripts Active Reported Tylenol (Acetaminophen) 325 Mg Tablet 2 Tab PO PRN Q4HRS Tramadol Hcl 50 Mg Tablet 1 Tab PO PRN Q6HRS Terbinafine Hcl 250 Mg Tablet 1 Tab PO DAILY Senokot-S Tablet (Sennosides/Docusate Sodium) 1 Each Tablet 2 Tab PO BID Seroquel (Quetiapine Fumarate) 25 Mg Tablet 1 Tab PO BID Oxycodone Hcl 5 Mg Tablet 0.5 Tab PO Q4HRS Novolog (Insulin Aspart) 100 Unit/1 Ml Cartridge 100 Unit SQ Miralax (Polyethylene Glycol 3350) 17 Gm Powd.pack 1 Packet PO DAILY Metformin Hcl 500 Mg Tablet 500 Mg PO BIDWMEALS Dulcolax (Bisacodyl) 5 Mg Tablet.dr 5 Mg PO DAILY Alprazolam 0.5 Mg Tablet 0.5 Mg PO PRN Q8HRS PRN Ipratropium [place] 0.2 Mg/1 Ml Solution 1 Vial NEB PRN Q6HRS PRN Aricept (Donepezil Hcl) 10 Mg Tablet 1 Tab PO DAILY Lasix (Furosemide) 20 Mg Tablet 1.5 Tab PO DAILY Levemir (Insulin Detemir) 100 Unit/1 Ml Vial 14 Unit SQ DAILY08 Levothyroxine Sodium 50 Mcg Tablet 1 Tab PO DAILY Namenda (Memantine Hcl) 10 Mg Tablet 10 Mg PO AFTRNOON Potassium Chloride Oral Liquid (Potassium Chloride) 20 Meq/15 Ml Liquid 7.5 Meq PO DAILY Simvastatin 10 Mg Tablet 0.5 Tab PO QHS Levemir (Insulin Detemir) 100 Unit/1 Ml Vial 14 Unit SQ HS Valproic Acid (Valproate Sodium) 250 Mg/5 Ml Solution 375 Mg PO BID Melatonin 3 Mg Tablet 1 Tab PO QHS Vitamin B-12 (Cyanocobalamin (Vitamin B-12)) 1,000 Mcg Tablet 500 Mcg PO DAILY Vitals/I & O Vital Sign - Last 24 Hours 04/04/17 04/04/17 04/04/17 04/04/17 19:00 20:00 20:51 23:00 Temp 98.7 98.4 98.7 98.4 Pulse 88 79 Resp 18 18 B/P (MAP) 98/50 (66) 95/52 (66) Pulse Ox 97 99 96 O2 Delivery Nasal Cannula Nasal Cannula Nasal Cannula Nasal Cannula O2 Flow Rate 2.0 2.0 2.0 2.0 04/05/17 04/05/17 04/05/17 04/05/17 03:00 07:20 08:00 10:30 Temp 98.2 97.7 97.9 98.2 97.7 97.9 Pulse 78 75 79 Resp 19 18 18 B/P (MAP) 119/46 (70) 102/80 (87) 111/50 (70) Pulse Ox 93 97 95 O2 Delivery Nasal Cannula Nasal Cannula Nasal Cannula Nasal Cannula O2 Flow Rate 2.0 2.0 2.0 2.0 04/05/17 14:30 Temp 97.7 97.7 Pulse 78 Resp 18 B/P (MAP) 95/47 (63) Pulse Ox 99 O2 Delivery Nasal Cannula O2 Flow Rate 2.0 Intake and Output 04/04/17 04/04/17 04/05/17 15:00 23:00 07:00 Intake Total 2500 ml 1212.7 ml Output Total 2 ml Balance 2500 ml 1210.7 ml CHICA MENDOZA MD Apr 05, 2017 18:11
--- NOTE | 2017-04-05 18:50 | CONS ---
DATE OF CONSULTATION: 04/05/2017 REFERRING PROVIDER: Dr. Vasquez. CONSULTING PROVIDER: Aneudy Saarvia MD REASON FOR CONSULTATION: Status post right hip surgery. CHIEF COMPLAINT: Unobtainable secondary to the patient's nonverbal status. He was admitted for acute mental status changes. HISTORY OF PRESENT ILLNESS: The patient is an 86-year-old sn[facility] resident who was brought in for behavior changes to the Emergency Department. Apparently, he is normally easily agitated, but snf staff felt that he was more sedated. ALLERGIES: None. MEDICATIONS: Reviewed, please see MRAD. PAST MEDICAL HISTORY: Alzheimer's, anxiety, depression, diabetes. FAMILY HISTORY: Unknown. SOCIAL HISTORY: He resides in a snf. REVIEW OF SYSTEMS: Unobtainable secondary to the patient's underlying mental status. PAST SURGICAL HISTORY: He underwent a right hip hemiarthroplasty on 03/03/2017 with myself. Otherwise, unknown. PHYSICAL EXAMINATION: GENERAL: The patient is alert. He does respond to voice by turning his head. Otherwise, he is nonverbal and noncommunicative. HEENT: Normocephalic, atraumatic. Extraocular muscles are intact. CARDIOVASCULAR: Regular rate and rhythm. Dorsalis pedis 1+ and symmetric bilaterally. LUNGS: Respirations are symmetric bilaterally and unlabored. ABDOMEN: Soft, nontender. EXTREMITIES: Examination of his right lower extremity reveals the posterolateral hip incision. No appreciable fluctuance or tenderness around this area. LABORATORY DATA: Reviewed. Elevated white blood cells are present. Sodium was 168. IMPRESSION: 1. Hypernatremia. 2. Status post right hip hemiarthroplasty. PLAN: I think, from my standpoint, I have a low suspicion of an infectious etiology to account for his current medical state around his hip. I think if his hypernatremia does not improve with medical management, I think we could consider a CT of his pelvis to look for underlying fluid collection and abscess. I will follow along with this gentleman. ANEUDY SARAVIA MD DR: ESTEVAN/aba JOB#: [id number] / [id number] MTDD
[2017-04-05 19:00] VITALS: BP 99/40
[2017-04-05] MEDS: LINEZOLID 600 MG TABLET PO SCH (21:00)
[2017-04-05 22:46] VITALS: BP 92/36
[2017-04-06 03:00] VITALS: BP 113/51
--- NOTE | 2017-04-06 05:24 | CONS ---
DATE OF CONSULTATION: 04/05/2017 DICTATED BY: Alfred Monteiro APRN. REFERRING PHYSICIAN: Aimee Vasquez M.D. REASON FOR CONSULTATION: Right hip abscess. HISTORY OF PRESENT ILLNESS: This patient is an 86-year-old male with Alzheimer's who was sent to the ER from the correction for evaluation of altered mental status change. He was hypernatremic with acute kidney injury. A CT of the head was negative. He had elevated white blood cell count of 16,000; segs 69% and bands 13% with a lactic acid of 4.7. Urinalysis was unremarkable for infection. Blood cultures are negative to date. During a bed change earlier, the patient's right hip was noted by the nurse to be hard, warm, red with drainage from a small hole. Carlos Donohue had performed a right hemiarthroplasty on 03/03/2017 after the patient fell and sustained a complete right femoral neck fracture. The patient is currently on vancomycin and Zosyn. ID has been asked to consult for further evaluation and antibiotic management. PAST MEDICAL HISTORY: Alzheimer's, dysphagia, seizure disorder, incontinence, osteoarthritis, diabetes mellitus type 2, depression and anxiety. PAST SURGICAL HISTORY: Right hip hemiarthroplasty on 03/03/2017. FAMILY HISTORY: Noncontributory. ALLERGIES: No known drug allergies. MEDICATIONS: Vancomycin and Zosyn. Other medications are available and have been reviewed on the MAR. REVIEW OF SYSTEMS: Unobtainable as this patient is confused. PHYSICAL EXAMINATION: GENERAL: male, babbling, no apparent distress. VITAL SIGNS: Afebrile, blood pressure 95/47, heart rate 78, respiratory rate 18, pulse oximetry 99% on 2 liters nasal cannula, weight 186 pounds and BMI 25. HEENT: The patient is squinting and avoids oral exam. LUNGS: Clear to auscultation. HEART: Normal S1 and S2. No murmur appreciated. ABDOMEN: Nondistended. Bowel sounds active. Soft. No grimace or guarding to palpation. GENITOURINARY: [place] in place. EXTREMITIES: No gross edema or cyanosis. He appears to have a left heel pressure wound. Left heel bandaged. He appears to have a left heel pressure wound. Refer to pictures in chart. His right hip incision is healing well. There is a pin size hole noted with minimal pink-tinged drainage on dressing. The area is warm without redness. Nontender. SKIN: Without rash. NEUROLOGICAL: Alert, disoriented, does not follow commands, nonsensical speech and agitated behavior. LABORATORY DATA: Today's WBC 14.0; hemoglobin 13.5 and platelet count 158,000. Sodium 168, potassium 4.4, creatinine 4.74. BUN 78 and glucose 224. Repeat lactic acid 2.4. Uric acid 15.4. Total bilirubin 0.7, AST 41, ALT 34, creatinine kinase 107, albumin 3.2, lipase 134. Urinalysis unremarkable for infection. Blood cultures negative to date. Head CT shows chronic, findings without acute intracranial abnormality. Chest x-ray unremarkable. Renal ultrasound shows no hydronephrosis and focal cortical thinning of right kidney. IMPRESSION: 1. Leukocytosis. 2. Lactic acidosis. 3. Status post right hip hemiarthroplasty on 03/03/[address] Olivarez, now with drainage. 4. Acute encephalopathy, improving. 5. Acute kidney injury. 6. Dehydration. 7. Alzheimer's. PLAN: will empirically cover with antibiotics pending c/s data Rt NICK site looks ok on our exam today, no drainage noted Due to decreased renal function, we will hold vancomycin. Start zyvox. Continue the Zosyn. Await ortho evaluation. We will follow up on the morning laboratory values and cultures. Thank you, Dr. Vasquez, for asking us to participate in this patient's care. Should you have further questions or concerns, please call. JUNIOR CLAUDIO MD DR: JORGE/aba JOB#: [id number] / [id number] LILLIAM
[2017-04-06] MEDS: PIPERACILLIN/TAZO IV Push 2.25 GM VIAL. IVP SCH ×2 (05:53→14:09)
[2017-04-06 06:18] LABS: ALBUMIN 2.3 g/dL (3.4-5.0); CALCIUM 8.5 mg/dL (8.5-10.1); CREATININE 2.7 mg/dL (0.7-1.3); GFR 22.5; PHOSPHORUS 2.9 mg/dL (2.6-4.7); POTASSIUM 3.9 mmol/L (3.5-5.1)
[2017-04-06 07:00] VITALS: BP 110/48
--- NOTE | 2017-04-06 07:49 | PDOC ---
ORTHO PROGRESS NOTES Subjective Nonverbal Vitals Vital Signs Date Time Temp Pulse Resp B/P (MAP) Pulse Ox O2 Delivery O2 Flow Rate FiO2 04/06/17 03:00 97.8 75 17 113/51 (71) 96 Room Air 97.8 04/05/17 19:25 2.0 Labs Laboratory Tests Test 04/04/17 13:40 04/04/17 13:58 04/04/17 20:00 04/04/17 20:46 White Blood Count 16.9 x10^3/uL (4.0-11.0) Red Blood Count 5.31 x10^6/uL (4.30-5.70) Hemoglobin 15.2 g/dL (13.0-17.5) Hematocrit 48.7 % (39.0-53.0) Mean Corpuscular Volume 92 fL (79-100) Mean Corpuscular Hemoglobin 29 pg (25-35) Mean Corpuscular Hemoglobin Concent 31 g/dL (31-37) Red Cell Distribution Width 16.9 % (11.5-14.5) Platelet Count 201 x10^3/uL (140-400) Neutrophils (%) (Auto) 83 % (31-73) Lymphocytes (%) (Auto) 8 % (24-48) Monocytes (%) (Auto) 6 % (0-9) Eosinophils (%) (Auto) 1 % (0-3) Basophils (%) (Auto) 1 % (0-3) Neutrophils # (Auto) 14.1 x10^3uL (1.8-7.7) Lymphocytes # (Auto) 1.4 x10^3/uL (1.0-4.8) Monocytes # (Auto) 1.1 x10^3/uL (0.0-1.1) Eosinophils # (Auto) 0.2 x10^3/uL (0.0-0.7) Basophils # (Auto) 0.2 x10^3/uL (0.0-0.2) Segmented Neutrophils % 69 % (35-66) Band Neutrophils % 13 % (0-9) Lymphocytes % 13 % (24-48) Monocytes % 4 % (0-10) Eosinophils % 1 % (0-5) Toxic Granulation Slight Platelet Estimate Adequate (ADEQUATE) Sodium Level 167 mmol/L (136-145) Potassium Level 4.2 mmol/L (3.5-5.1) Chloride Level 124 mmol/L (98-107) Carbon Dioxide Level 24 mmol/L (21-32) Anion Gap 19 (6-14) Blood Urea Nitrogen 76 mg/dL (8-26) Creatinine 5.1 mg/dL (0.7-1.3) Estimated GFR (Cockcroft-Gault) 10.8 BUN/Creatinine Ratio 15 (6-20) Glucose Level 250 mg/dL (70-99) Lactic Acid Level 4.7 mmol/L (0.4-2.0) 4.0 mmol/L (0.4-2.0) Calcium Level 9.5 mg/dL (8.5-10.1) Total Bilirubin 0.7 mg/dL (0.2-1.0) Aspartate Amino Transf (AST/SGOT) 41 U/L (15-37) Alanine Aminotransferase (ALT/SGPT) 34 U/L (16-63) Alkaline Phosphatase 136 U/L (46-116) Total Protein 8.6 g/dL (6.4-8.2) Albumin 3.2 g/dL (3.4-5.0) Albumin/Globulin Ratio 0.6 (1.0-1.7) Lipase 134 U/L (73-393) Urine Collection Type U cath Urine Color Dk yellow Urine Clarity Clear Urine pH 5.5 Urine Specific [place] >=1.030 Urine Protein Negative mg/dL (NEG-TRACE) Urine Glucose (UA) Negative mg/dL (NEG) Urine Ketones (Stick) Trace mg/dL (NEG) Urine Blood Small (NEG) Urine Nitrite Negative (NEG) Urine Bilirubin Small (NEG) Urine Urobilinogen Dipstick 0.2 mg/dL (0.2 mg/dL) Urine Leukocyte Esterase Negative (NEG) Urine RBC Rare /HPF (0-2) Urine WBC 0 /HPF (0-4) Urine Transitional Epithelial Cells Few /LPF Urine Bacteria 0 /HPF (0-FEW) Urine Hyaline Casts Many /HPF Urine Mucus Mod /LPF Glucose (Fingerstick) 226 mg/dL (70-99) Test 04/05/17 03:00 04/05/17 07:22 04/05/17 10:15 04/05/17 10:25 White Blood Count 14.0 x10^3/uL (4.0-11.0) Red Blood Count 4.71 x10^6/uL (4.30-5.70) Hemoglobin 13.5 g/dL (13.0-17.5) Hematocrit 44.9 % (39.0-53.0) Mean Corpuscular Volume 95 fL (79-100) Mean Corpuscular Hemoglobin 29 pg (25-35) Mean Corpuscular Hemoglobin Concent 30 g/dL (31-37) Red Cell Distribution Width 17.5 % (11.5-14.5) Platelet Count 158 x10^3/uL (140-400) Neutrophils (%) (Auto) 75 % (31-73) Lymphocytes (%) (Auto) 17 % (24-48) Monocytes (%) (Auto) 6 % (0-9) Eosinophils (%) (Auto) 1 % (0-3) Basophils (%) (Auto) 1 % (0-3) Neutrophils # (Auto) 10.5 x10^3uL (1.8-7.7) Lymphocytes # (Auto) 2.3 x10^3/uL (1.0-4.8) Monocytes # (Auto) 0.9 x10^3/uL (0.0-1.1) Eosinophils # (Auto) 0.1 x10^3/uL (0.0-0.7) Basophils # (Auto) 0.1 x10^3/uL (0.0-0.2) Sodium Level 168 mmol/L (136-145) Potassium Level 4.4 mmol/L (3.5-5.1) Chloride Level 125 mmol/L (98-107) Carbon Dioxide Level 25 mmol/L (21-32) Anion Gap 18 (6-14) Blood Urea Nitrogen 78 mg/dL (8-26) Creatinine 4.7 mg/dL (0.7-1.3) Estimated GFR (Cockcroft-Gault) 11.8 Glucose Level 224 mg/dL (70-99) Uric Acid 15.4 mg/dL (3.5-7.2) Calcium Level 8.6 mg/dL (8.5-10.1) Creatine Kinase 107 U/L (39-308) Glucose (Fingerstick) 136 mg/dL (70-99) Lactic Acid Level 2.4 mmol/L (0.4-2.0) Urine Random Sodium 106 mmol/L (Not Estab.) Test 04/05/17 11:19 04/05/17 16:32 04/05/17 19:58 04/06/17 05:00 Glucose (Fingerstick) 133 mg/dL (70-99) 156 mg/dL (70-99) 158 mg/dL (70-99) Hemoglobin 12.1 g/dL (13.0-17.5) Sodium Level 164 mmol/L (136-145) Potassium Level 3.9 mmol/L (3.5-5.1) Chloride Level 129 mmol/L (98-107) Carbon Dioxide Level 25 mmol/L (21-32) Anion Gap 10 (6-14) Blood Urea Nitrogen 49 mg/dL (8-26) Creatinine 2.7 mg/dL (0.7-1.3) Estimated GFR (Cockcroft-Gault) 22.5 Glucose Level 175 mg/dL (70-99) Lactic Acid Level 1.8 mmol/L (0.4-2.0) Calcium Level 8.5 mg/dL (8.5-10.1) Phosphorus Level 2.9 mg/dL (2.6-4.7) Magnesium Level 3.0 mg/dL (1.8-2.4) Albumin 2.3 g/dL (3.4-5.0) Laboratory Tests Test 04/05/17 10:15 04/05/17 10:25 04/05/17 11:19 04/05/17 16:32 Lactic Acid Level 2.4 mmol/L (0.4-2.0) Urine Random Sodium 106 mmol/L (Not Estab.) Glucose (Fingerstick) 133 mg/dL (70-99) 156 mg/dL (70-99) Test 04/05/17 19:58 04/06/17 05:00 Glucose (Fingerstick) 158 mg/dL (70-99) Hemoglobin 12.1 g/dL (13.0-17.5) Sodium Level 164 mmol/L (136-145) Potassium Level 3.9 mmol/L (3.5-5.1) Chloride Level 129 mmol/L (98-107) Carbon Dioxide Level 25 mmol/L (21-32) Anion Gap 10 (6-14) Blood Urea Nitrogen 49 mg/dL (8-26) Creatinine 2.7 mg/dL (0.7-1.3) Estimated GFR (Cockcroft-Gault) 22.5 Glucose Level 175 mg/dL (70-99) Lactic Acid Level 1.8 mmol/L (0.4-2.0) Calcium Level 8.5 mg/dL (8.5-10.1) Phosphorus Level 2.9 mg/dL (2.6-4.7) Magnesium Level 3.0 mg/dL (1.8-2.4) Albumin 2.3 g/dL (3.4-5.0) Notes Awake, lying in bed doesnt verbalize any complaints no appreciable fluctuance around incision Assessment and Plan CT pelvis to check for fluid collection YENNY SARAVIA II, MD Apr 06, 2017 07:49
[2017-04-06] MEDS: INSULIN ASPART 300 UNITS/3 ML INSULN.PEN SQ SCH ×3 (08:00→16:45)
[2017-04-06] MEDS: LINEZOLID 600 MG TABLET PO SCH ×2 (08:02→21:50)
[2017-04-06] MEDS: INSULIN DETEMIR 300 UNITS/3 ML INSULN.PEN. SQ SCH ×2 (08:27→21:52)
--- NOTE | 2017-04-06 09:54 | PDOC ---
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 malnutrition DM2 History of Present Illness History of Present Illness no event, not very talkative no complaint Vitals Vitals Vital Signs Date Time Temp Pulse Resp B/P (MAP) Pulse Ox O2 Delivery O2 Flow Rate FiO2 04/06/17 08:00 Nasal Cannula 2.0 04/06/17 07:00 98.4 75 19 110/48 (68) 96 98.4 Physical Exam General: Alert, Cooperative, No acute distress, Other (disoriented) Heart: Regular rate, No murmurs Lungs: Clear Abdomen: Normal bowel sounds Extremities: No clubbing Skin: No rashes Labs LABS Laboratory Tests Test 04/05/17 10:15 04/05/17 10:25 04/05/17 11:19 04/05/17 16:32 Lactic Acid Level 2.4 mmol/L (0.4-2.0) Urine Random Sodium 106 mmol/L (Not Estab.) Glucose (Fingerstick) 133 mg/dL (70-99) 156 mg/dL (70-99) Test 04/05/17 19:58 04/06/17 05:00 04/06/17 07:51 Glucose (Fingerstick) 158 mg/dL (70-99) 182 mg/dL (70-99) Hemoglobin 12.1 g/dL (13.0-17.5) Sodium Level 164 mmol/L (136-145) Potassium Level 3.9 mmol/L (3.5-5.1) Chloride Level 129 mmol/L (98-107) Carbon Dioxide Level 25 mmol/L (21-32) Anion Gap 10 (6-14) Blood Urea Nitrogen 49 mg/dL (8-26) Creatinine 2.7 mg/dL (0.7-1.3) Estimated GFR (Cockcroft-Gault) 22.5 Glucose Level 175 mg/dL (70-99) Lactic Acid Level 1.8 mmol/L (0.4-2.0) Calcium Level 8.5 mg/dL (8.5-10.1) Phosphorus Level 2.9 mg/dL (2.6-4.7) Magnesium Level 3.0 mg/dL (1.8-2.4) Albumin 2.3 g/dL (3.4-5.0) Review of Systems Review of Systems no Assessment and Plan Assessmemt and Plan Problems Medical Problems: (1) Acute renal failure Status: Acute (2) Altered mental status Status: Acute (3) Hypernatremia Status: Acute Problems: Comment Review of Relevant I have reviewed the following items sofie (where applicable) has been applied. Labs Laboratory Tests Test 04/04/17 13:40 04/04/17 13:58 04/04/17 20:00 04/04/17 20:46 White Blood Count 16.9 x10^3/uL (4.0-11.0) Red Blood Count 5.31 x10^6/uL (4.30-5.70) Hemoglobin 15.2 g/dL (13.0-17.5) Hematocrit 48.7 % (39.0-53.0) Mean Corpuscular Volume 92 fL (79-100) Mean Corpuscular Hemoglobin 29 pg (25-35) Mean Corpuscular Hemoglobin Concent 31 g/dL (31-37) Red Cell Distribution Width 16.9 % (11.5-14.5) Platelet Count 201 x10^3/uL (140-400) Neutrophils (%) (Auto) 83 % (31-73) Lymphocytes (%) (Auto) 8 % (24-48) Monocytes (%) (Auto) 6 % (0-9) Eosinophils (%) (Auto) 1 % (0-3) Basophils (%) (Auto) 1 % (0-3) Neutrophils # (Auto) 14.1 x10^3uL (1.8-7.7) Lymphocytes # (Auto) 1.4 x10^3/uL (1.0-4.8) Monocytes # (Auto) 1.1 x10^3/uL (0.0-1.1) Eosinophils # (Auto) 0.2 x10^3/uL (0.0-0.7) Basophils # (Auto) 0.2 x10^3/uL (0.0-0.2) Segmented Neutrophils % 69 % (35-66) Band Neutrophils % 13 % (0-9) Lymphocytes % 13 % (24-48) Monocytes % 4 % (0-10) Eosinophils % 1 % (0-5) Toxic Granulation Slight Platelet Estimate Adequate (ADEQUATE) Sodium Level 167 mmol/L (136-145) Potassium Level 4.2 mmol/L (3.5-5.1) Chloride Level 124 mmol/L (98-107) Carbon Dioxide Level 24 mmol/L (21-32) Anion Gap 19 (6-14) Blood Urea Nitrogen 76 mg/dL (8-26) Creatinine 5.1 mg/dL (0.7-1.3) Estimated GFR (Cockcroft-Gault) 10.8 BUN/Creatinine Ratio 15 (6-20) Glucose Level 250 mg/dL (70-99) Lactic Acid Level 4.7 mmol/L (0.4-2.0) 4.0 mmol/L (0.4-2.0) Calcium Level 9.5 mg/dL (8.5-10.1) Total Bilirubin 0.7 mg/dL (0.2-1.0) Aspartate Amino Transf (AST/SGOT) 41 U/L (15-37) Alanine Aminotransferase (ALT/SGPT) 34 U/L (16-63) Alkaline Phosphatase 136 U/L (46-116) Total Protein 8.6 g/dL (6.4-8.2) Albumin 3.2 g/dL (3.4-5.0) Albumin/Globulin Ratio 0.6 (1.0-1.7) Lipase 134 U/L (73-393) Urine Collection Type U cath Urine Color Dk yellow Urine Clarity Clear Urine pH 5.5 Urine Specific [place] >=1.030 Urine Protein Negative mg/dL (NEG-TRACE) Urine Glucose (UA) Negative mg/dL (NEG) Urine Ketones (Stick) Trace mg/dL (NEG) Urine Blood Small (NEG) Urine Nitrite Negative (NEG) Urine Bilirubin Small (NEG) Urine Urobilinogen Dipstick 0.2 mg/dL (0.2 mg/dL) Urine Leukocyte Esterase Negative (NEG) Urine RBC Rare /HPF (0-2) Urine WBC 0 /HPF (0-4) Urine Transitional Epithelial Cells Few /LPF Urine Bacteria 0 /HPF (0-FEW) Urine Hyaline Casts Many /HPF Urine Mucus Mod /LPF Glucose (Fingerstick) 226 mg/dL (70-99) Test 04/05/17 03:00 04/05/17 07:22 04/05/17 10:15 04/05/17 10:25 White Blood Count 14.0 x10^3/uL (4.0-11.0) Red Blood Count 4.71 x10^6/uL (4.30-5.70) Hemoglobin 13.5 g/dL (13.0-17.5) Hematocrit 44.9 % (39.0-53.0) Mean Corpuscular Volume 95 fL (79-100) Mean Corpuscular Hemoglobin 29 pg (25-35) Mean Corpuscular Hemoglobin Concent 30 g/dL (31-37) Red Cell Distribution Width 17.5 % (11.5-14.5) Platelet Count 158 x10^3/uL (140-400) Neutrophils (%) (Auto) 75 % (31-73) Lymphocytes (%) (Auto) 17 % (24-48) Monocytes (%) (Auto) 6 % (0-9) Eosinophils (%) (Auto) 1 % (0-3) Basophils (%) (Auto) 1 % (0-3) Neutrophils # (Auto) 10.5 x10^3uL (1.8-7.7) Lymphocytes # (Auto) 2.3 x10^3/uL (1.0-4.8) Monocytes # (Auto) 0.9 x10^3/uL (0.0-1.1) Eosinophils # (Auto) 0.1 x10^3/uL (0.0-0.7) Basophils # (Auto) 0.1 x10^3/uL (0.0-0.2) Sodium Level 168 mmol/L (136-145) Potassium Level 4.4 mmol/L (3.5-5.1) Chloride Level 125 mmol/L (98-107) Carbon Dioxide Level 25 mmol/L (21-32) Anion Gap 18 (6-14) Blood Urea Nitrogen 78 mg/dL (8-26) Creatinine 4.7 mg/dL (0.7-1.3) Estimated GFR (Cockcroft-Gault) 11.8 Glucose Level 224 mg/dL (70-99) Uric Acid 15.4 mg/dL (3.5-7.2) Calcium Level 8.6 mg/dL (8.5-10.1) Creatine Kinase 107 U/L (39-308) Glucose (Fingerstick) 136 mg/dL (70-99) Lactic Acid Level 2.4 mmol/L (0.4-2.0) Urine Random Sodium 106 mmol/L (Not Estab.) Test 04/05/17 11:19 04/05/17 16:32 04/05/17 19:58 04/06/17 05:00 Glucose (Fingerstick) 133 mg/dL (70-99) 156 mg/dL (70-99) 158 mg/dL (70-99) Hemoglobin 12.1 g/dL (13.0-17.5) Sodium Level 164 mmol/L (136-145) Potassium Level 3.9 mmol/L (3.5-5.1) Chloride Level 129 mmol/L (98-107) Carbon Dioxide Level 25 mmol/L (21-32) Anion Gap 10 (6-14) Blood Urea Nitrogen 49 mg/dL (8-26) Creatinine 2.7 mg/dL (0.7-1.3) Estimated GFR (Cockcroft-Gault) 22.5 Glucose Level 175 mg/dL (70-99) Lactic Acid Level 1.8 mmol/L (0.4-2.0) Calcium Level 8.5 mg/dL (8.5-10.1) Phosphorus Level 2.9 mg/dL (2.6-4.7) Magnesium Level 3.0 mg/dL (1.8-2.4) Albumin 2.3 g/dL (3.4-5.0) Test 04/06/17 07:51 Glucose (Fingerstick) 182 mg/dL (70-99) Laboratory Tests Test 04/05/17 10:15 04/05/17 10:25 04/05/17 11:19 04/05/17 16:32 Lactic Acid Level 2.4 mmol/L (0.4-2.0) Urine Random Sodium 106 mmol/L (Not Estab.) Glucose (Fingerstick) 133 mg/dL (70-99) 156 mg/dL (70-99) Test 04/05/17 19:58 04/06/17 05:00 04/06/17 07:51 Glucose (Fingerstick) 158 mg/dL (70-99) 182 mg/dL (70-99) Hemoglobin 12.1 g/dL (13.0-17.5) Sodium Level 164 mmol/L (136-145) Potassium Level 3.9 mmol/L (3.5-5.1) Chloride Level 129 mmol/L (98-107) Carbon Dioxide Level 25 mmol/L (21-32) Anion Gap 10 (6-14) Blood Urea Nitrogen 49 mg/dL (8-26) Creatinine 2.7 mg/dL (0.7-1.3) Estimated GFR (Cockcroft-Gault) 22.5 Glucose Level 175 mg/dL (70-99) Lactic Acid Level 1.8 mmol/L (0.4-2.0) Calcium Level 8.5 mg/dL (8.5-10.1) Phosphorus Level 2.9 mg/dL (2.6-4.7) Magnesium Level 3.0 mg/dL (1.8-2.4) Albumin 2.3 g/dL (3.4-5.0) Microbiology 04/04/17 Blood Culture - Preliminary, Resulted NO GROWTH AFTER 1 DAY Medications Current Medications Piperacillin Sod/ Tazobactam Sod (Zosyn Per Pharmacy) 1 each PRN DAILY PRN MC SEE COMMENTS; Start 04/04/17 at 16:15 Vancomycin HCl (Vanco Per Pharmacy) 1 each PRN DAILY PRN MC SEE COMMENTS Last administered on 04/05/17 09:33; Start 04/04/17 at 16:15; Stop 04/05/17 at 20 :49; Status DC Vancomycin HCl 1.75 gm/Dextrose 500 ml @ 250 mls/hr 1X ONCE IV Last administered on 04/04/17 16:54; Start 04/04/17 at 16:30; Stop 04/04/17 at 18 :29; Status DC Piperacillin Sod/ Tazobactam Sod (Zosyn) 2.25 gm 1X ONCE IVP Last administered on 04/04/17 16:53; Start 04/04/17 at 16:30; Stop 04/04/17 at 16 :31; Status DC Sodium Chloride 1,000 ml @ 1,000 mls/hr 1X ONCE IV Last administered on 04/04 16:54; Start 04/04/17 at 16:30; Stop 04/04/17 at 17:29; Status DC Sodium Chloride 1,000 ml @ 1,000 mls/hr 1X ONCE IV Last administered on 04/04 16:54; Start 04/04/17 at 16:30; Stop 04/04/17 at 17:29; Status DC Ondansetron HCl (Zofran) 4 mg PRN Q8HRS PRN IV NAUSEA/VOMITING; Start at 16:30; Stop 04/05/17 at 16:29; Status DC Fentanyl Citrate (Fentanyl 2ml Vial) 50 mcg PRN Q1HR PRN IV PAIN; Start at 16:30; Stop 04/04/17 at 20:31; Status DC Sodium Chloride 1,000 ml @ 200 mls/hr Q5H IV Last administered on 04/05/17 00:00; Start 04/04/17 at 16:19; Stop 04/05/17 at 06:30; Status DC Acetaminophen (Tylenol) 650 mg PRN Q4HRS PRN PO FEVER; Start 04/04/17 at 16:30 ; Stop 04/05/17 at 09:40; Status DC Piperacillin Sod/ Tazobactam Sod (Zosyn) 2.25 gm Q8HRS IVP Last administered on 04/06/17 05:53; Start 04/04/17 at 23:00 Vancomycin HCl 1 each 1X ONCE MC ; Start 04/06/17 at 17:00; Stop 04/06/17 at 17:01; Status Cancel Acetaminophen (Tylenol) 650 mg PRN Q4HRS PRN PO MILD PAIN/TEMP; Start at 20:30 Ipratropium [place] (Atrovent) 0.2 mg PRN Q6HRS PRN NEB SHORTNESS OF BREATH; Start 04/04/17 at 20:30 Insulin Detemir (Levemir) 7 units BID SQ Last administered on 04/06/17 08:27 ; Start 04/04/17 at 21:00 Insulin Aspart (NovoLOG) 0-5 UNITS TIDWMEALS SQ ; Start 04/05/17 at 08:00 Dextrose (Dextrose 50%-Water Syringe) 12.5 gm PRN Q15MIN PRN IV SEE COMMENTS; Start 04/04/17 at 20:30 Sodium Chloride 1,000 ml @ 200 mls/hr Q5H IV Last administered on 04/05/17 06:11; Start 04/05/17 at 06:15; Stop 04/05/17 at 09:49; Status DC Magnesium Sulfate/ Dextrose 50 ml @ 25 mls/hr PRN DAILY PRN IV for Mag < 1.7 on am labs; Start 04/05/17 at 09:45 Amino Acids/ Glycerin/ Electrolytes 1,000 ml @ 80 mls/hr [id number] IV Last administered on 04/05/17t 21:58; Start 04/05/17 at 09:45 Sodium Chloride 500 ml @ 0 mls/hr QID PRN IV UO< 30cc/hr over previous 6hrs; Start 04/05/17 at 09:45 Linezolid (Zyvox) 600 mg BID PO ; Start 04/05/17 at 21:00 Linezolid 300 ml @ 300 mls/hr 1X ONCE IV Last administered on 04/06/17 08: 19; Start 04/06/17 at 09:00; Stop 04/06/17 at 09:59 Active Scripts Active Reported Tylenol (Acetaminophen) 325 Mg Tablet 2 Tab PO PRN Q4HRS Tramadol Hcl 50 Mg Tablet 1 Tab PO PRN Q6HRS Terbinafine Hcl 250 Mg Tablet 1 Tab PO DAILY Senokot-S Tablet (Sennosides/Docusate Sodium) 1 Each Tablet 2 Tab PO BID Seroquel (Quetiapine Fumarate) 25 Mg Tablet 1 Tab PO BID Oxycodone Hcl 5 Mg Tablet 0.5 Tab PO Q4HRS Novolog (Insulin Aspart) 100 Unit/1 Ml Cartridge 100 Unit SQ Miralax (Polyethylene Glycol 3350) 17 Gm Powd.pack 1 Packet PO DAILY Metformin Hcl 500 Mg Tablet 500 Mg PO BIDWMEALS Dulcolax (Bisacodyl) 5 Mg Tablet.dr 5 Mg PO DAILY Alprazolam 0.5 Mg Tablet 0.5 Mg PO PRN Q8HRS PRN Ipratropium [place] 0.2 Mg/1 Ml Solution 1 Vial NEB PRN Q6HRS PRN Aricept (Donepezil Hcl) 10 Mg Tablet 1 Tab PO DAILY Lasix (Furosemide) 20 Mg Tablet 1.5 Tab PO DAILY Levemir (Insulin Detemir) 100 Unit/1 Ml Vial 14 Unit SQ DAILY08 Levothyroxine Sodium 50 Mcg Tablet 1 Tab PO DAILY Namenda (Memantine Hcl) 10 Mg Tablet 10 Mg PO AFTRNOON Potassium Chloride Oral Liquid (Potassium Chloride) 20 Meq/15 Ml Liquid 7.5 Meq PO DAILY Simvastatin 10 Mg Tablet 0.5 Tab PO QHS Levemir (Insulin Detemir) 100 Unit/1 Ml Vial 14 Unit SQ HS Valproic Acid (Valproate Sodium) 250 Mg/5 Ml Solution 375 Mg PO BID Melatonin 3 Mg Tablet 1 Tab PO QHS Vitamin B-12 (Cyanocobalamin (Vitamin B-12)) 1,000 Mcg Tablet 500 Mcg PO DAILY Vitals/I & O Vital Sign - Last 24 Hours 04/05/17 04/05/17 04/05/17 04/05/17 10:30 14:30 19:00 19:25 Temp 97.9 97.7 97.9 97.9 97.7 97.9 Pulse 79 78 68 Resp 18 18 16 B/P (MAP) 111/50 (70) 95/47 (63) 99/40 (59) Pulse Ox 95 99 98 O2 Delivery Nasal Cannula Nasal Cannula Nasal Cannula Nasal Cannula O2 Flow Rate 2.0 2.0 2.0 04/05/17 04/06/17 04/06/17 04/06/17 22:46 03:00 07:00 08:00 Temp 97.6 97.8 98.4 97.6 97.8 98.4 Pulse 74 75 75 Resp 16 17 19 B/P (MAP) 92/36 (54) 113/51 (71) 110/48 (68) Pulse Ox 96 96 96 O2 Delivery Room Air Room Air Nasal Cannula Nasal Cannula O2 Flow Rate 2.0 Intake and Output 04/05/17 04/05/17 04/06/17 15:00 23:00 07:00 Intake Total 0 ml 0 ml 0 ml Output Total 350 ml 2 ml Balance 0 ml -350 ml -2 ml CHICA MENDOZA MD Apr 06, 2017 09:54
[2017-04-06 10:39] VITALS: BP 93/94
[2017-04-06] MEDS: AMINO AC 3%/ELECTROLYTE/GLYCER 1,000 ML IV SCH ×2 (10:45→23:34)
--- NOTE | 2017-04-06 12:06 | RAD ---
PQRS Compliance Statement: One or more of the following individualized dose reduction techniques were utilized for this examination: 1. Automated exposure control 2. Adjustment of the mA and/or kV according to patient size 3. Use of iterative reconstruction technique CT PELVIS WO CONTRAST Clinical Indication: fluid collection? Comparison: None. Technique: Helical CT imaging of the pelvis is performed without IV contrast. Findings: Atherosclerotic distal abdominal aorta, no aneurysm. There is a small fat-containing umbilical hernia. There is no dilated small bowel. The appendix is normal. The colon is decompressed, limiting evaluation. No obvious wall thickening. There is beam hardening artifact from right hip arthroplasty, limiting evaluation. There is a [place] catheter in the bladder, bladder is decompressed accentuating wall thickness. Tiny amount of air in the bladder. There are coarse calcifications in the prostate. Prostate mildly enlarged. No obvious pelvic free fluid. No acute fracture. The left sacroiliac joint is fused. Degenerative spondylosis and vacuum disc phenomena of L4/L5 and L5/S1. Anatomic alignment of right hip arthroplasty. Mild subcutaneous induration lateral and posterior to the right hip. Finding may be postsurgical or posttraumatic. IMPRESSION: 1. No acute pelvic abnormality. 2. Prostate mildly enlarged.
--- NOTE | 2017-04-06 13:05 | PDOC ---
SUBJECTIVE ROS JOSEFINA and ^ed Na remains dysphasic unabel to reliably get ROS OBJECTIVE Vital Signs Vital Signs Date Time Temp Pulse Resp B/P (MAP) Pulse Ox O2 Delivery O2 Flow Rate FiO2 04/06/17 10:39 97.7 66 19 93/94 (94) 98 Nasal Cannula 97.7 04/06/17 08:00 2.0 I & 0 Intake and Output 04/06/17 07:00 Intake Total 0 ml Output Total 352 ml Balance -352 ml Intake Oral 0 ml Output Urine Total 352 ml # Voids 1 # Bowel Movements 1 PHYSICAL EXAM Physical Exam General Appearance: Awake little more Alert today Oriented x 0 In no Distress Eyes: Sclera Anicteric Conjunctiva Normal EN: No EN Drainage Mucous Memb. dryish Neck: no JVD no JVP Supple no Thyromegaly CVS: S1 S2 no Murmur No Gallop No Rub no Edema Resp: no Rales no Rhonchi no Acc. Muscle use GI: BS +ve NO Bruit Non Tender Non Distended : no CVA tenderness; no Suprapubic Tenderness Assessment & Plan ARF/ ? ATN - due to septic shock vs Pre-renal due to sev dehydration. Creat is better with vol repletion. Current FLuid and E-lyte status does not necessitate emergent need for Dialysis. Poor candidate for HD given current functional status Lactic Acidosis (WAGMA) - resolved with Vol repeltion ^Na - PPN for now; hypotonic IVF Sev Dehydration - Hypotonic IVF in the form of PPN suspected malnutrition - PPN for now AMS - suspect asso with infection/ HypoVolemia >> renal dysfunction HypoTN: somewhat better with IVF for now . IVF boluses prn ? Hip Wound -- ID/ ortho etc consulted May need code status addressed COMMENT/RELEVANT DATA Meds Current Medications Medications (Trade) Dose Ordered Sig/Jennifer Start Time Stop Time Status Last Admin Dose Admin Acetaminophen (Tylenol) 650 mg PRN Q4HRS PRN 04/04/17 20:30 Amino Acids/ Glycerin/ Electrolytes 1,000 ml @ 80 mls/hr [id number] 04/05/17 09:45 04/06/17 10:45 80 MLS/HR Dextrose (Dextrose 50%-Water Syringe) 12.5 gm PRN Q15MIN PRN 04/04/17 20:30 Fentanyl Citrate (Fentanyl 2ml Vial) 50 mcg PRN Q1HR PRN 04/04/17 16:30 04/04/17 20:31 DC Insulin Aspart (NovoLOG) 0-5 UNITS TIDWMEALS 04/05/17 08:00 Insulin Detemir (Levemir) 7 units BID 04/04/17 21:00 04/06/17 08:27 7 UNITS Ipratropium [place] (Atrovent) 0.2 mg PRN Q6HRS PRN 04/04/17 20:30 Linezolid 300 ml @ 300 mls/hr 1X ONCE 04/06/17 09:00 04/06/17 09:59 DC 04/06/17 08:19 300 MLS/HR Linezolid (Zyvox) 600 mg BID 04/05/17 21:00 Magnesium Sulfate/ Dextrose 50 ml @ 25 mls/hr PRN DAILY PRN 04/05/17 09:45 Ondansetron HCl (Zofran) 4 mg PRN Q8HRS PRN 04/04/17 16:30 04/05/17 16:29 DC Piperacillin Sod/ Tazobactam Sod (Zosyn Per Pharmacy) 1 each PRN DAILY PRN 04/04/17 16:15 Piperacillin Sod/ Tazobactam Sod (Zosyn) 2.25 gm Q8HRS 04/04/17 23:00 04/06/17 05:53 2.25 GM Sodium Chloride 500 ml @ 0 mls/hr QID PRN 04/05/17 09:45 Vancomycin HCl 1 each 1X ONCE 04/06/17 17:00 04/06/17 17:01 Cancel Vancomycin HCl (Vanco Per Pharmacy) 1 each PRN DAILY PRN 04/04/17 16:15 04/05/17 20:49 DC 04/05/17 09:33 1 EACH Vancomycin HCl 1.75 gm/Dextrose 500 ml @ 250 mls/hr 1X ONCE 04/04/17 16:30 04/04/17 18:29 DC 04/04/17 16:54 250 MLS/HR Lab Laboratory Tests Test 04/05/17 16:32 04/05/17 19:58 04/06/17 05:00 04/06/17 07:51 Glucose (Fingerstick) 156 mg/dL (70-99) 158 mg/dL (70-99) 182 mg/dL (70-99) Hemoglobin 12.1 g/dL (13.0-17.5) Sodium Level 164 mmol/L (136-145) Potassium Level 3.9 mmol/L (3.5-5.1) Chloride Level 129 mmol/L (98-107) Carbon Dioxide Level 25 mmol/L (21-32) Anion Gap 10 (6-14) Blood Urea Nitrogen 49 mg/dL (8-26) Creatinine 2.7 mg/dL (0.7-1.3) Estimated GFR (Cockcroft-Gault) 22.5 Glucose Level 175 mg/dL (70-99) Lactic Acid Level 1.8 mmol/L (0.4-2.0) Calcium Level 8.5 mg/dL (8.5-10.1) Phosphorus Level 2.9 mg/dL (2.6-4.7) Magnesium Level 3.0 mg/dL (1.8-2.4) Albumin 2.3 g/dL (3.4-5.0) Test 04/06/17 12:31 Glucose (Fingerstick) 182 mg/dL (70-99) KINJAL CLAUDIO MD Apr 06, 2017 13:05
[2017-04-06 15:00] VITALS: BP 106/55
--- NOTE | 2017-04-06 15:25 | PDOC ---
Infectious Disease Note Subjective Subjective Noncommunicative [place] No fever ROS ROS Unobtainable Vital Sign Vital Signs Vital Signs Date Time Temp Pulse Resp B/P (MAP) Pulse Ox O2 Delivery O2 Flow Rate FiO2 04/06/17 15:00 98.5 74 19 106/55 (72) 99 Nasal Cannula 98.5 04/06/17 08:00 2.0 Physical Exam PHYSICAL EXAM GENERAL: Propped up in bed, calm, babbling HEENT: + eye contact, left eyelid skin tag LUNGS: Clear to auscultation. HEART: Normal S1 and S2. No murmur appreciated. ABDOMEN: Nondistended. Bowel sounds active. Soft. No grimace or guarding to palpation. GENITOURINARY: Bo[place] in place. EXTREMITIES: No gross edema or cyanosis. Left heel bandaged. Right hip incision is healing well. Pin size hole noted, no fluctuance or redness. Nontender SKIN: Without rash. NEUROLOGICAL: Alert, does not follow commands Labs Lab Laboratory Tests Test 04/05/17 16:32 04/05/17 19:58 04/06/17 05:00 04/06/17 07:51 Glucose (Fingerstick) 156 mg/dL (70-99) 158 mg/dL (70-99) 182 mg/dL (70-99) Hemoglobin 12.1 g/dL (13.0-17.5) Sodium Level 164 mmol/L (136-145) Potassium Level 3.9 mmol/L (3.5-5.1) Chloride Level 129 mmol/L (98-107) Carbon Dioxide Level 25 mmol/L (21-32) Anion Gap 10 (6-14) Blood Urea Nitrogen 49 mg/dL (8-26) Creatinine 2.7 mg/dL (0.7-1.3) Estimated GFR (Cockcroft-Gault) 22.5 Glucose Level 175 mg/dL (70-99) Lactic Acid Level 1.8 mmol/L (0.4-2.0) Calcium Level 8.5 mg/dL (8.5-10.1) Phosphorus Level 2.9 mg/dL (2.6-4.7) Magnesium Level 3.0 mg/dL (1.8-2.4) Albumin 2.3 g/dL (3.4-5.0) Test 04/06/17 12:31 Glucose (Fingerstick) 182 mg/dL (70-99) CT PELVIS WO CONTRAST Clinical Indication: fluid collection? Findings: Atherosclerotic distal abdominal aorta, no aneurysm. There is a small fat-containing umbilical hernia. There is no dilated small bowel. The appendix is normal. The colon is decompressed, limiting evaluation. No obvious wall thickening. There is beam hardening artifact from right hip arthroplasty, limiting evaluation. There is a [place] catheter in the bladder, bladder is decompressed accentuating wall thickness. Tiny amount of air in the bladder. There are coarse calcifications in the prostate. Prostate mildly enlarged. No obvious pelvic free fluid. No acute fracture. The left sacroiliac joint is fused. Degenerative spondylosis and vacuum disc phenomena of L4/L5 and L5/S1. Anatomic alignment of right hip arthroplasty. Mild subcutaneous induration lateral and posterior to the right hip. Finding may be postsurgical or posttraumatic. Micro BLOOD CULTURE Preliminary NO GROWTH AFTER 2 DAY Objective Assessment Leukocytosis, improved Lactic acidosis, improved s/p right hip hemiarthroplasty, Mar [address] Burgess, now + drainage; no fluctuance, redness or tenderness; CT neg fluid collection Acute encephalopathy, improving JOSEFINA Dehydration Alzheimer's Plan Plan of Care Zyxox and Zosyn BC NGTD f/u am labs and cultures PT SEEN ,EXAMINED ,D/W SHOW GIRL CONTINUE SAME NIALL MOHAN APRN Apr 06, 2017 15:25 JUNIOR CLAUDIO MD Apr 06, 2017 18:38
[2017-04-06] MEDS ORDERED: VANCOMYCIN RANDOM LEVEL. MC ONE (17:00)
[2017-04-06] MEDS: PIPERACILLIN/TAZO IV Push 3.375 GM VIAL. IVP SCH ×2 (17:45→23:34)
[2017-04-06 19:00] VITALS: BP 106/33
[2017-04-06 23:00] VITALS: BP 93/57
[2017-04-07 03:00] VITALS: BP 92/52
[2017-04-07 03:19] LABS: BASO # 0.1 x10^3/uL (0.0-0.2); BASO % 1 % (0-3); EOS % 7 % (0-3); HEMATOCRIT 40.8 % (39.0-53.0); HEMOGLOBIN 12.5 g/dL (13.0-17.5); LYMPH # 1.9 x10^3/uL (1.0-4.8); LYMPH % 26 % (24-48); MEAN CORPUSCULAR HEMOGLOBIN 28 pg (25-35); MEAN CORPUSCULAR HGB CONC 31 g/dL (31-37); MEAN CORPUSCULAR VOLUME 92 fL (79-100); MONO % 8 % (0-9); NEUT % 59 % (31-73); PLATELET COUNT 126 x10^3/uL (140-400); RED BLOOD COUNT 4.44 x10^6/uL (4.30-5.70); RED CELL DISTRIBUTION WIDTH 16.1 % (11.5-14.5); WHITE BLOOD COUNT 7.3 x10^3/uL (4.0-11.0)
[2017-04-07 03:50] LABS: ALBUMIN 2.2 g/dL (3.4-5.0); ALBUMIN/GLOBULIN RATIO 0.5 (1.0-1.7); CALCIUM 8.7 mg/dL (8.5-10.1); CREATININE 2.5 mg/dL (0.7-1.3); GFR 24.6; MAGNESIUM 2.6 mg/dL (1.8-2.4); PHOSPHORUS 2.2 mg/dL (2.6-4.7); POTASSIUM 3.9 mmol/L (3.5-5.1); TOTAL BILIRUBIN 0.5 mg/dL (0.2-1.0); TOTAL PROTEIN 6.7 g/dL (6.4-8.2)
[2017-04-07] MEDS: PIPERACILLIN/TAZO IV Push 3.375 GM VIAL. IVP SCH ×4 (04:58→23:55)
[2017-04-07 07:00] VITALS: BP 162/72
[2017-04-07] MEDS: LINEZOLID 600 MG TABLET PO SCH ×3 (08:18→21:00)
[2017-04-07] MEDS: INSULIN ASPART 300 UNITS/3 ML INSULN.PEN SQ SCH ×3 (08:29→17:00)
[2017-04-07] MEDS: INSULIN DETEMIR 300 UNITS/3 ML INSULN.PEN. SQ SCH ×2 (08:30→21:41)
--- NOTE | 2017-04-07 10:25 | PDOC ---
Infectious Disease Note Subjective Subjective Noncommunicative [place] No fever ROS ROS no n/v/d/pain Vital Sign Vital Signs Vital Signs Date Time Temp Pulse Resp B/P (MAP) Pulse Ox O2 Delivery O2 Flow Rate FiO2 04/07/17 08:00 Room Air 04/07/17 07:00 97.7 83 18 162/72 (102) 96 2.0 97.7 Physical Exam PHYSICAL EXAM GENERAL: NAD, Alert HEENT: PERRL, OC/OP NECK: Supple, no JVD, no LN LUNGS: Clear HEART: S1S2, no gallop, no murmur ABD: Soft, NT, no organomegaly, no rebound EXT: No edema, no cyanosis [employer]CHITECT[employer] DRAFTSPERSON: Alert, moves all ext SKIN: No rash IV: ok Labs Lab Laboratory Tests Test 04/06/17 12:31 04/06/17 16:34 04/06/17 20:57 04/07/17 03:15 Glucose (Fingerstick) 182 mg/dL (70-99) 177 mg/dL (70-99) 175 mg/dL (70-99) White Blood Count 7.3 x10^3/uL (4.0-11.0) Red Blood Count 4.44 x10^6/uL (4.30-5.70) Hemoglobin 12.5 g/dL (13.0-17.5) Hematocrit 40.8 % (39.0-53.0) Mean Corpuscular Volume 92 fL (79-100) Mean Corpuscular Hemoglobin 28 pg (25-35) Mean Corpuscular Hemoglobin Concent 31 g/dL (31-37) Red Cell Distribution Width 16.1 % (11.5-14.5) Platelet Count 126 x10^3/uL (140-400) Neutrophils (%) (Auto) 59 % (31-73) Lymphocytes (%) (Auto) 26 % (24-48) Monocytes (%) (Auto) 8 % (0-9) Eosinophils (%) (Auto) 7 % (0-3) Basophils (%) (Auto) 1 % (0-3) Neutrophils # (Auto) 4.3 x10^3uL (1.8-7.7) Lymphocytes # (Auto) 1.9 x10^3/uL (1.0-4.8) Monocytes # (Auto) 0.6 x10^3/uL (0.0-1.1) Eosinophils # (Auto) 0.5 x10^3/uL (0.0-0.7) Basophils # (Auto) 0.1 x10^3/uL (0.0-0.2) Sodium Level 160 mmol/L (136-145) Potassium Level 3.9 mmol/L (3.5-5.1) Chloride Level 126 mmol/L (98-107) Carbon Dioxide Level 25 mmol/L (21-32) Anion Gap 9 (6-14) Blood Urea Nitrogen 40 mg/dL (8-26) Creatinine 2.5 mg/dL (0.7-1.3) Estimated GFR (Cockcroft-Gault) 24.6 BUN/Creatinine Ratio 16 (6-20) Glucose Level 193 mg/dL (70-99) Lactic Acid Level 2.2 mmol/L (0.4-2.0) Calcium Level 8.7 mg/dL (8.5-10.1) Phosphorus Level 2.2 mg/dL (2.6-4.7) Magnesium Level 2.6 mg/dL (1.8-2.4) Total Bilirubin 0.5 mg/dL (0.2-1.0) Aspartate Amino Transf (AST/SGOT) 47 U/L (15-37) Alanine Aminotransferase (ALT/SGPT) 33 U/L (16-63) Alkaline Phosphatase 99 U/L (46-116) Total Protein 6.7 g/dL (6.4-8.2) Albumin 2.2 g/dL (3.4-5.0) Albumin/Globulin Ratio 0.5 (1.0-1.7) Test 04/07/17 07:46 Glucose (Fingerstick) 166 mg/dL (70-99) Objective Assessment Leukocytosis, improved Lactic acidosis, improved s/p right hip hemiarthroplasty, Mar [address] Burgess, now + drainage; no fluctuance, redness or tenderness; CT neg fluid collection Acute encephalopathy, improving JOSEFINA Dehydration Alzheimer's Plan Plan of Care Zyxox and Zosyn,, BC NGTD f/u am labs and cultures may consider oral, pt likely going to hospice as per JAS MOJICA MD Apr 07, 2017 10:25
[2017-04-07] MEDS ORDERED: ONDANSETRON PF 4 MG/2 ML VIAL. IV PRN (10:30)
--- NOTE | 2017-04-07 10:31 | PDOC ---
SUBJECTIVE ROS Fup JOSEFINA/ ^Na looks better overall but remains min verbal OBJECTIVE Vital Signs Vital Signs Date Time Temp Pulse Resp B/P (MAP) Pulse Ox O2 Delivery O2 Flow Rate FiO2 04/07/17 08:00 Room Air 04/07/17 07:00 97.7 83 18 162/72 (102) 96 2.0 97.7 I & 0 Intake and Output 04/07/17 06:59 Intake Total 1000 ml Output Total 900 ml Balance 100 ml Intake Oral 0 ml IV Total 1000 ml Output Urine Total 900 ml PHYSICAL EXAM Physical Exam General Appearance: Awake; little more Alert today Oriented x 0 In no Distress Eyes: Sclera Anicteric Conjunctiva Normal EN: No EN Drainage Mucous Memb. moist today Neck: no JVD no JVP Supple no Thyromegaly CVS: S1 S2 no Murmur No Gallop No Rub no Edema Resp: no Rales no Rhonchi no Acc. Muscle use GI: BS +ve NO Bruit Non Tender Non Distended : no CVA tenderness; no Suprapubic Tenderness Assessment & Plan ARF/ ? ATN - due to septic shock vs Pre-renal due to sev dehydration. Creat is better with vol repletion. Current FLuid and E-lyte status does not necessitate emergent need for Dialysis. Poor candidate for HD given current functional status; now Non-Oliguric Lactic Acidosis (WAGMA) - marginally ^ed despite Vol repletion ^Na - PPN for now; hypotonic IVF; gradually improving Sev Dehydration - Hypotonic IVF in the form of PPN - gradually improving suspected malnutrition - PPN for now Low Phos - IV K Phos x 1 AMS - suspect asso with infection/ HypoVolemia >> renal dysfunction HypoTN: somewhat better with IVF for now . D/w Twin sons at bedside May need code status addressed COMMENT/RELEVANT DATA Meds Current Medications Medications (Trade) Dose Ordered Sig/Jennifer Start Time Stop Time Status Last Admin Dose Admin Acetaminophen (Tylenol) 650 mg PRN Q4HRS PRN 04/04/17 20:30 Amino Acids/ Glycerin/ Electrolytes 1,000 ml @ 80 mls/hr [id number] 04/05/17 09:45 04/06/17 23:34 80 MLS/HR Dextrose (Dextrose 50%-Water Syringe) 12.5 gm PRN Q15MIN PRN 04/04/17 20:30 Fentanyl Citrate (Fentanyl 2ml Vial) 50 mcg PRN Q1HR PRN 04/04/17 16:30 04/04/17 20:31 DC Insulin Aspart (NovoLOG) 0-5 UNITS TIDWMEALS 04/05/17 08:00 04/07/17 08:29 2 UNITS Insulin Detemir (Levemir) 7 units BID 04/04/17 21:00 04/07/17 08:30 7 UNITS Ipratropium [place] (Atrovent) 0.2 mg PRN Q6HRS PRN 04/04/17 20:30 Linezolid 300 ml @ 300 mls/hr 1X ONCE 04/06/17 09:00 04/06/17 09:59 DC 04/06/17 08:19 300 MLS/HR Linezolid (Zyvox) 600 mg BID 04/05/17 21:00 04/07/17 08:18 600 MG Magnesium Sulfate/ Dextrose 50 ml @ 25 mls/hr PRN DAILY PRN 04/05/17 09:45 Ondansetron HCl (Zofran) 4 mg PRN Q8HRS PRN 04/04/17 16:30 04/05/17 16:29 DC Piperacillin Sod/ Tazobactam Sod (Zosyn Per Pharmacy) 1 each PRN DAILY PRN 04/04/17 16:15 Piperacillin Sod/ Tazobactam Sod (Zosyn) 3.375 gm Q6HRS 04/06/17 18:00 04/07/17 04:58 3.375 GM Sodium Chloride 500 ml @ 0 mls/hr QID PRN 04/05/17 09:45 Vancomycin HCl 1 each 1X ONCE 04/06/17 17:00 04/06/17 17:01 Cancel Vancomycin HCl (Vanco Per Pharmacy) 1 each PRN DAILY PRN 04/04/17 16:15 04/05/17 20:49 DC 04/05/17 09:33 1 EACH Vancomycin HCl 1.75 gm/Dextrose 500 ml @ 250 mls/hr 1X ONCE 04/04/17 16:30 04/04/17 18:29 DC 04/04/17 16:54 250 MLS/HR Lab Laboratory Tests Test 04/06/17 12:31 04/06/17 16:34 04/06/17 20:57 04/07/17 03:15 Glucose (Fingerstick) 182 mg/dL (70-99) 177 mg/dL (70-99) 175 mg/dL (70-99) White Blood Count 7.3 x10^3/uL (4.0-11.0) Red Blood Count 4.44 x10^6/uL (4.30-5.70) Hemoglobin 12.5 g/dL (13.0-17.5) Hematocrit 40.8 % (39.0-53.0) Mean Corpuscular Volume 92 fL (79-100) Mean Corpuscular Hemoglobin 28 pg (25-35) Mean Corpuscular Hemoglobin Concent 31 g/dL (31-37) Red Cell Distribution Width 16.1 % (11.5-14.5) Platelet Count 126 x10^3/uL (140-400) Neutrophils (%) (Auto) 59 % (31-73) Lymphocytes (%) (Auto) 26 % (24-48) Monocytes (%) (Auto) 8 % (0-9) Eosinophils (%) (Auto) 7 % (0-3) Basophils (%) (Auto) 1 % (0-3) Neutrophils # (Auto) 4.3 x10^3uL (1.8-7.7) Lymphocytes # (Auto) 1.9 x10^3/uL (1.0-4.8) Monocytes # (Auto) 0.6 x10^3/uL (0.0-1.1) Eosinophils # (Auto) 0.5 x10^3/uL (0.0-0.7) Basophils # (Auto) 0.1 x10^3/uL (0.0-0.2) Sodium Level 160 mmol/L (136-145) Potassium Level 3.9 mmol/L (3.5-5.1) Chloride Level 126 mmol/L (98-107) Carbon Dioxide Level 25 mmol/L (21-32) Anion Gap 9 (6-14) Blood Urea Nitrogen 40 mg/dL (8-26) Creatinine 2.5 mg/dL (0.7-1.3) Estimated GFR (Cockcroft-Gault) 24.6 BUN/Creatinine Ratio 16 (6-20) Glucose Level 193 mg/dL (70-99) Lactic Acid Level 2.2 mmol/L (0.4-2.0) Calcium Level 8.7 mg/dL (8.5-10.1) Phosphorus Level 2.2 mg/dL (2.6-4.7) Magnesium Level 2.6 mg/dL (1.8-2.4) Total Bilirubin 0.5 mg/dL (0.2-1.0) Aspartate Amino Transf (AST/SGOT) 47 U/L (15-37) Alanine Aminotransferase (ALT/SGPT) 33 U/L (16-63) Alkaline Phosphatase 99 U/L (46-116) Total Protein 6.7 g/dL (6.4-8.2) Albumin 2.2 g/dL (3.4-5.0) Albumin/Globulin Ratio 0.5 (1.0-1.7) Test 04/07/17 07:46 Glucose (Fingerstick) 166 mg/dL (70-99) KINJAL CLAUDIO MD Apr 07, 2017 10:31
[2017-04-07 11:00] VITALS: BP 104/64
--- NOTE | 2017-04-07 11:12 | PDOC ---
PROGRESS NOTES Chief Complaint Chief Complaint demented custodial patient severe hypernatremia critical 160 dehydration. 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0 97.7 Physical Exam General: Alert, Cooperative, No acute distress, Other (disoriented) Heart: Regular rate, No murmurs Lungs: Clear Abdomen: Normal bowel sounds Extremities: No clubbing Skin: No rashes Labs LABS Laboratory Tests Test 04/06/17 12:31 04/06/17 16:34 04/06/17 20:57 04/07/17 03:15 Glucose (Fingerstick) 182 mg/dL (70-99) 177 mg/dL (70-99) 175 mg/dL (70-99) White Blood Count 7.3 x10^3/uL (4.0-11.0) Red Blood Count 4.44 x10^6/uL (4.30-5.70) Hemoglobin 12.5 g/dL (13.0-17.5) Hematocrit 40.8 % (39.0-53.0) Mean Corpuscular Volume 92 fL (79-100) Mean Corpuscular Hemoglobin 28 pg (25-35) Mean Corpuscular Hemoglobin Concent 31 g/dL (31-37) Red Cell Distribution Width 16.1 % (11.5-14.5) Platelet Count 126 x10^3/uL (140-400) Neutrophils (%) (Auto) 59 % (31-73) Lymphocytes (%) (Auto) 26 % (24-48) Monocytes (%) (Auto) 8 % (0-9) Eosinophils (%) (Auto) 7 % (0-3) Basophils (%) (Auto) 1 % (0-3) Neutrophils # (Auto) 4.3 x10^3uL (1.8-7.7) Lymphocytes # (Auto) 1.9 x10^3/uL (1.0-4.8) Monocytes # (Auto) 0.6 x10^3/uL (0.0-1.1) Eosinophils # (Auto) 0.5 x10^3/uL (0.0-0.7) Basophils # (Auto) 0.1 x10^3/uL (0.0-0.2) Sodium Level 160 mmol/L (136-145) Potassium Level 3.9 mmol/L (3.5-5.1) Chloride Level 126 mmol/L (98-107) Carbon Dioxide Level 25 mmol/L (21-32) Anion Gap 9 (6-14) Blood Urea Nitrogen 40 mg/dL (8-26) Creatinine 2.5 mg/dL (0.7-1.3) Estimated GFR (Cockcroft-Gault) 24.6 BUN/Creatinine Ratio 16 (6-20) Glucose Level 193 mg/dL (70-99) Lactic Acid Level 2.2 mmol/L (0.4-2.0) Calcium Level 8.7 mg/dL (8.5-10.1) Phosphorus Level 2.2 mg/dL (2.6-4.7) Magnesium Level 2.6 mg/dL (1.8-2.4) Total Bilirubin 0.5 mg/dL (0.2-1.0) Aspartate Amino Transf (AST/SGOT) 47 U/L (15-37) Alanine Aminotransferase (ALT/SGPT) 33 U/L (16-63) Alkaline Phosphatase 99 U/L (46-116) Total Protein 6.7 g/dL (6.4-8.2) Albumin 2.2 g/dL (3.4-5.0) Albumin/Globulin Ratio 0.5 (1.0-1.7) Test 04/07/17 07:46 Glucose (Fingerstick) 166 mg/dL (70-99) Review of Systems Review of Systems demented Assessment and Plan Assessmemt and Plan Problems Medical Problems: (1) Acute renal failure Status: Acute (2) Altered mental status Status: Acute (3) Hypernatremia Status: Acute Problems: Comment Review of Relevant I have reviewed the following items sofie (where applicable) has been applied. Labs Laboratory Tests Test 04/05/17 11:19 04/05/17 16:32 04/05/17 19:58 04/05/17 21:14 Glucose (Fingerstick) 133 mg/dL (70-99) 156 mg/dL (70-99) 158 mg/dL (70-99) Nasal Screen MRSA (PCR) Negative (Negative) Test 04/06/17 05:00 04/06/17 07:51 04/06/17 12:31 04/06/17 16:34 Hemoglobin 12.1 g/dL (13.0-17.5) Sodium Level 164 mmol/L (136-145) Potassium Level 3.9 mmol/L (3.5-5.1) Chloride Level 129 mmol/L (98-107) Carbon Dioxide Level 25 mmol/L (21-32) Anion Gap 10 (6-14) Blood Urea Nitrogen 49 mg/dL (8-26) Creatinine 2.7 mg/dL (0.7-1.3) Estimated GFR (Cockcroft-Gault) 22.5 Glucose Level 175 mg/dL (70-99) Lactic Acid Level 1.8 mmol/L (0.4-2.0) Calcium Level 8.5 mg/dL (8.5-10.1) Phosphorus Level 2.9 mg/dL (2.6-4.7) Magnesium Level 3.0 mg/dL (1.8-2.4) Albumin 2.3 g/dL (3.4-5.0) Glucose (Fingerstick) 182 mg/dL (70-99) 182 mg/dL (70-99) 177 mg/dL (70-99) Test 04/06/17 20:57 04/07/17 03:15 04/07/17 07:46 Glucose (Fingerstick) 175 mg/dL (70-99) 166 mg/dL (70-99) White Blood Count 7.3 x10^3/uL (4.0-11.0) Red Blood Count 4.44 x10^6/uL (4.30-5.70) Hemoglobin 12.5 g/dL (13.0-17.5) Hematocrit 40.8 % (39.0-53.0) Mean Corpuscular Volume 92 fL (79-100) Mean Corpuscular Hemoglobin 28 pg (25-35) Mean Corpuscular Hemoglobin Concent 31 g/dL (31-37) Red Cell Distribution Width 16.1 % (11.5-14.5) Platelet Count 126 x10^3/uL (140-400) Neutrophils (%) (Auto) 59 % (31-73) Lymphocytes (%) (Auto) 26 % (24-48) Monocytes (%) (Auto) 8 % (0-9) Eosinophils (%) (Auto) 7 % (0-3) Basophils (%) (Auto) 1 % (0-3) Neutrophils # (Auto) 4.3 x10^3uL (1.8-7.7) Lymphocytes # (Auto) 1.9 x10^3/uL (1.0-4.8) Monocytes # (Auto) 0.6 x10^3/uL (0.0-1.1) Eosinophils # (Auto) 0.5 x10^3/uL (0.0-0.7) Basophils # (Auto) 0.1 x10^3/uL (0.0-0.2) Sodium Level 160 mmol/L (136-145) Potassium Level 3.9 mmol/L (3.5-5.1) Chloride Level 126 mmol/L (98-107) Carbon Dioxide Level 25 mmol/L (21-32) Anion Gap 9 (6-14) Blood Urea Nitrogen 40 mg/dL (8-26) Creatinine 2.5 mg/dL (0.7-1.3) Estimated GFR (Cockcroft-Gault) 24.6 BUN/Creatinine Ratio 16 (6-20) Glucose Level 193 mg/dL (70-99) Lactic Acid Level 2.2 mmol/L (0.4-2.0) Calcium Level 8.7 mg/dL (8.5-10.1) Phosphorus Level 2.2 mg/dL (2.6-4.7) Magnesium Level 2.6 mg/dL (1.8-2.4) Total Bilirubin 0.5 mg/dL (0.2-1.0) Aspartate Amino Transf (AST/SGOT) 47 U/L (15-37) Alanine Aminotransferase (ALT/SGPT) 33 U/L (16-63) Alkaline Phosphatase 99 U/L (46-116) Total Protein 6.7 g/dL (6.4-8.2) Albumin 2.2 g/dL (3.4-5.0) Albumin/Globulin Ratio 0.5 (1.0-1.7) Laboratory Tests Test 04/06/17 12:31 04/06/17 16:34 04/06/17 20:57 04/07/17 03:15 Glucose (Fingerstick) 182 mg/dL (70-99) 177 mg/dL (70-99) 175 mg/dL (70-99) White Blood Count 7.3 x10^3/uL (4.0-11.0) Red Blood Count 4.44 x10^6/uL (4.30-5.70) Hemoglobin 12.5 g/dL (13.0-17.5) Hematocrit 40.8 % (39.0-53.0) Mean Corpuscular Volume 92 fL (79-100) Mean Corpuscular Hemoglobin 28 pg (25-35) Mean Corpuscular Hemoglobin Concent 31 g/dL (31-37) Red Cell Distribution Width 16.1 % (11.5-14.5) Platelet Count 126 x10^3/uL (140-400) Neutrophils (%) (Auto) 59 % (31-73) Lymphocytes (%) (Auto) 26 % (24-48) Monocytes (%) (Auto) 8 % (0-9) Eosinophils (%) (Auto) 7 % (0-3) Basophils (%) (Auto) 1 % (0-3) Neutrophils # (Auto) 4.3 x10^3uL (1.8-7.7) Lymphocytes # (Auto) 1.9 x10^3/uL (1.0-4.8) Monocytes # (Auto) 0.6 x10^3/uL (0.0-1.1) Eosinophils # (Auto) 0.5 x10^3/uL (0.0-0.7) Basophils # (Auto) 0.1 x10^3/uL (0.0-0.2) Sodium Level 160 mmol/L (136-145) Potassium Level 3.9 mmol/L (3.5-5.1) Chloride Level 126 mmol/L (98-107) Carbon Dioxide Level 25 mmol/L (21-32) Anion Gap 9 (6-14) Blood Urea Nitrogen 40 mg/dL (8-26) Creatinine 2.5 mg/dL (0.7-1.3) Estimated GFR (Cockcroft-Gault) 24.6 BUN/Creatinine Ratio 16 (6-20) Glucose Level 193 mg/dL (70-99) Lactic Acid Level 2.2 mmol/L (0.4-2.0) Calcium Level 8.7 mg/dL (8.5-10.1) Phosphorus Level 2.2 mg/dL (2.6-4.7) Magnesium Level 2.6 mg/dL (1.8-2.4) Total Bilirubin 0.5 mg/dL (0.2-1.0) Aspartate Amino Transf (AST/SGOT) 47 U/L (15-37) Alanine Aminotransferase (ALT/SGPT) 33 U/L (16-63) Alkaline Phosphatase 99 U/L (46-116) Total Protein 6.7 g/dL (6.4-8.2) Albumin 2.2 g/dL (3.4-5.0) Albumin/Globulin Ratio 0.5 (1.0-1.7) Test 04/07/17 07:46 Glucose (Fingerstick) 166 mg/dL (70-99) Microbiology 04/04/17 Blood Culture - Preliminary, Resulted NO GROWTH AFTER 2 DAYS Medications Current Medications Piperacillin Sod/ Tazobactam Sod (Zosyn Per Pharmacy) 1 each PRN DAILY PRN MC SEE COMMENTS; Start 04/04/17 at 16:15 Vancomycin HCl (Vanco Per Pharmacy) 1 each PRN DAILY PRN MC SEE COMMENTS Last administered on 04/05/17 09:33; Start 04/04/17 at 16:15; Stop 04/05/17 at 20 :49; Status DC Vancomycin HCl 1.75 gm/Dextrose 500 ml @ 250 mls/hr 1X ONCE IV Last administered on 04/04/17 16:54; Start 04/04/17 at 16:30; Stop 04/04/17 at 18 :29; Status DC Piperacillin Sod/ Tazobactam Sod (Zosyn) 2.25 gm 1X ONCE IVP Last administered on 04/04/17 16:53; Start 04/04/17 at 16:30; Stop 04/04/17 at 16 :31; Status DC Sodium Chloride 1,000 ml @ 1,000 mls/hr 1X ONCE IV Last administered on 04/04 16:54; Start 04/04/17 at 16:30; Stop 04/04/17 at 17:29; Status DC Sodium Chloride 1,000 ml @ 1,000 mls/hr 1X ONCE IV Last administered on 04/04 16:54; Start 04/04/17 at 16:30; Stop 04/04/17 at 17:29; Status DC Ondansetron HCl (Zofran) 4 mg PRN Q8HRS PRN IV NAUSEA/VOMITING; Start at 16:30; Stop 04/05/17 at 16:29; Status DC Fentanyl Citrate (Fentanyl 2ml Vial) 50 mcg PRN Q1HR PRN IV PAIN; Start at 16:30; Stop 04/04/17 at 20:31; Status DC Sodium Chloride 1,000 ml @ 200 mls/hr Q5H IV Last administered on 04/05/17 00:00; Start 04/04/17 at 16:19; Stop 04/05/17 at 06:30; Status DC Acetaminophen (Tylenol) 650 mg PRN Q4HRS PRN PO FEVER; Start 04/04/17 at 16:30 ; Stop 04/05/17 at 09:40; Status DC Piperacillin Sod/ Tazobactam Sod (Zosyn) 2.25 gm Q8HRS IVP Last administered on 04/06/17 14:09; Start 04/04/17 at 23:00; Stop 04/06/17 at 14:57; Status DC Vancomycin HCl 1 each 1X ONCE MC ; Start 04/06/17 at 17:00; Stop 04/06/17 at 17:01; Status Cancel Acetaminophen (Tylenol) 650 mg PRN Q4HRS PRN PO MILD PAIN/TEMP; Start at 20:30 Ipratropium [place] (Atrovent) 0.2 mg PRN Q6HRS PRN NEB SHORTNESS OF BREATH; Start 04/04/17 at 20:30 Insulin Detemir (Levemir) 7 units BID SQ Last administered on 04/07/17 08:30 ; Start 04/04/17 at 21:00 Insulin Aspart (NovoLOG) 0-5 UNITS TIDWMEALS SQ Last administered on 08:29; Start 04/05/17 at 08:00 Dextrose (Dextrose 50%-Water Syringe) 12.5 gm PRN Q15MIN PRN IV SEE COMMENTS; Start 04/04/17 at 20:30 Sodium Chloride 1,000 ml @ 200 mls/hr Q5H IV Last administered on 04/05/17 06:11; Start 04/05/17 at 06:15; Stop 04/05/17 at 09:49; Status DC Magnesium Sulfate/ Dextrose 50 ml @ 25 mls/hr PRN DAILY PRN IV for Mag < 1.7 on am labs; Start 04/05/17 at 09:45 Amino Acids/ Glycerin/ Electrolytes 1,000 ml @ 125 mls/hr Q8H IV Last administered on 04/06/17 23:34; Start 04/05/17 at 09:45 Sodium Chloride 500 ml @ 0 mls/hr QID PRN IV UO< 30cc/hr over previous 6hrs; Start 04/05/17 at 09:45 Linezolid (Zyvox) 600 mg BID PO Last administered on 04/07/17 08:18; Start 04/05/17 at 21:00 Linezolid 300 ml @ 300 mls/hr 1X ONCE IV Last administered on 04/06/17 08: 19; Start 04/06/17 at 09:00; Stop 04/06/17 at 09:59; Status DC Piperacillin Sod/ Tazobactam Sod (Zosyn) 3.375 gm Q6HRS IVP Last administered on 04/07/17 04:58; Start 04/06/17 at 18:00 Ondansetron HCl (Zofran) 4 mg PRN Q6HRS PRN IV NAUSEA/VOMITING; Start at 10:30 Potassium Phosphate 13.6 mmol/Sodium Chloride 104.5333 ml @ 51.221 m... Q2H IV ; Start 04/07/17 at 11:00; Stop 04/07/17 at 16:59 Active Scripts Active Reported Tylenol (Acetaminophen) 325 Mg Tablet 2 Tab PO PRN Q4HRS Tramadol Hcl 50 Mg Tablet 1 Tab PO PRN Q6HRS Terbinafine Hcl 250 Mg Tablet 1 Tab PO DAILY Senokot-S Tablet (Sennosides/Docusate Sodium) 1 Each Tablet 2 Tab PO BID Seroquel (Quetiapine Fumarate) 25 Mg Tablet 1 Tab PO BID Oxycodone Hcl 5 Mg Tablet 0.5 Tab PO Q4HRS Novolog (Insulin Aspart) 100 Unit/1 Ml Cartridge 100 Unit SQ Miralax (Polyethylene Glycol 3350) 17 Gm Powd.pack 1 Packet PO DAILY Metformin Hcl 500 Mg Tablet 500 Mg PO BIDWMEALS Dulcolax (Bisacodyl) 5 Mg Tablet.dr 5 Mg PO DAILY Alprazolam 0.5 Mg Tablet 0.5 Mg PO PRN Q8HRS PRN Ipratropium [place] 0.2 Mg/1 Ml Solution 1 Vial NEB PRN Q6HRS PRN Aricept (Donepezil Hcl) 10 Mg Tablet 1 Tab PO DAILY Lasix (Furosemide) 20 Mg Tablet 1.5 Tab PO DAILY Levemir (Insulin Detemir) 100 Unit/1 Ml Vial 14 Unit SQ DAILY08 Levothyroxine Sodium 50 Mcg Tablet 1 Tab PO DAILY Namenda (Memantine Hcl) 10 Mg Tablet 10 Mg PO AFTRNOON Potassium Chloride Oral Liquid (Potassium Chloride) 20 Meq/15 Ml Liquid 7.5 Meq PO DAILY Simvastatin 10 Mg Tablet 0.5 Tab PO QHS Levemir (Insulin Detemir) 100 Unit/1 Ml Vial 14 Unit SQ HS Valproic Acid (Valproate Sodium) 250 Mg/5 Ml Solution 375 Mg PO BID Melatonin 3 Mg Tablet 1 Tab PO QHS Vitamin B-12 (Cyanocobalamin (Vitamin B-12)) 1,000 Mcg Tablet 500 Mcg PO DAILY Vitals/I & O Vital Sign - Last 24 Hours 04/06/17 04/06/17 04/06/17 04/06/17 15:00 19:00 20:00 23:00 Temp 98.5 97.7 97.5 98.5 97.7 97.5 Pulse 74 66 74 Resp 19 19 B/P (MAP) 106/55 (72) 106/33 (57) 93/57 (69) Pulse Ox 99 97 96 O2 Delivery Nasal Cannula Nasal Cannula Nasal Cannula Nasal Cannula O2 Flow Rate 2.0 2.0 2.0 04/07/17 04/07/17 04/07/17 03:00 07:00 08:00 Temp 98.1 97.7 98.1 97.7 Pulse 67 83 Resp 19 18 B/P (MAP) 92/52 (65) 162/72 (102) Pulse Ox 96 96 O2 Delivery Nasal Cannula Nasal Cannula Room Air O2 Flow Rate 2.0 2.0 Intake and Output 04/06/17 04/06/17 04/07/17 15:00 23:00 07:00 Intake Total 0 ml 1000 ml Output Total 900 ml Balance 0 ml 100 ml LAURA LIZ MD Apr 07, 2017 11:12
[2017-04-07] MEDS ORDERED: MORPHINE SULFATE 4 MG/ML DISP.SYRIN. IV PRN ×2 (11:15→11:45)
[2017-04-07] MEDS: POTASSIUM PHOSPHATE DIBASIC 13.6 MMOL in IV NORMAL SALINE 100ML 100 ML IV SCH ×3 (11:31→15:00)
[2017-04-07] MEDS: AMINO AC 3%/ELECTROLYTE/GLYCER 1,000 ML IV SCH ×3 (11:32→19:15)
[2017-04-07 15:00] VITALS: BP 121/62
[2017-04-07 19:00] VITALS: BP 105/59
[2017-04-07 23:00] VITALS: BP 103/60
[2017-04-08] MEDS: AMINO AC 3%/ELECTROLYTE/GLYCER 1,000 ML IV SCH ×3 (01:56→17:33)
[2017-04-08 03:00] VITALS: BP_SYST 103; BP_SYST 117; BP_DIAS 60; BP_DIAS 63
[2017-04-08 03:46] LABS: ALBUMIN 2.1 g/dL (3.4-5.0); CALCIUM 8.2 mg/dL (8.5-10.1); CREATININE 2.4 mg/dL (0.7-1.3); GFR 25.7; MAGNESIUM 2.4 mg/dL (1.8-2.4); PHOSPHORUS 3.3 mg/dL (2.6-4.7); POTASSIUM 4.5 mmol/L (3.5-5.1)
[2017-04-08] MEDS: PIPERACILLIN/TAZO IV Push 3.375 GM VIAL. IVP SCH ×3 (05:07→16:46)
[2017-04-08 07:00] VITALS: BP 134/58
[2017-04-08] MEDS: LINEZOLID 600 MG TABLET PO SCH (07:34)
[2017-04-08] MEDS: INSULIN ASPART 300 UNITS/3 ML INSULN.PEN SQ SCH ×3 (07:35→16:46)
[2017-04-08] MEDS: INSULIN DETEMIR 300 UNITS/3 ML INSULN.PEN. SQ SCH (08:47)
--- NOTE | 2017-04-08 09:36 | PDOC ---
ORTHO PROGRESS NOTES Subjective Does not verbalize. Resting comfortably Vitals Vital Signs Date Time Temp Pulse Resp B/P (MAP) Pulse Ox O2 Delivery O2 Flow Rate FiO2 04/08/17 08:00 Nasal Cannula 2.0 04/08/17 07:00 98.1 64 19 134/58 (83) 98 98.1 Labs Laboratory Tests Test 04/06/17 12:31 04/06/17 16:34 04/06/17 20:57 04/07/17 03:15 Glucose (Fingerstick) 182 mg/dL (70-99) 177 mg/dL (70-99) 175 mg/dL (70-99) White Blood Count 7.3 x10^3/uL (4.0-11.0) Red Blood Count 4.44 x10^6/uL (4.30-5.70) Hemoglobin 12.5 g/dL (13.0-17.5) Hematocrit 40.8 % (39.0-53.0) Mean Corpuscular Volume 92 fL (79-100) Mean Corpuscular Hemoglobin 28 pg (25-35) Mean Corpuscular Hemoglobin Concent 31 g/dL (31-37) Red Cell Distribution Width 16.1 % (11.5-14.5) Platelet Count 126 x10^3/uL (140-400) Neutrophils (%) (Auto) 59 % (31-73) Lymphocytes (%) (Auto) 26 % (24-48) Monocytes (%) (Auto) 8 % (0-9) Eosinophils (%) (Auto) 7 % (0-3) Basophils (%) (Auto) 1 % (0-3) Neutrophils # (Auto) 4.3 x10^3uL (1.8-7.7) Lymphocytes # (Auto) 1.9 x10^3/uL (1.0-4.8) Monocytes # (Auto) 0.6 x10^3/uL (0.0-1.1) Eosinophils # (Auto) 0.5 x10^3/uL (0.0-0.7) Basophils # (Auto) 0.1 x10^3/uL (0.0-0.2) Sodium Level 160 mmol/L (136-145) Potassium Level 3.9 mmol/L (3.5-5.1) Chloride Level 126 mmol/L (98-107) Carbon Dioxide Level 25 mmol/L (21-32) Anion Gap 9 (6-14) Blood Urea Nitrogen 40 mg/dL (8-26) Creatinine 2.5 mg/dL (0.7-1.3) Estimated GFR (Cockcroft-Gault) 24.6 BUN/Creatinine Ratio 16 (6-20) Glucose Level 193 mg/dL (70-99) Lactic Acid Level 2.2 mmol/L (0.4-2.0) Calcium Level 8.7 mg/dL (8.5-10.1) Phosphorus Level 2.2 mg/dL (2.6-4.7) Magnesium Level 2.6 mg/dL (1.8-2.4) Total Bilirubin 0.5 mg/dL (0.2-1.0) Aspartate Amino Transf (AST/SGOT) 47 U/L (15-37) Alanine Aminotransferase (ALT/SGPT) 33 U/L (16-63) Alkaline Phosphatase 99 U/L (46-116) Total Protein 6.7 g/dL (6.4-8.2) Albumin 2.2 g/dL (3.4-5.0) Albumin/Globulin Ratio 0.5 (1.0-1.7) Test 04/07/17 07:46 04/07/17 11:37 04/07/17 17:33 04/08/17 03:20 Glucose (Fingerstick) 166 mg/dL (70-99) 159 mg/dL (70-99) 142 mg/dL (70-99) Sodium Level 154 mmol/L (136-145) Potassium Level 4.5 mmol/L (3.5-5.1) Chloride Level 121 mmol/L (98-107) Carbon Dioxide Level 23 mmol/L (21-32) Anion Gap 10 (6-14) Blood Urea Nitrogen 35 mg/dL (8-26) Creatinine 2.4 mg/dL (0.7-1.3) Estimated GFR (Cockcroft-Gault) 25.7 Glucose Level 192 mg/dL (70-99) Lactic Acid Level 2.1 mmol/L (0.4-2.0) Calcium Level 8.2 mg/dL (8.5-10.1) Phosphorus Level 3.3 mg/dL (2.6-4.7) Magnesium Level 2.4 mg/dL (1.8-2.4) Albumin 2.1 g/dL (3.4-5.0) Test 04/08/17 07:32 Glucose (Fingerstick) 181 mg/dL (70-99) Laboratory Tests Test 04/07/17 11:37 04/07/17 17:33 04/08/17 03:20 04/08/17 07:32 Glucose (Fingerstick) 159 mg/dL (70-99) 142 mg/dL (70-99) 181 mg/dL (70-99) Sodium Level 154 mmol/L (136-145) Potassium Level 4.5 mmol/L (3.5-5.1) Chloride Level 121 mmol/L (98-107) Carbon Dioxide Level 23 mmol/L (21-32) Anion Gap 10 (6-14) Blood Urea Nitrogen 35 mg/dL (8-26) Creatinine 2.4 mg/dL (0.7-1.3) Estimated GFR (Cockcroft-Gault) 25.7 Glucose Level 192 mg/dL (70-99) Lactic Acid Level 2.1 mmol/L (0.4-2.0) Calcium Level 8.2 mg/dL (8.5-10.1) Phosphorus Level 3.3 mg/dL (2.6-4.7) Magnesium Level 2.4 mg/dL (1.8-2.4) Albumin 2.1 g/dL (3.4-5.0) Notes He is resting comfortably but does easily awakened. The overall appearance of his right hip incision is unchanged. No appreciable fluctuance. Assessment and Plan I reviewed the CAT scan. Normal expected postoperative findings were present. I do not think I have anything further to offer in the care of this gentleman at this time. YENNY SARAVIA II, MD Apr 08, 2017 09:36
--- NOTE | 2017-04-08 10:07 | PDOC ---
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 DNR PAlliative to meet later PLAn: NPO, Procalamine now at 125cc.hr DNR Palliative meet later Supportive care morphine for pain fam agreeable to hospice History of Present Illness History of Present Illness Na 160 from 167 Multiple fam members at bedside - ALL VERY REALISTIC Does not want PEG HAs been bed bound and not recognzing family maybe for 6-7 yrs now I introduced hospice, very much agreeable to it Full code per chart PLAN: PAlliative consult Procalamine rate to inc per renal - dw Dr Cortez sUPPROTIVE CARE/MEDS dW whole family Vitals Vitals Vital Signs Date Time Temp Pulse Resp B/P (MAP) Pulse Ox O2 Delivery O2 Flow Rate FiO2 04/08/17 08:00 Nasal Cannula 2.0 04/08/17 07:00 98.1 64 19 134/58 (83) 98 98.1 Physical Exam General: Alert, Cooperative, No acute distress, Other (disoriented) Heart: Regular rate, No murmurs Lungs: Clear Abdomen: Normal bowel sounds Extremities: No clubbing Skin: No rashes Labs LABS Laboratory Tests Test 04/07/17 11:37 04/07/17 17:33 04/08/17 03:20 04/08/17 07:32 Glucose (Fingerstick) 159 mg/dL (70-99) 142 mg/dL (70-99) 181 mg/dL (70-99) Sodium Level 154 mmol/L (136-145) Potassium Level 4.5 mmol/L (3.5-5.1) Chloride Level 121 mmol/L (98-107) Carbon Dioxide Level 23 mmol/L (21-32) Anion Gap 10 (6-14) Blood Urea Nitrogen 35 mg/dL (8-26) Creatinine 2.4 mg/dL (0.7-1.3) Estimated GFR (Cockcroft-Gault) 25.7 Glucose Level 192 mg/dL (70-99) Lactic Acid Level 2.1 mmol/L (0.4-2.0) Calcium Level 8.2 mg/dL (8.5-10.1) Phosphorus Level 3.3 mg/dL (2.6-4.7) Magnesium Level 2.4 mg/dL (1.8-2.4) Albumin 2.1 g/dL (3.4-5.0) Review of Systems Review of Systems non verbal Assessment and Plan Assessmemt and Plan Problems Medical Problems: (1) Acute renal failure Status: Acute (2) Altered mental status Status: Acute (3) Hypernatremia Status: Acute Problems: Comment Review of Relevant I have reviewed the following items sofie (where applicable) has been applied. Labs Laboratory Tests Test 04/06/17 12:31 04/06/17 16:34 04/06/17 20:57 04/07/17 03:15 Glucose (Fingerstick) 182 mg/dL (70-99) 177 mg/dL (70-99) 175 mg/dL (70-99) White Blood Count 7.3 x10^3/uL (4.0-11.0) Red Blood Count 4.44 x10^6/uL (4.30-5.70) Hemoglobin 12.5 g/dL (13.0-17.5) Hematocrit 40.8 % (39.0-53.0) Mean Corpuscular Volume 92 fL (79-100) Mean Corpuscular Hemoglobin 28 pg (25-35) Mean Corpuscular Hemoglobin Concent 31 g/dL (31-37) Red Cell Distribution Width 16.1 % (11.5-14.5) Platelet Count 126 x10^3/uL (140-400) Neutrophils (%) (Auto) 59 % (31-73) Lymphocytes (%) (Auto) 26 % (24-48) Monocytes (%) (Auto) 8 % (0-9) Eosinophils (%) (Auto) 7 % (0-3) Basophils (%) (Auto) 1 % (0-3) Neutrophils # (Auto) 4.3 x10^3uL (1.8-7.7) Lymphocytes # (Auto) 1.9 x10^3/uL (1.0-4.8) Monocytes # (Auto) 0.6 x10^3/uL (0.0-1.1) Eosinophils # (Auto) 0.5 x10^3/uL (0.0-0.7) Basophils # (Auto) 0.1 x10^3/uL (0.0-0.2) Sodium Level 160 mmol/L (136-145) Potassium Level 3.9 mmol/L (3.5-5.1) Chloride Level 126 mmol/L (98-107) Carbon Dioxide Level 25 mmol/L (21-32) Anion Gap 9 (6-14) Blood Urea Nitrogen 40 mg/dL (8-26) Creatinine 2.5 mg/dL (0.7-1.3) Estimated GFR (Cockcroft-Gault) 24.6 BUN/Creatinine Ratio 16 (6-20) Glucose Level 193 mg/dL (70-99) Lactic Acid Level 2.2 mmol/L (0.4-2.0) Calcium Level 8.7 mg/dL (8.5-10.1) Phosphorus Level 2.2 mg/dL (2.6-4.7) Magnesium Level 2.6 mg/dL (1.8-2.4) Total Bilirubin 0.5 mg/dL (0.2-1.0) Aspartate Amino Transf (AST/SGOT) 47 U/L (15-37) Alanine Aminotransferase (ALT/SGPT) 33 U/L (16-63) Alkaline Phosphatase 99 U/L (46-116) Total Protein 6.7 g/dL (6.4-8.2) Albumin 2.2 g/dL (3.4-5.0) Albumin/Globulin Ratio 0.5 (1.0-1.7) Test 04/07/17 07:46 04/07/17 11:37 04/07/17 17:33 04/08/17 03:20 Glucose (Fingerstick) 166 mg/dL (70-99) 159 mg/dL (70-99) 142 mg/dL (70-99) Sodium Level 154 mmol/L (136-145) Potassium Level 4.5 mmol/L (3.5-5.1) Chloride Level 121 mmol/L (98-107) Carbon Dioxide Level 23 mmol/L (21-32) Anion Gap 10 (6-14) Blood Urea Nitrogen 35 mg/dL (8-26) Creatinine 2.4 mg/dL (0.7-1.3) Estimated GFR (Cockcroft-Gault) 25.7 Glucose Level 192 mg/dL (70-99) Lactic Acid Level 2.1 mmol/L (0.4-2.0) Calcium Level 8.2 mg/dL (8.5-10.1) Phosphorus Level 3.3 mg/dL (2.6-4.7) Magnesium Level 2.4 mg/dL (1.8-2.4) Albumin 2.1 g/dL (3.4-5.0) Test 04/08/17 07:32 Glucose (Fingerstick) 181 mg/dL (70-99) Laboratory Tests Test 04/07/17 11:37 04/07/17 17:33 04/08/17 03:20 04/08/17 07:32 Glucose (Fingerstick) 159 mg/dL (70-99) 142 mg/dL (70-99) 181 mg/dL (70-99) Sodium Level 154 mmol/L (136-145) Potassium Level 4.5 mmol/L (3.5-5.1) Chloride Level 121 mmol/L (98-107) Carbon Dioxide Level 23 mmol/L (21-32) Anion Gap 10 (6-14) Blood Urea Nitrogen 35 mg/dL (8-26) Creatinine 2.4 mg/dL (0.7-1.3) Estimated GFR (Cockcroft-Gault) 25.7 Glucose Level 192 mg/dL (70-99) Lactic Acid Level 2.1 mmol/L (0.4-2.0) Calcium Level 8.2 mg/dL (8.5-10.1) Phosphorus Level 3.3 mg/dL (2.6-4.7) Magnesium Level 2.4 mg/dL (1.8-2.4) Albumin 2.1 g/dL (3.4-5.0) Microbiology 04/04/17 Blood Culture - Preliminary, Resulted NO GROWTH AFTER 3 DAYS Medications Current Medications Piperacillin Sod/ Tazobactam Sod (Zosyn Per Pharmacy) 1 each PRN DAILY PRN MC SEE COMMENTS; Start 04/04/17 at 16:15 Vancomycin HCl (Vanco Per Pharmacy) 1 each PRN DAILY PRN MC SEE COMMENTS Last administered on 04/05/17 09:33; Start 04/04/17 at 16:15; Stop 04/05/17 at 20 :49; Status DC Vancomycin HCl 1.75 gm/Dextrose 500 ml @ 250 mls/hr 1X ONCE IV Last administered on 04/04/17 16:54; Start 04/04/17 at 16:30; Stop 04/04/17 at 18 :29; Status DC Piperacillin Sod/ Tazobactam Sod (Zosyn) 2.25 gm 1X ONCE IVP Last administered on 04/04/17 16:53; Start 04/04/17 at 16:30; Stop 04/04/17 at 16 :31; Status DC Sodium Chloride 1,000 ml @ 1,000 mls/hr 1X ONCE IV Last administered on 04/04 16:54; Start 04/04/17 at 16:30; Stop 04/04/17 at 17:29; Status DC Sodium Chloride 1,000 ml @ 1,000 mls/hr 1X ONCE IV Last administered on 04/04 16:54; Start 04/04/17 at 16:30; Stop 04/04/17 at 17:29; Status DC Ondansetron HCl (Zofran) 4 mg PRN Q8HRS PRN IV NAUSEA/VOMITING; Start at 16:30; Stop 04/05/17 at 16:29; Status DC Fentanyl Citrate (Fentanyl 2ml Vial) 50 mcg PRN Q1HR PRN IV PAIN; Start at 16:30; Stop 04/04/17 at 20:31; Status DC Sodium Chloride 1,000 ml @ 200 mls/hr Q5H IV Last administered on 04/05/17 00:00; Start 04/04/17 at 16:19; Stop 04/05/17 at 06:30; Status DC Acetaminophen (Tylenol) 650 mg PRN Q4HRS PRN PO FEVER; Start 04/04/17 at 16:30 ; Stop 04/05/17 at 09:40; Status DC Piperacillin Sod/ Tazobactam Sod (Zosyn) 2.25 gm Q8HRS IVP Last administered on 04/06/17 14:09; Start 04/04/17 at 23:00; Stop 04/06/17 at 14:57; Status DC Vancomycin HCl 1 each 1X ONCE MC ; Start 04/06/17 at 17:00; Stop 04/06/17 at 17:01; Status Cancel Acetaminophen (Tylenol) 650 mg PRN Q4HRS PRN PO MILD PAIN/TEMP; Start at 20:30 Ipratropium [place] (Atrovent) 0.2 mg PRN Q6HRS PRN NEB SHORTNESS OF BREATH; Start 04/04/17 at 20:30 Insulin Detemir (Levemir) 7 units BID SQ Last administered on 04/08/17 08:47 ; Start 04/04/17 at 21:00 Insulin Aspart (NovoLOG) 0-5 UNITS TIDWMEALS SQ Last administered on 12:13; Start 04/05/17 at 08:00 Dextrose (Dextrose 50%-Water Syringe) 12.5 gm PRN Q15MIN PRN IV SEE COMMENTS; Start 04/04/17 at 20:30 Sodium Chloride 1,000 ml @ 200 mls/hr Q5H IV Last administered on 04/05/17 06:11; Start 04/05/17 at 06:15; Stop 04/05/17 at 09:49; Status DC Magnesium Sulfate/ Dextrose 50 ml @ 25 mls/hr PRN DAILY PRN IV for Mag < 1.7 on am labs; Start 04/05/17 at 09:45 Amino Acids/ Glycerin/ Electrolytes 1,000 ml @ 125 mls/hr Q8H IV Last administered on 04/08/17 08:43; Start 04/05/17 at 09:45 Sodium Chloride 500 ml @ 0 mls/hr QID PRN IV UO< 30cc/hr over previous 6hrs; Start 04/05/17 at 09:45 Linezolid (Zyvox) 600 mg BID PO Last administered on 04/06/17 21:50; Start 04/05/17 at 21:00 Linezolid 300 ml @ 300 mls/hr 1X ONCE IV Last administered on 04/06/17 08: 19; Start 04/06/17 at 09:00; Stop 04/06/17 at 09:59; Status DC Piperacillin Sod/ Tazobactam Sod (Zosyn) 3.375 gm Q6HRS IVP Last administered on 04/08/17 05:07; Start 04/06/17 at 18:00 Ondansetron HCl (Zofran) 4 mg PRN Q6HRS PRN IV NAUSEA/VOMITING; Start at 10:30 Potassium Phosphate 13.6 mmol/Sodium Chloride 104.5333 ml @ 51.221 m... Q2H IV Last administered on 04/07/17 15:00; Start 04/07/17 at 11:00; Stop at 16:59; Status DC Morphine Sulfate 1 mg PRN Q2HR PRN IV PAIN Last administered on 04/07/17 11: 33; Start 04/07/17 at 11:15; Stop 04/07/17 at 11:44; Status DC Morphine Sulfate 2 mg PRN Q2HR PRN IV PAIN; Start 04/07/17 at 11:45 Lorazepam (Ativan) 2 mg PRN Q4HRS PRN IV ANXIETY / AGITATION Last administered on 04/08/17 01:56; Start 04/07/17 at 11:45 Active Scripts Active Reported Tylenol (Acetaminophen) 325 Mg Tablet 2 Tab PO PRN Q4HRS Tramadol Hcl 50 Mg Tablet 1 Tab PO PRN Q6HRS Terbinafine Hcl 250 Mg Tablet 1 Tab PO DAILY Senokot-S Tablet (Sennosides/Docusate Sodium) 1 Each Tablet 2 Tab PO BID Seroquel (Quetiapine Fumarate) 25 Mg Tablet 1 Tab PO BID Oxycodone Hcl 5 Mg Tablet 0.5 Tab PO Q4HRS Novolog (Insulin Aspart) 100 Unit/1 Ml Cartridge 100 Unit SQ Miralax (Polyethylene Glycol 3350) 17 Gm Powd.pack 1 Packet PO DAILY Metformin Hcl 500 Mg Tablet 500 Mg PO BIDWMEALS Dulcolax (Bisacodyl) 5 Mg Tablet.dr 5 Mg PO DAILY Alprazolam 0.5 Mg Tablet 0.5 Mg PO PRN Q8HRS PRN Ipratropium [place] 0.2 Mg/1 Ml Solution 1 Vial NEB PRN Q6HRS PRN Aricept (Donepezil Hcl) 10 Mg Tablet 1 Tab PO DAILY Lasix (Furosemide) 20 Mg Tablet 1.5 Tab PO DAILY Levemir (Insulin Detemir) 100 Unit/1 Ml Vial 14 Unit SQ DAILY08 Levothyroxine Sodium 50 Mcg Tablet 1 Tab PO DAILY Namenda (Memantine Hcl) 10 Mg Tablet 10 Mg PO AFTRNOON Potassium Chloride Oral Liquid (Potassium Chloride) 20 Meq/15 Ml Liquid 7.5 Meq PO DAILY Simvastatin 10 Mg Tablet 0.5 Tab PO QHS Levemir (Insulin Detemir) 100 Unit/1 Ml Vial 14 Unit SQ HS Valproic Acid (Valproate Sodium) 250 Mg/5 Ml Solution 375 Mg PO BID Melatonin 3 Mg Tablet 1 Tab PO QHS Vitamin B-12 (Cyanocobalamin (Vitamin B-12)) 1,000 Mcg Tablet 500 Mcg PO DAILY Vitals/I & O Vital Sign - Last 24 Hours 04/07/17 04/07/17 04/07/17 04/07/17 11:00 11:33 13:07 15:00 Temp 98.9 98.4 98.9 98.4 Pulse 75 75 Resp 18 18 B/P (MAP) 104/64 (77) 121/62 (81) Pulse Ox 97 99 97 O2 Delivery Nasal Cannula Room Air Nasal Cannula Nasal Cannula O2 Flow Rate 2.0 2.0 2.0 04/07/17 04/07/17 04/07/17 04/08/17 19:00 20:00 23:00 03:00 Temp 98.5 98.9 98.9 98.5 98.9 98.9 Pulse 69 72 72 Resp 20 20 20 B/P (MAP) 105/59 (74) 103/60 (74) 103/60 (74) Pulse Ox 97 98 98 O2 Delivery Nasal Cannula Nasal Cannula Nasal Cannula Nasal Cannula O2 Flow Rate 2.0 2.0 2.0 2.0 04/08/17 04/08/17 04/08/17 03:00 07:00 08:00 Temp 97.9 98.1 97.9 98.1 Pulse 86 64 Resp 20 19 B/P (MAP) 117/63 (81) 134/58 (83) Pulse Ox 98 O2 Delivery Nasal Cannula Nasal Cannula Nasal Cannula O2 Flow Rate 2.0 2.0 Intake and Output 04/07/17 04/07/17 04/08/17 15:00 23:00 07:00 Intake Total 150 ml 1000 ml Output Total 775 ml 700 ml Balance -625 ml 300 ml Nutrition Consultation Dietary Evaluation: Recommendations by RD: PPN/TPN Comments: ppn for short term nutrition Expected Outcomes/Goals: comfort foods vs tube feeding Interpretation of weight loss: >5% in 1 month Malnutrition Findings: Food and Nutrition Intake (Sev: <50% est energy req 5days Weight Status: Overweight LAURA LIZ MD Apr 08, 2017 10:07
--- NOTE | 2017-04-08 10:32 | PDOC ---
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 SKIN: No rash IV: ok Labs Lab Laboratory Tests Test 04/07/17 11:37 04/07/17 17:33 04/08/17 03:20 04/08/17 07:32 Glucose (Fingerstick) 159 mg/dL (70-99) 142 mg/dL (70-99) 181 mg/dL (70-99) Sodium Level 154 mmol/L (136-145) Potassium Level 4.5 mmol/L (3.5-5.1) Chloride Level 121 mmol/L (98-107) Carbon Dioxide Level 23 mmol/L (21-32) Anion Gap 10 (6-14) Blood Urea Nitrogen 35 mg/dL (8-26) Creatinine 2.4 mg/dL (0.7-1.3) Estimated GFR (Cockcroft-Gault) 25.7 Glucose Level 192 mg/dL (70-99) Lactic Acid Level 2.1 mmol/L (0.4-2.0) Calcium Level 8.2 mg/dL (8.5-10.1) Phosphorus Level 3.3 mg/dL (2.6-4.7) Magnesium Level 2.4 mg/dL (1.8-2.4) Albumin 2.1 g/dL (3.4-5.0) Objective Assessment Leukocytosis, improved Lactic acidosis, improved s/p right hip hemiarthroplasty, Mar [address] Burgess, now + drainage; no fluctuance, redness or tenderness; CT neg fluid collection Acute encephalopathy, improving JOSEFINA Dehydration Alzheimer's Plan Plan of Care Zyxox and Zosyn,, BC NGTD f/u am labs and cultures pt likely going to hospice as per RN JAS CLAUDIO MD Apr 08, 2017 10:32
--- NOTE | 2017-04-08 10:49 | PDOC ---
SUBJECTIVE ROS JOSEFINA/ CKD III Remains min verbal so unable to get ROS from pt OBJECTIVE Vital Signs Vital Signs Date Time Temp Pulse Resp B/P (MAP) Pulse Ox O2 Delivery O2 Flow Rate FiO2 04/08/17 08:00 Nasal Cannula 2.0 04/08/17 07:00 98.1 64 19 134/58 (83) 98 98.1 I & 0 Intake and Output 04/08/17 07:00 Intake Total 1150 ml Output Total 1475 ml Balance -325 ml Intake Oral 25 ml IV Total 1125 ml Output Urine Total 1475 ml # Bowel Movements 1 PHYSICAL EXAM Physical Exam General Appearance: Awake; little more Alert today Oriented x 0 In no Distress Eyes: Sclera Anicteric Conjunctiva Normal EN: No EN Drainage Mucous Memb. moist today Neck: no JVD no JVP Supple no Thyromegaly CVS: S1 S2 no Murmur No Gallop No Rub no Edema Resp: no Rales no Rhonchi no Acc. Muscle use GI: BS +ve NO Bruit Non Tender Non Distended : no CVA tenderness; no Suprapubic Tenderness Assessment & Plan ARF suspect Pre-renal due to sev dehydration. Creat is better with gentle vol repletion. Current FLuid and E-lyte status does not necessitate emergent need for Dialysis. Poor candidate for HD given current functional status; now Non- Oliguric Lactic Acidosis (WAGMA) - marginally ^ed despite Vol repletion - watch trend ^Na - ^ed PPN for now and gradually improving Sev Dehydration - Hypotonic IVF in the form of PPN - gradually improving suspected malnutrition - PPN for now Low Phos - IV K Phos x 1 AMS - suspect asso with infection/ HypoVolemia >> renal dysfunction COMMENT/RELEVANT DATA Meds Current Medications Medications (Trade) Dose Ordered Sig/Jennifer Start Time Stop Time Status Last Admin Dose Admin Acetaminophen (Tylenol) 650 mg PRN Q4HRS PRN 04/04/17 20:30 Amino Acids/ Glycerin/ Electrolytes 1,000 ml @ 125 mls/hr Q8H 04/05/17 09:45 04/08/17 08:43 125 MLS/HR Dextrose (Dextrose 50%-Water Syringe) 12.5 gm PRN Q15MIN PRN 04/04/17 20:30 Enoxaparin Sodium (Lovenox 30mg Syringe) 30 mg Q24H 04/08/17 11:00 Famotidine (Pepcid Vial) 20 mg QHS 04/08/17 21:00 Fentanyl Citrate (Fentanyl 2ml Vial) 50 mcg PRN Q1HR PRN 04/04/17 16:30 04/04/17 20:31 DC Insulin Aspart (NovoLOG) 0-5 UNITS TIDWMEALS 04/05/17 08:00 04/07/17 12:13 2 UNITS Insulin Detemir (Levemir) 7 units BID 04/04/17 21:00 04/08/17 08:47 7 UNITS Ipratropium [place] (Atrovent) 0.2 mg PRN Q6HRS PRN 04/04/17 20:30 Linezolid 300 ml @ 300 mls/hr 1X ONCE 04/06/17 09:00 04/06/17 09:59 DC 04/06/17 08:19 300 MLS/HR Linezolid (Zyvox) 600 mg BID 04/05/17 21:00 04/06/17 21:50 600 MG Lorazepam (Ativan) 2 mg PRN Q4HRS PRN 04/07/17 11:45 04/08/17 01:56 2 MG Magnesium Sulfate/ Dextrose 50 ml @ 25 mls/hr PRN DAILY PRN 04/05/17 09:45 Morphine Sulfate 2 mg PRN Q2HR PRN 04/07/17 11:45 Ondansetron HCl (Zofran) 4 mg PRN Q6HRS PRN 04/07/17 10:30 Piperacillin Sod/ Tazobactam Sod (Zosyn Per Pharmacy) 1 each PRN DAILY PRN 04/04/17 16:15 Piperacillin Sod/ Tazobactam Sod (Zosyn) 3.375 gm Q6HRS 04/06/17 18:00 04/08/17 05:07 3.375 GM Potassium Phosphate 13.6 mmol/Sodium Chloride 104.5333 ml @ 51.221 m... Q2H 04/07/17 11:00 04/07/17 16:59 DC 04/07/17 15:00 51.221 MLS/HR Sodium Chloride 500 ml @ 0 mls/hr QID PRN 04/05/17 09:45 Vancomycin HCl 1 each 1X ONCE 04/06/17 17:00 04/06/17 17:01 Cancel Vancomycin HCl (Vanco Per Pharmacy) 1 each PRN DAILY PRN 04/04/17 16:15 04/05/17 20:49 DC 04/05/17 09:33 1 EACH Vancomycin HCl 1.75 gm/Dextrose 500 ml @ 250 mls/hr 1X ONCE 04/04/17 16:30 04/04/17 18:29 DC 04/04/17 16:54 250 MLS/HR Lab Laboratory Tests Test 04/07/17 11:37 04/07/17 17:33 04/08/17 03:20 04/08/17 07:32 Glucose (Fingerstick) 159 mg/dL (70-99) 142 mg/dL (70-99) 181 mg/dL (70-99) Sodium Level 154 mmol/L (136-145) Potassium Level 4.5 mmol/L (3.5-5.1) Chloride Level 121 mmol/L (98-107) Carbon Dioxide Level 23 mmol/L (21-32) Anion Gap 10 (6-14) Blood Urea Nitrogen 35 mg/dL (8-26) Creatinine 2.4 mg/dL (0.7-1.3) Estimated GFR (Cockcroft-Gault) 25.7 Glucose Level 192 mg/dL (70-99) Lactic Acid Level 2.1 mmol/L (0.4-2.0) Calcium Level 8.2 mg/dL (8.5-10.1) Phosphorus Level 3.3 mg/dL (2.6-4.7) Magnesium Level 2.4 mg/dL (1.8-2.4) Albumin 2.1 g/dL (3.4-5.0) KINJAL CLAUDIO MD Apr 08, 2017 10:49
[2017-04-08 11:00] VITALS: BP 111/49
[2017-04-08] MEDS ORDERED: ENOXAPARIN 30 MG/0.3 ML SYRINGE. SQ SCH (11:00)
[2017-04-08 15:00] VITALS: BP 100/57
--- NOTE | 2017-04-08 15:13 | PDOC3 ---
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 HIgh asp risk DNR HOSPICE Final Diagnosis Problems Medical Problems: (1) Acute renal failure Status: Acute (2) Altered mental status Status: Acute (3) Hypernatremia Status: Acute Brief Hospital Course Allergies Allergies Coded Allergies Type Severity Reaction Last Updated Verified No Known Drug Allergies 03/03/17 No Vital Signs Vital Signs Date Time Temp Pulse Resp B/P (MAP) Pulse Ox O2 Delivery O2 Flow Rate FiO2 04/08/17 15:09 98 Nasal Cannula 2.0 04/08/17 11:00 98.4 72 19 111/49 (69) 98.4 Lab Results Laboratory Tests Test 04/06/17 16:34 04/06/17 20:57 04/07/17 03:15 04/07/17 07:46 Glucose (Fingerstick) 177 mg/dL (70-99) 175 mg/dL (70-99) 166 mg/dL (70-99) White Blood Count 7.3 x10^3/uL (4.0-11.0) Red Blood Count 4.44 x10^6/uL (4.30-5.70) Hemoglobin 12.5 g/dL (13.0-17.5) Hematocrit 40.8 % (39.0-53.0) Mean Corpuscular Volume 92 fL (79-100) Mean Corpuscular Hemoglobin 28 pg (25-35) Mean Corpuscular Hemoglobin Concent 31 g/dL (31-37) Red Cell Distribution Width 16.1 % (11.5-14.5) Platelet Count 126 x10^3/uL (140-400) Neutrophils (%) (Auto) 59 % (31-73) Lymphocytes (%) (Auto) 26 % (24-48) Monocytes (%) (Auto) 8 % (0-9) Eosinophils (%) (Auto) 7 % (0-3) Basophils (%) (Auto) 1 % (0-3) Neutrophils # (Auto) 4.3 x10^3uL (1.8-7.7) Lymphocytes # (Auto) 1.9 x10^3/uL (1.0-4.8) Monocytes # (Auto) 0.6 x10^3/uL (0.0-1.1) Eosinophils # (Auto) 0.5 x10^3/uL (0.0-0.7) Basophils # (Auto) 0.1 x10^3/uL (0.0-0.2) Sodium Level 160 mmol/L (136-145) Potassium Level 3.9 mmol/L (3.5-5.1) Chloride Level 126 mmol/L (98-107) Carbon Dioxide Level 25 mmol/L (21-32) Anion Gap 9 (6-14) Blood Urea Nitrogen 40 mg/dL (8-26) Creatinine 2.5 mg/dL (0.7-1.3) Estimated GFR (Cockcroft-Gault) 24.6 BUN/Creatinine Ratio 16 (6-20) Glucose Level 193 mg/dL (70-99) Lactic Acid Level 2.2 mmol/L (0.4-2.0) Calcium Level 8.7 mg/dL (8.5-10.1) Phosphorus Level 2.2 mg/dL (2.6-4.7) Magnesium Level 2.6 mg/dL (1.8-2.4) Total Bilirubin 0.5 mg/dL (0.2-1.0) Aspartate Amino Transf (AST/SGOT) 47 U/L (15-37) Alanine Aminotransferase (ALT/SGPT) 33 U/L (16-63) Alkaline Phosphatase 99 U/L (46-116) Total Protein 6.7 g/dL (6.4-8.2) Albumin 2.2 g/dL (3.4-5.0) Albumin/Globulin Ratio 0.5 (1.0-1.7) Test 04/07/17 11:37 04/07/17 17:33 04/08/17 03:20 04/08/17 07:32 Glucose (Fingerstick) 159 mg/dL (70-99) 142 mg/dL (70-99) 181 mg/dL (70-99) Sodium Level 154 mmol/L (136-145) Potassium Level 4.5 mmol/L (3.5-5.1) Chloride Level 121 mmol/L (98-107) Carbon Dioxide Level 23 mmol/L (21-32) Anion Gap 10 (6-14) Blood Urea Nitrogen 35 mg/dL (8-26) Creatinine 2.4 mg/dL (0.7-1.3) Estimated GFR (Cockcroft-Gault) 25.7 Glucose Level 192 mg/dL (70-99) Lactic Acid Level 2.1 mmol/L (0.4-2.0) Calcium Level 8.2 mg/dL (8.5-10.1) Phosphorus Level 3.3 mg/dL (2.6-4.7) Magnesium Level 2.4 mg/dL (1.8-2.4) Albumin 2.1 g/dL (3.4-5.0) Test 04/08/17 12:13 Glucose (Fingerstick) 161 mg/dL (70-99) Laboratory Tests Test 04/07/17 17:33 04/08/17 03:20 04/08/17 07:32 04/08/17 12:13 Glucose (Fingerstick) 142 mg/dL (70-99) 181 mg/dL (70-99) 161 mg/dL (70-99) Sodium Level 154 mmol/L (136-145) Potassium Level 4.5 mmol/L (3.5-5.1) Chloride Level 121 mmol/L (98-107) Carbon Dioxide Level 23 mmol/L (21-32) Anion Gap 10 (6-14) Blood Urea Nitrogen 35 mg/dL (8-26) Creatinine 2.4 mg/dL (0.7-1.3) Estimated GFR (Cockcroft-Gault) 25.7 Glucose Level 192 mg/dL (70-99) Lactic Acid Level 2.1 mmol/L (0.4-2.0) Calcium Level 8.2 mg/dL (8.5-10.1) Phosphorus Level 3.3 mg/dL (2.6-4.7) Magnesium Level 2.4 mg/dL (1.8-2.4) Albumin 2.1 g/dL (3.4-5.0) Brief Hospital Course Mr. Stewart is a 86 old male, [facility] resident severe dementia bed bound for 6-7 yrs, has not recognized his sons and dtr for that amt of time, worsened mental status inSNU , Na 167 on admit,. After few days stay and co managed with renal and our discussion about goals of care,agreed to Hospice DNR , and pleasure feeds,. 2 notes today DW syed Duncan Discharge Information Condition at Discharge: Stable Disposition/Orders: D/C to Home w/ Hospice Scheduled Acetaminophen (Tylenol), 2 TAB PO PRN Q4HRS, (Reported) Bisacodyl (Dulcolax), 5 MG PO DAILY, (Reported) Cyanocobalamin (Vitamin B-12) (Vitamin B-12), 500 MCG PO DAILY, (Reported) Donepezil Hcl (Aricept), 1 TAB PO DAILY, (Reported) Furosemide (Lasix), 1.5 TAB PO DAILY, (Reported) Insulin Detemir (Levemir), 14 UNIT SQ HS, (Reported) Insulin Detemir (Levemir), 14 UNIT SQ DAILY08, (Reported) Levothyroxine Sodium (Levothyroxine Sodium), 1 TAB PO DAILY, (Reported) Melatonin (Melatonin), 1 TAB PO QHS, (Reported) Memantine Hcl (Namenda), 10 MG PO AFTRNOON, (Reported) Metformin Hcl (Metformin Hcl), 500 MG PO BIDWMEALS, (Reported) Oxycodone Hcl (Oxycodone Hcl), 0.5 TAB PO Q4HRS, (Reported) Polyethylene Glycol 3350 (Miralax), 1 PACKET PO DAILY, (Reported) Potassium Chloride (Potassium Chloride Oral Liquid), 7.5 MEQ PO DAILY, (Reported ) Quetiapine Fumarate (Seroquel), 1 TAB PO BID, (Reported) Sennosides/Docusate Sodium (Senokot-S Tablet), 2 TAB PO BID, (Reported) Simvastatin (Simvastatin), 0.5 TAB PO QHS, (Reported) Terbinafine Hcl (Terbinafine Hcl), 1 TAB PO DAILY, (Reported) Tramadol Hcl (Tramadol Hcl), 1 TAB PO PRN Q6HRS, (Reported) Valproate Sodium (Valproic Acid), 375 MG PO BID, (Reported) Scheduled PRN Alprazolam (Alprazolam), 0.5 MG PO PRN Q8HRS PRN for ANXIETY / AGITATION, ( Reported) Ipratropium Thurman (Ipratropium Thurman), 1 VIAL NEB PRN Q6HRS PRN for SHORTNESS OF BREATH, (Reported) Miscellaneous Medications Insulin Aspart (Novolog), 100 UNIT SQ, (Reported) Discontinued Medications Acetaminophen (Acetaminophen), 500 MG PO AFTRNOON, (Reported) Loratadine (Claritin), 1 TAB PO DAILY, (Reported) Ondansetron (Zofran Odt), 1 TAB SL Q6HRS PRN for NAUSEA/VOMITING, (Reported) LAURA LIZ MD Apr 08, 2017 15:13
[2017-04-08] MEDS ORDERED: FAMOTIDINE 20 MG/2 ML VIAL IVP SCH (21:00)
== END 2017-04-08 17:53 | disposition hospice, inpatient (51) | DRG 871 ==
LOC: ER 13:35 → 5 NORTH 16:16
PROVIDERS: ADMIT Internal Medicine Hematology & Oncology; ATTEND Internal Medicine Hematology & Oncology
DX: A41.9 Sepsis, unspecified organism (principal); G93.40 Encephalopathy, unspecified; N17.9 Acute kidney failure, unspecified; E46 Unspecified protein-calorie malnutrition; E87.0 Hyperosmolality and hypernatremia; E87.2 Acidosis; E11.9 Type 2 diabetes mellitus without complications; E86.0 Dehydration; F02.80 Dementia in other diseases classified elsewhere, unspecified severity, without behavioral disturbance, psychotic disturbance, mood disturbance, and anxiety; F41.9 Anxiety disorder, unspecified; G30.9 Alzheimer's disease, unspecified; G40.909 Epilepsy, unspecified, not intractable, without status epilepticus; Z66 Do not resuscitate; Z96.641 Presence of right artificial hip joint; F32.9 Major depressive disorder, single episode, unspecified; Z51.5 Encounter for palliative care; M19.90 Unspecified osteoarthritis, unspecified site; Z68.27 Body mass index [BMI] 27.0-27.9, adult; Z74.01 Bed confinement status; Z79.4 Long term (current) use of insulin
CPT/HCPCS: 36415; 70450; 71010; 72192; 73502; 76770; 80048; 80053; 80069; 81001; 82550; 82962; 83605; 83690; 83735; 84100; 84300; 84550; 85007; 85018; 85025; 87040; 87641; 93005; 94760; 96365; 96375; J1815; J2020; J2060; J2270; J2543; J3370; J7030; 92610; 99285-25